=== PATIENT | male | born 1935 | race Caucasian/White ===

== ENCOUNTER → 2017-03-14 | Outpatient (CLI) | payer MEDICARE ==
[2017-03-14 10:44] LABS: Basophils % (A) 0 %; CH 31.6; CHCM 32.7; Eosinophils # (A) 0.3 k/uL (0-0.7); Eosinophils % (A) 3 %; HDW 2.58; HGB 14.3 gm/dL (13.0-17.5); Luc # (Auto) 0.17; Luc % (Auto) 2; Lymphocytes # (A) 1.7 k/uL (1.0-4.8); Lymphocytes % (A) 23 %; MCH 32.2 pg (25.0-35.0); MCHC 33.2 g/dL (31.0-37.0); MCV 97.2 fL (80.0-100.0); Mean Platelet Volume 8.5; Monocytes # (A) 0.4 k/uL (0-1.0); Monocytes % (A) 6 %; Neutrophils # (A) 4.9 k/uL (1.3-7.7); Neutrophils % (A) 66 %; RBC 4.43 m/uL (4.30-5.90); RDW 13.9 % (11.5-15.5); WBC 7.5 k/uL (3.8-10.6); WBC (Perox) 7.45
[2017-03-14 11:02] LABS: ALT 38 U/L (21-72); AST 25 U/L (17-59); Alkaline Phosphatase 65 U/L (38-126); Anion Gap 9 mmol/L; Blood Urea Nitrogen 14 mg/dL (9-20); Carbon Dioxide 25 mmol/L (22-30); Chloride 106 mmol/L (98-107); Cholesterol 159 mg/dL (<200); Glucose 129 mg/dL (74-99); HDL Cholesterol 59 mg/dL (40-60); Non-African American GFR(MDRD) >60 (>60 ml/min/1.73 sqM); Sodium 140 mmol/L (137-145); Total Bilirubin 0.4 mg/dL (0.2-1.3); Total Protein 6.5 g/dL (6.3-8.2)
[2017-03-14 14:16] LABS: Hemoglobin A1C 7.3 % (4.2-6.1)
== END | disposition home or self-care (01) ==
LOC: LABWHC1 10:05
PROVIDERS: ATTEND Family Medicine
DX: E11.9 Type 2 diabetes mellitus without complications (principal)
CPT/HCPCS: 36415; 80053; 80061; 83036; 85025

== ENCOUNTER → 2017-10-10 | Outpatient (CLI) | payer MEDICARE ==
[2017-10-10 11:09] LABS: Basophils % (A) 1 %; Eosinophils # (A) 0.3 k/uL (0-0.7); Eosinophils % (A) 4 %; HCT 46.4 % (39.0-53.0); Lymphocytes # (A) 1.8 k/uL (1.0-4.8); Lymphocytes % (A) 23 %; MCH 29.8 pg (25.0-35.0); MCHC 32.3 g/dL (31.0-37.0); MCV 92.1 fL (80.0-100.0); Mean Platelet Volume 7.5; Monocytes # (A) 0.6 k/uL (0-1.0); Monocytes % (A) 7 %; Neutrophils # (A) 4.9 k/uL (1.3-7.7); Neutrophils % (A) 62 %; Platelet Count 305 k/uL (150-450); RBC 5.03 m/uL (4.30-5.90); RDW 13.7 % (11.5-15.5)
[2017-10-10 11:23] LABS: ALT 30 U/L (21-72); AST 24 U/L (17-59); Albumin 3.9 g/dL (3.5-5.0); Alkaline Phosphatase 75 U/L (38-126); Anion Gap 8 mmol/L; Blood Urea Nitrogen 18 mg/dL (9-20); Calcium 10.2 mg/dL (8.4-10.2); Carbon Dioxide 28 mmol/L (22-30); Chloride 103 mmol/L (98-107); Cholesterol 159 mg/dL (<200); Glucose 137 mg/dL (74-99); HDL Cholesterol 64 mg/dL (40-60); LDL Cholesterol,Calculated 74 mg/dL (0-99); Potassium 5.2 mmol/L (3.5-5.1); Sodium 139 mmol/L (137-145); Total Bilirubin 0.4 mg/dL (0.2-1.3); Total Protein 6.6 g/dL (6.3-8.2); Triglycerides 104 mg/dL (<150)
[2017-10-10 20:40] LABS: Hemoglobin A1C 7.6 % (4.0-6.0)
== END | disposition home or self-care (01) ==
LOC: LABWHC1 10:14
PROVIDERS: ATTEND Family Medicine
DX: E11.9 Type 2 diabetes mellitus without complications (principal)
CPT/HCPCS: 36415; 80053; 80061; 83036; 85025

== ENCOUNTER → 2018-02-06 | Outpatient (CLI) | payer MEDICARE ==
[2018-02-06 11:17] LABS: Basophils % (A) 1 %; Eosinophils # (A) 0.4 k/uL (0-0.7); Eosinophils % (A) 6 %; HCT 46.9 % (39.0-53.0); HGB 15.2 gm/dL (13.0-17.5); Lymphocytes # (A) 1.6 k/uL (1.0-4.8); Lymphocytes % (A) 23 %; MCH 30.8 pg (25.0-35.0); MCHC 32.3 g/dL (31.0-37.0); MCV 95.2 fL (80.0-100.0); Mean Platelet Volume 7.3; Monocytes # (A) 0.4 k/uL (0-1.0); Monocytes % (A) 6 %; Neutrophils # (A) 4.1 k/uL (1.3-7.7); Neutrophils % (A) 60 %; Platelet Count 296 k/uL (150-450); RBC 4.93 m/uL (4.30-5.90); RDW 13.9 % (11.5-15.5); WBC 6.8 k/uL (3.8-10.6)
[2018-02-06 11:31] LABS: ALT 29 U/L (21-72); AST 25 U/L (17-59); Albumin 4.1 g/dL (3.5-5.0); Alkaline Phosphatase 67 U/L (38-126); Anion Gap 7 mmol/L; Blood Urea Nitrogen 18 mg/dL (9-20); Calcium 10.2 mg/dL (8.4-10.2); Carbon Dioxide 27 mmol/L (22-30); Chloride 105 mmol/L (98-107); Cholesterol 161 mg/dL (<200); Glucose 141 mg/dL (74-99); HDL Cholesterol 62 mg/dL (40-60); LDL Cholesterol,Calculated 76 mg/dL (0-99); Potassium 5.1 mmol/L (3.5-5.1); Sodium 139 mmol/L (137-145); Total Bilirubin 0.5 mg/dL (0.2-1.3); Total Protein 6.7 g/dL (6.3-8.2); Triglycerides 114 mg/dL (<150)
[2018-02-06 18:34] LABS: Hemoglobin A1C 7.5 % (4.0-6.0)
== END | disposition home or self-care (01) ==
LOC: LABWHC1 10:47
PROVIDERS: ATTEND Family Medicine
DX: E11.9 Type 2 diabetes mellitus without complications (principal)
CPT/HCPCS: 36415; 80053; 80061; 83036; 85025

== ENCOUNTER → 2018-06-07 | Outpatient (CLI) | payer MEDICARE ==
[2018-06-07 12:09] LABS: Basophils % (A) 0 %; Eosinophils # (A) 0.3 k/uL (0-0.7); Eosinophils % (A) 4 %; HCT 45.1 % (39.0-53.0); HGB 14.6 gm/dL (13.0-17.5); Lymphocytes # (A) 1.5 k/uL (1.0-4.8); Lymphocytes % (A) 22 %; MCHC 32.4 g/dL (31.0-37.0); MCV 95.6 fL (80.0-100.0); Mean Platelet Volume 7.4; Monocytes # (A) 0.4 k/uL (0-1.0); Monocytes % (A) 6 %; Neutrophils # (A) 4.4 k/uL (1.3-7.7); Neutrophils % (A) 65 %; Platelet Count 287 k/uL (150-450); RBC 4.72 m/uL (4.30-5.90); RDW 13.2 % (11.5-15.5); WBC 6.8 k/uL (3.8-10.6)
[2018-06-07 17:06] LABS: Albumin 4.1 g/dL (3.80-4.90); Albumin/Globulin Ratio 2.05 (1.20-2.10); Anion Gap 8.6 mmol/L (4.00-12.00); Calcium 9.6 mg/dL (8.7-10.3); Carbon Dioxide 25.4 mmol/L (21.6-31.8); LDL Cholesterol,Calculated 66.2 mg/dL (0.0-131.0); Total Bilirubin 0.4 mg/dL (0.2-1.2); Total Protein 6.1 g/dL (6.2-8.2); VLDL Calculation 17.8 mg/dL (5.00-40.00)
[2018-06-07 18:55] LABS: Hemoglobin A1C 7.7 % (4.0-6.0)
== END ==
LOC: LABWHC1 10:48
PROVIDERS: ATTEND Family Medicine
DX: E11.9 Type 2 diabetes mellitus without complications (principal); Z12.5 Encounter for screening for malignant neoplasm of prostate
CPT/HCPCS: 36415; 80053; 80061; 83036; 84153; 84443; 85025

== ENCOUNTER 2018-09-11 09:26 | Emergency (ER) | payer MEDICARE ==
[2018-09-11 09:33] VITALS: PULSE 91; RESP 17; TEMP 98.1
[2018-09-11] MEDS ORDERED: SODIUM CHLORIDE 0.9% 1,000 ML IV STA (09:39)
[2018-09-11 10:10] LABS: Basophils % (A) 0 %; Eosinophils # (A) 0.1 k/uL (0-0.7); Eosinophils % (A) 1 %; HGB 13.5 gm/dL (13.0-17.5); Lymphocytes # (A) 1.7 k/uL (1.0-4.8); Lymphocytes % (A) 16 %; MCH 30.7 pg (25.0-35.0); MCHC 31.4 g/dL (31.0-37.0); MCV 97.7 fL (80.0-100.0); Mean Platelet Volume 7.1; Monocytes # (A) 0.7 k/uL (0-1.0); Monocytes % (A) 6 %; Neutrophils # (A) 8.2 k/uL (1.3-7.7); Neutrophils % (A) 75 %; Platelet Count 394 k/uL (150-450); RDW 13.5 % (11.5-15.5)
[2018-09-11 10:24] LABS: ALT 40 U/L (21-72); AST 21 U/L (17-59); Albumin 3.4 g/dL (3.5-5.0); Alkaline Phosphatase 82 U/L (38-126); Amylase <30 U/L (30-110); Anion Gap 7 mmol/L; Blood Urea Nitrogen 21 mg/dL (9-20); Calcium 9.5 mg/dL (8.4-10.2); Carbon Dioxide 26 mmol/L (22-30); Chloride 105 mmol/L (98-107); Glucose 319 mg/dL (74-99); Lipase 97 U/L (23-300); Potassium 4.8 mmol/L (3.5-5.1); Sodium 138 mmol/L (137-145); Total Bilirubin 0.4 mg/dL (0.2-1.3); Total Protein 5.9 g/dL (6.3-8.2)
--- NOTE | 2018-09-11 10:30 | XR ---
EXAMINATION TYPE: XR KUB DATE OF EXAM: 09/11/2018 COMPARISON: NONE HISTORY: Pain TECHNIQUE: Single supine KUB image of the abdomen is obtained FINDINGS: Small bowel demonstrates no evidence for dilatation or air fluid levels. Gas and fecal material is seen in non-distended colon. No convincing evidence for pneumoperitoneum. No unusual calcifications. The lung bases are clear. The osseous structures are intact. IMPRESSION: 1. Overall nonobstructive bowel gas pattern.
[2018-09-11 10:36] LABS: Creatine Kinase 53 U/L (55-170)
[2018-09-11 10:48] LABS: Creatine Kinase MB 2.5 ng/mL (0.0-2.4); Troponin I <0.012 ng/mL (0.000-0.034)
--- NOTE | 2018-09-11 12:24 | CT ---
EXAMINATION TYPE: CT ChestAbdPelvis w con DATE OF EXAM: 09/11/2018 COMPARISON: None HISTORY: Abdominal pain CT DLP: 854.3 mGycm CONTRAST: Contrast enhanced Trauma CT of the Chest, Abdomen and Pelvis is performed with IV Contrast, patient i njected with 100 mL of Isovue 300. Chest: LUNGS: There is no evidence for pneumothorax. The lungs are clear and free of focal contusion or ate lectasis. No pleural effusion MEDIASTINUM: Thoracic aorta is of normal caliber without CT evidence to suggest traumatic induced ao rtic injury. No mediastinal fluid or blood. No pericardial fluid or cardia abnormality. HILAR STRUCTURES: No evidence for mass. No hilar adenopathy is appreciated. OTHER: No significant abnormality. OSSEOUS: No displaced osseous fractures identified. CT ABDOMEN AND PELVIS FINDINGS: LIVER/GB: No focal laceration, contusion or subcapsular hemorrhage. No calcified gallstones. No s pace occupying hepatic lesion. Biliary tree is of normal caliber. PANCREAS: No evidence for transection. No inflammation. No distinct mass. SPLEEN: No focal laceration, contusion or subcapsular hemorrhage. ADRENALS: No hemorrhage. No nodule. No thickening. KIDNEYS/BLADDER: No focal laceration, contusion or subcapsular hemorrhage. No hydronephrosis. No n ephrolithiasis. Left-sided renal cysts noted. BOWEL: Bowel is intact. No evidence for pneumoperitoneum. GENITAL ORGANS: No gross abnormality. LYMPH NODES: No greater than 1cm abdominal or pelvic lymph nodes are appreciated. AORTA: No traumatic aortic injury visualized. OSSEOUS STRUCTURES: No displaced fracture seen. Grade 1 anterolisthesis L4 and L5. Generative change s lumbar spine. OTHER: There is hemorrhage noted adjacent to the right adrenal gland and proximal and mid inferior ve na cava as well as the adjacent duodenum. Hemorrhage extends to the undersurface of the liver. There is duodenal wall thickening noted. Area of hemorrhage is difficult to measure however is estimated at 17.9 x 15.3 x 18.6 cm.Active hemorrhage is not appreciated. There is no evidence for free air. IMPRESSION: 1. No evidence for traumatic injury to the chest. 2. There is hemorrhage noted adjacent to the right adrenal gland and proximal and mid inferior vena cava as well as the adjacent duodenum. Hemorrhage extends to the undersurface of the liver. There is duodenal wall thickening noted. Area of hemorrhage is difficult to measure however is estimated at 17 .9 x 15.3 x 18.6 cm. Origin of the hemorrhage is difficult to elucidate.
--- NOTE | 2018-09-11 12:57 | ED ---
Abdominal Pain HPI - General Chief Complaint: Abdominal Pain Stated Complaint: abdominal pain Time Seen by Provider: 09/11/18 09:31 Source: patient, family, EMS, RN notes reviewed Mode of arrival: EMS Limitations: no limitations - History of Present Illness Initial Comments: This 83-year-old male who states he woke up this morning with some right lower quadrant abdominal pain he had 1 episode nausea vomiting. He looked pale diaphoretic a home was dizzy. Pain was about 3/10 severity. He recently has been treated for apparent respiratory infection with antibiotics and steroids. His glucose was 394. Of note also he states he slipped and fell about 2 weeks ago on the ice labs left side. He denies any head neck or back pain though he did state that the pain somewhat radiated toward the back this morning. No trouble with urination or bowel movements. Fevers chills or other symptoms reported no other modifying factors. Per his he also is had a persistent cough for last several weeks. MD Complaint: abdominal pain - Related Data Home Medications Medication Instructions Recorded Confirmed Aspirin [Adult Low Dose Aspirin EC] 81 mg PO HS 11/06/15 09/11/18 Cholecalciferol [Vitamin D3] 1,000 unit PO DAILY 11/06/15 09/11/18 EPINEPHrine (Auto Inject) [Epipen] 1 dose IM DAILY PRN 11/06/15 09/11/18 Finasteride 5 mg PO HS 11/06/15 09/11/18 Multivitamins, Thera [Multivitamin] 1 tab PO DAILY 11/06/15 09/11/18 Simvastatin 20 mg PO HS 11/06/15 09/11/18 metFORMIN HCL 1,000 mg PO HS 11/06/15 09/11/18 metFORMIN HCL 500 mg PO QAM 11/06/15 09/11/18 Benzonatate [Tessalon Perles] 100 mg PO TID PRN 09/11/18 09/11/18 Cephalexin [Keflex] 500 mg PO Q6H 09/11/18 09/11/18 methylPREDNISolone Dose Pack See Taper PO DAILY 09/11/18 09/11/18 [Medrol Dose Pack] Allergies Allergy/AdvReac Type Severity Reaction Status Date / Time YELLOW JACKET VENOM Allergy Swelling Uncoded 11/06/15 12:09 Review of Systems ROS Statement: Those systems with pertinent positive or pertinent negative responses have been documented in the HPI. ROS Other: All systems not noted in ROS Statement are negative. Past Medical History Past Medical History: Diabetes Mellitus, Hyperlipidemia, Prostate Disorder Additional Past Medical History / Comment(s): BACK PAIN. LEG PAIN. BPH. History of Any Multi-Drug Resistant Organisms: None Reported Past Surgical History: Joint Replacement, Orthopedic Surgery Additional Past Surgical History / Comment(s): BILATEAL KNEE REPLACED. BILATERAL CARPAL TUNNEL. Past Anesthesia/Blood Transfusion Reactions: No Reported Reaction Past Psychological History: Anxiety Smoking Status: Light tobacco smoker Past Alcohol Use History: None Reported Past Drug Use History: None Reported - Past Family History Mother Family Medical History: No Reported History General Exam Limitations: no limitations Course Vital Signs 09/11/18 09:31 Temperature 98.1 F Pulse Rate 91 Respiratory 17 Rate Blood Pressure 115/77 O2 Sat by Pulse 93 L Oximetry Medical Decision Making - Medical Decision Making I did discuss the case with the patient has as well as with surgery on- call due to the extent of the hemorrhage and the involvement of the adrenal and was felt to be needed have endocrinology involvement which is not available at this facility. I did discuss the case with Dr. Bruce at [facility] was agreed to accept the patient transfer after discussion with their surgery service. Patient is hemodynamically stable at this time UA was pending at the time of this dictation. - Lab Data Result diagrams: 09/11/18 09:28 09/11/18 09:28 Lab Results 09/11/18 09/11/18 09/11/18 Range/Units 09:28 09:28 09:28 WBC 11.0 H (3.8-10.6) k/uL RBC 4.40 (4.30-5.90) m/uL Hgb 13.5 (13.0-17.5) gm/dL Hct 43.0 (39.0-53.0) % MCV 97.7 (80.0-100.0) fL MCH 30.7 (25.0-35.0) pg MCHC 31.4 (31.0-37.0) g/dL RDW 13.5 (11.5-15.5) % Plt Count 394 (150-450) k/uL Neutrophils % 75 % Lymphocytes % 16 % Monocytes % 6 % Eosinophils % 1 % Basophils % 0 % Neutrophils # 8.2 H (1.3-7.7) k/uL Lymphocytes # 1.7 (1.0-4.8) k/uL Monocytes # 0.7 (0-1.0) k/uL Eosinophils # 0.1 (0-0.7) k/uL Basophils # 0.0 (0-0.2) k/uL Sodium 138 (137-145) mmol/L Potassium 4.8 (3.5-5.1) mmol/L Chloride 105 (98-107) mmol/L Carbon Dioxide 26 (22-30) mmol/L Anion Gap 7 mmol/L BUN 21 H (9-20) mg/dL Creatinine 0.76 (0.66-1.25) mg/dL Est GFR (CKD-EPI)AfAm >90 (>60 ml/min/1.73 sqM) Est GFR (CKD-EPI)NonAf 86 (>60 ml/min/1.73 sqM) Glucose 319 H (74-99) mg/dL Calcium 9.5 (8.4-10.2) mg/dL Total Bilirubin 0.4 (0.2-1.3) mg/dL AST 21 (17-59) U/L ALT 40 (21-72) U/L Alkaline Phosphatase 82 (38-126) U/L Total Creatine Kinase 53 L (55-170) U/L CK-MB (CK-2) 2.5 H (0.0-2.4) ng/mL CK-MB (CK-2) Rel Index 4.7 Troponin I <0.012 (0.000-0.034) ng/mL Total Protein 5.9 L (6.3-8.2) g/dL Albumin 3.4 L (3.5-5.0) g/dL Amylase <30 L (30-110) U/L Lipase 97 (23-300) U/L - EKG Data -: EKG Interpreted by [facility] EKG shows normal: sinus rhythm (Sinus rhythm rate 75. Interval 176 QRS duration 116 daily since QTC 426/469 incomplete right bundle-branch block) - Radiology Data Radiology results: report reviewed, image reviewed (I did review the imaging and report KUB is nonspecific CAT scan showed evidence of hemorrhage noted adjacent to the right adrenal gland proximal and mid and inferior vena cava as well as adjacent duodenum extensively under service the liver. There is duodenal wall thickening also noted. The area of hemorrhage is estimated at 17.9 x 15.3 x 18.6 cm the origin is difficult to elucidate.) Disposition Clinical Impression: Abdominal pain, Retroperitoneal hemorrhage Disposition: OTHER INSTITUTION NOT DEFINED Condition: Serious Referrals: Alejandro Henriquez MD [Primary Care Provider] - 1-2 days - Out of Hospital Transfer - Req. Specs Out of Hospital Transfer - Requested Specifics: Other Emergency Center
[2018-09-11 13:38] LABS: Appearance,Urine Clear (Clear); Bilirubin,Urine Negative (Negative); Blood,Urine Negative (Negative); Color,Urine Yellow; Glucose,Urine (UA) 1+ (Negative); Ketones,Urine Negative (Negative); Leukocyte Esterase,Urine Negative (Negative); Nitrite,Urine Negative (Negative); PH, Urine 5.5 (5.0-8.0); Protein,Urine Trace (Negative); Urobilinogen,Urine <2.0 mg/dL (<2.0)
[2018-09-11 14:32] LABS: Specific Gravity,Urine >1.050 (1.001-1.035)
[2018-09-11] MEDS ORDERED: HYDROmorphone 0.5 MG/0.5 ML SYRINGE IVP STA (14:41)
[2018-09-11 14:50] VITALS: BP 113/69
== END 2018-09-11 15:10 | disposition short-term general hospital (02) ==
LOC: EC 09:26
DX: R58 Hemorrhage, not elsewhere classified (principal); R10.31 Right lower quadrant pain; R11.2 Nausea with vomiting, unspecified; R42 Dizziness and giddiness; E11.9 Type 2 diabetes mellitus without complications; E78.5 Hyperlipidemia, unspecified; N40.0 Benign prostatic hyperplasia without lower urinary tract symptoms; F17.200 Nicotine dependence, unspecified, uncomplicated; Z79.82 Long term (current) use of aspirin; Z79.84 Long term (current) use of oral hypoglycemic drugs; Z79.899 Other long term (current) drug therapy; Z91.030 Bee allergy status; Z96.653 Presence of artificial knee joint, bilateral
CPT/HCPCS: 36415; 93005; 80053; 82150; 82550; 82553; 83690; 84484; 85025; 81003; 74018; 71260; 74177; 99285; 96374; 96361 ×6; J1170; Q9967

== ENCOUNTER → 2018-09-21 | Outpatient (CLI) | payer MEDICARE ==
[2018-09-21 11:34] LABS: Basophils % (A) 0 %; Eosinophils % (A) 0 %; HCT 43.7 % (39.0-53.0); HGB 13.5 gm/dL (13.0-17.5); Lymphocytes # (A) 1.5 k/uL (1.0-4.8); Lymphocytes % (A) 10 %; MCHC 30.9 g/dL (31.0-37.0); MCV 97.1 fL (80.0-100.0); Mean Platelet Volume 6.4; Monocytes # (A) 0.9 k/uL (0-1.0); Monocytes % (A) 6 %; Neutrophils # (A) 12.4 k/uL (1.3-7.7); Neutrophils % (A) 83 %; Platelet Count 647 k/uL (150-450); RDW 13.9 % (11.5-15.5)
[2018-09-21 16:26] LABS: Albumin 4.7 g/dL (3.80-4.90); Albumin/Globulin Ratio 1.81 (1.60-3.17); Anion Gap 18.7 mmol/L (4.00-12.00); Calcium 10.6 mg/dL (8.7-10.3); Carbon Dioxide 39.3 mmol/L (21.6-31.8); Globulin 2.6 g/dL (1.6-3.3); LDL Cholesterol,Calculated 118.6 mg/dL (0.0-131.0); Potassium 3.8 mmol/L (3.5-5.5); Total Bilirubin 1.1 mg/dL (0.3-1.2); Total Protein 7.3 g/dL (6.2-8.2); VLDL Calculation 40.4 mg/dL (5.00-40.00)
[2018-09-21 20:02] LABS: Hemoglobin A1C 7.8 % (4.0-6.0)
== END | disposition home or self-care (01) ==
LOC: LABWHC1 10:32
PROVIDERS: ATTEND Family Medicine
DX: E11.9 Type 2 diabetes mellitus without complications (principal)
CPT/HCPCS: 36415; 80053; 80061; 83036; 85025

== ENCOUNTER 2018-09-22 15:48 | Inpatient (IN) | payer MEDICARE ==
[2018-09-22] MEDS ORDERED: ONDANSETRON 4 MG/2 ML VIAL IVP STA ×2 (16:55→19:20)
[2018-09-22] MEDS ORDERED: SODIUM CHLORIDE 0.9% 1,000 ML IV STA ×2 (16:55)
[2018-09-22 17:50] LABS: Basophils % (A) 0 %; Eosinophils # (A) 0.1 k/uL (0-0.7); Eosinophils % (A) 1 %; HCT 45.5 % (39.0-53.0); HGB 14.5 gm/dL (13.0-17.5); Lymphocytes # (A) 0.9 k/uL (1.0-4.8); Lymphocytes % (A) 6 %; MCH 30.8 pg (25.0-35.0); MCHC 31.8 g/dL (31.0-37.0); Mean Platelet Volume 6.6; Monocytes % (A) 7 %; Neutrophils # (A) 12.6 k/uL (1.3-7.7); Neutrophils % (A) 86 %; Platelet Count 715 k/uL (150-450); RBC 4.69 m/uL (4.30-5.90); RDW 13.9 % (11.5-15.5); WBC 14.6 k/uL (3.8-10.6)
--- NOTE | 2018-09-22 18:00 | ED ---
Nausea/Vomiting/Diarrhea HPI <Ezekiel Zavala - Last Filed: 09/22/18 19:18> - General Source: patient, RN notes reviewed, old records reviewed Mode of arrival: wheelchair Limitations: no limitations <Grace Zhu - Last Filed: 09/22/18 19:34> - General Chief complaint: Nausea/Vomiting/Diarrhea Stated complaint: Weakness, vomiting Time Seen by Provider: 09/22/18 16:28 - History of Present Illness Initial comments: Patient is an 83-year-old male presents to return today with complaints of nausea and vomiting. Symptoms have been going on for the past 4 days. Patient was recently admitted for significant [id number] peritoneal hemorrhage on to the colon. Since that time he is also been dealing with bronchitis. He's been on 2 rounds of Keflex. He reports that his cough is getting better at this time. Patient reports he followed with his primary care provider they did lab work yesterday. He was discharged from the PCP was Genoveva consistent multiple episodes of vomiting even with Zofran. Patient is concern for dehydration. He reports his been no bloody emesis. He has had normal stools. Normal urination. (Grace Zhu) - Related Data Home Medications Medication Instructions Recorded Confirmed Aspirin [Adult Low Dose Aspirin EC] 81 mg PO HS 11/06/15 09/22/18 Cholecalciferol [Vitamin D3] 1,000 unit PO DAILY 11/06/15 09/22/18 EPINEPHrine (Auto Inject) [Epipen] 1 dose IM DAILY PRN 11/06/15 09/22/18 Finasteride 5 mg PO HS 11/06/15 09/22/18 Multivitamins, Thera [Multivitamin] 1 tab PO DAILY 11/06/15 09/22/18 Simvastatin 20 mg PO HS 11/06/15 09/22/18 metFORMIN HCL 1,000 mg PO HS 11/06/15 09/22/18 metFORMIN HCL 500 mg PO QAM 11/06/15 09/22/18 Cephalexin [Keflex] 500 mg PO Q6H 09/11/18 09/22/18 Allergies Allergy/AdvReac Type Severity Reaction Status Date / Time YELLOW JACKET VENOM Allergy Swelling Uncoded 09/22/18 16:07 Review of Systems ROS Other: All systems not noted in ROS Statement are negative. <Ezekiel Zavala - Last Filed: 09/22/18 19:18> ROS Other: All systems not noted in ROS Statement are negative. <Shahida Zhuily - Last Filed: 09/22/18 19:34> ROS Statement: Those systems with pertinent positive or pertinent negative responses have been documented in the HPI. Past Medical History Past Medical History: Diabetes Mellitus, Hyperlipidemia, Prostate Disorder Additional Past Medical History / Comment(s): BACK PAIN. LEG PAIN. BPH. History of Any Multi-Drug Resistant Organisms: None Reported Past Surgical History: Joint Replacement, Orthopedic Surgery Additional Past Surgical History / Comment(s): BILATEAL KNEE REPLACED. BILATERAL CARPAL TUNNEL. Past Anesthesia/Blood Transfusion Reactions: No Reported Reaction Past Psychological History: Anxiety Smoking Status: Light tobacco smoker Past Alcohol Use History: None Reported Past Drug Use History: None Reported - Past Family History Mother Family Medical History: No Reported History <Grace Zhu - Last Filed: 09/22/18 19:34> General Exam <Ezekiel Zavala - Last Filed: 09/22/18 19:18> Limitations: no limitations General appearance: alert, in no apparent distress Head exam: Present: atraumatic, normocephalic, normal inspection Eye exam: Present: normal appearance, PERRL, EOMI. Absent: scleral icterus, conjunctival injection, periorbital swelling ENT exam: Present: normal exam, mucous membranes moist, other (Poor dentition) Neck exam: Present: normal inspection. Absent: tenderness, meningismus, lymphadenopathy Respiratory exam: Present: normal lung sounds bilaterally. Absent: respiratory distress, wheezes, rales, rhonchi, stridor Cardiovascular Exam: Present: regular rate, normal rhythm, normal heart sounds. Absent: systolic murmur, diastolic murmur, rubs, gallop, clicks GI/Abdominal exam: Present: soft, normal bowel sounds. Absent: distended, tenderness, guarding, rebound, rigid Extremities exam: Present: normal inspection, full ROM, normal capillary refill. Absent: tenderness, pedal edema, joint swelling, calf tenderness Back exam: Present: normal inspection Neurological exam: Present: alert, oriented X3, CN II-XII intact Psychiatric exam: Present: normal affect, normal mood Skin exam: Present: warm, dry, intact, normal color. Absent: rash <Grace Zhu - Last Filed: 09/22/18 19:34> - General Exam Comments Initial Comments: His is a 83-year-old male. Alert and oriented 3. No acute distress. ( Grace Zhu) Vital Signs 09/22/18 09/22/18 09/22/18 16:04 17:33 18:33 Temperature 97.7 F Pulse Rate 101 H 101 H 94 Respiratory 16 20 18 Rate Blood Pressure 97/65 113/69 106/64 O2 Sat by Pulse 90 L 94 L 97 Oximetry 09/22/18 19:28 Temperature Pulse Rate 89 Respiratory 18 Rate Blood Pressure 122/75 O2 Sat by Pulse 98 Oximetry Medical Decision Making - Lab Data Result diagrams: 09/22/18 17:25 09/22/18 17:25 <Ezekiel Zavala - Last Filed: 09/22/18 19:18> - Lab Data Result diagrams: 09/22/18 17:25 09/22/18 17:25 <Grace Zhu - Last Filed: 09/22/18 19:34> - Medical Decision Making Patient reevaluated by myself, Dr. Zavala. Patient resting comfortably in bed. Abdomen is soft and nontender. Case discussed in detail with Dr. Henriquez who will admit his patient. He does agree with ultrasound as well as consult with nephrology and cardiology and general surgery. Patient and family are updated. Aspirin and heparin will be held at this time secondary to concern for abdominal hemorrhage 10 days ago. Patient was transferred to [facility] at that point and observed and discharged. (Ezekiel Zavala) Patient is an 83-year-old male who presents weren't sure today with nausea and vomiting for the past 4 days. Patient's denies any abdominal pain. He is also had abdominal hemorrhage and was admitted to [facility] 10 days ago. Patient was started on 2 L bolus. Mustafa catheter placed measure urine output. Patient's lab work today does show significant decline in renal function within the past 24 hours. BUN of 110 and creatinine of 5.18. Patient white blood cell count is mildly elevated as well could be reactive due to vomiting. Given his abdomen is soft and nontender. Patient will be admitted at this time with consult to general surgery, nephrology and cardiology. He had an elevated troponin likely secondary to acute kidney injury. Patient will have repeat troponins. Due to his recent abdominal hemorrhage we will hold heparin and aspirin. (Grace Zhu) - Lab Data Lab Results 09/22/18 09/22/18 09/22/18 Range/Units 17:25 17:25 17:25 WBC 14.6 H (3.8-10.6) k/uL RBC 4.69 (4.30-5.90) m/uL Hgb 14.5 (13.0-17.5) gm/dL Hct 45.5 (39.0-53.0) % MCV 97.0 (80.0-100.0) fL MCH 30.8 (25.0-35.0) pg MCHC 31.8 (31.0-37.0) g/dL RDW 13.9 (11.5-15.5) % Plt Count 715 H (150-450) k/uL Neutrophils % 86 % Lymphocytes % 6 % Monocytes % 7 % Eosinophils % 1 % Basophils % 0 % Neutrophils # 12.6 H (1.3-7.7) k/uL Lymphocytes # 0.9 L (1.0-4.8) k/uL Monocytes # 1.0 (0-1.0) k/uL Eosinophils # 0.1 (0-0.7) k/uL Basophils # 0.0 (0-0.2) k/uL PT 10.7 (9.0-12.0) sec INR 1.0 (<1.2) APTT 24.9 (22.0-30.0) sec Sodium 141 (137-145) mmol/L Potassium 4.4 (3.5-5.1) mmol/L Chloride 65 L* (98-107) mmol/L Carbon Dioxide 51 H* (22-30) mmol/L Anion Gap 25 mmol/L BUN 111 H* (9-20) mg/dL Creatinine 5.18 H (0.66-1.25) mg/dL Est GFR (CKD-EPI)AfAm 11 (>60 ml/min/1.73 sqM) Est GFR (CKD-EPI)NonAf 10 (>60 ml/min/1.73 sqM) Glucose 456 H (74-99) mg/dL Calcium 9.5 (8.4-10.2) mg/dL Total Bilirubin 1.4 H (0.2-1.3) mg/dL AST 30 (17-59) U/L ALT 36 (21-72) U/L Alkaline Phosphatase 132 H (38-126) U/L Troponin I (0.000-0.034) ng/mL Total Protein 8.2 (6.3-8.2) g/dL Albumin 4.5 (3.5-5.0) g/dL Amylase 47 (30-110) U/L Lipase 144 (23-300) U/L Blood Type Blood Type Confirm Blood Type Recheck Antibody Screen Spec Expiration Date 09/22/18 09/22/18 09/22/18 Range/Units 17:25 17:25 18:42 WBC (3.8-10.6) k/uL RBC (4.30-5.90) m/uL Hgb (13.0-17.5) gm/dL Hct (39.0-53.0) % MCV (80.0-100.0) fL MCH (25.0-35.0) pg MCHC (31.0-37.0) g/dL RDW (11.5-15.5) % Plt Count (150-450) k/uL Neutrophils % % Lymphocytes % % Monocytes % % Eosinophils % % Basophils % % Neutrophils # (1.3-7.7) k/uL Lymphocytes # (1.0-4.8) k/uL Monocytes # (0-1.0) k/uL Eosinophils # (0-0.7) k/uL Basophils # (0-0.2) k/uL PT (9.0-12.0) sec INR (<1.2) APTT (22.0-30.0) sec Sodium (137-145) mmol/L Potassium (3.5-5.1) mmol/L Chloride (98-107) mmol/L Carbon Dioxide (22-30) mmol/L Anion Gap mmol/L BUN (9-20) mg/dL Creatinine (0.66-1.25) mg/dL Est GFR (CKD-EPI)AfAm (>60 ml/min/1.73 sqM) Est GFR (CKD-EPI)NonAf (>60 ml/min/1.73 sqM) Glucose (74-99) mg/dL Calcium (8.4-10.2) mg/dL Total Bilirubin (0.2-1.3) mg/dL AST (17-59) U/L ALT (21-72) U/L Alkaline Phosphatase (38-126) U/L Troponin I 0.787 H* (0.000-0.034) ng/mL Total Protein (6.3-8.2) g/dL Albumin (3.5-5.0) g/dL Amylase (30-110) U/L Lipase (23-300) U/L Blood Type AB Positive Blood Type Confirm AB Positive Blood Type Recheck CABO Indicated Antibody Screen NEGATIVE Spec Expiration Date 09/25/20182324 Disposition <Ezekiel Zavala - Last Filed: 09/22/18 19:18> Is patient prescribed a controlled substance at d/c from ED?: No Time of Disposition: 19:33 <Grace Zhu - Last Filed: 09/22/18 19:34> Clinical Impression: Acute renal failure, Dehydration, Nausea & vomiting, Elevated troponin Disposition: ADMITTED IP TO THIS HOSP Condition: Good Referrals: Alejandro Henriquez MD [Primary Care Provider] - 1-2 days
[2018-09-22 18:03] LABS: Albumin 4.5 g/dL (3.5-5.0); Calcium 9.5 mg/dL (8.4-10.2); Potassium 4.4 mmol/L (3.5-5.1); Total Bilirubin 1.4 mg/dL (0.2-1.3); Total Protein 8.2 g/dL (6.3-8.2)
[2018-09-22 18:05] LABS: Prothrombin Time 10.7 sec (9.0-12.0)
[2018-09-22 18:06] LABS: Partial Thromboplastin Time 24.9 sec (22.0-30.0)
--- NOTE | 2018-09-22 18:15 | XR ---
EXAMINATION TYPE: XR chest 2V DATE OF EXAM: 09/22/2018 COMPARISON: NONE HISTORY: Weakness and vomiting TECHNIQUE: Frontal and lateral views of the chest are obtained. FINDINGS: There is no heart failure nor confluent pneumonic infiltrate. Costophrenic angles are nicolette r. Thoracic aorta is atheromatous. Heart size is normal. Bony thorax appears intact. IMPRESSION: No active cardiopulmonary disease. Normal heart.
[2018-09-22] MEDS ORDERED: SODIUM CHLORIDE 0.9% 1,000 ML IV ONE (18:30)
[2018-09-22] MEDS ORDERED: INSULIN REGULAR 100 UNIT/ML VIAL IV ONE (19:01)
[2018-09-22] MEDS ORDERED: Acetaminophen-Codeine 300-30mg TAB PO PRN (19:34)
[2018-09-22] MEDS ORDERED: ACETAMINOPHEN TAB 325 MG TAB PO PRN (19:34)
[2018-09-22] MEDS ORDERED: IBUPROFEN 400 MG TAB PO PRN (19:34)
[2018-09-22] MEDS ORDERED: NALOXONE 0.4 MG/ML 1 ML VIAL IV PRN (19:34)
[2018-09-22] MEDS ORDERED: MORPHINE SULFATE 4 MG/ML SYRINGE IV PRN (19:34)
[2018-09-22] MEDS ORDERED: SODIUM CHLORIDE 0.9% 1,000 ML IV SCH (19:45)
[2018-09-22 20:02] LABS: Appearance,Urine Cloudy (Clear); Bilirubin,Urine 1+ (Negative); Blood,Urine Small (Negative); Color,Urine Yellow; Glucose,Urine (UA) 1+ (Negative); Hyaline Casts,Urine 32 /lpf (0-2); Ketones,Urine Negative (Negative); Leukocyte Esterase,Urine Negative (Negative); Mucus,Urine Few /hpf; Nitrite,Urine Negative (Negative); Protein,Urine 1+ (Negative); RBC,Urine 1 /hpf (0-5); Specific Gravity,Urine 1.018 (1.001-1.035); Squamous Epithelial Cell,Urine 2 /hpf (0-4); WBC,Urine 2 /hpf (0-5)
--- NOTE | 2018-09-22 20:46 | US ---
EXAMINATION TYPE: US abdomen complete DATE OF EXAM: 09/22/2018 COMPARISON: NONE CLINICAL HISTORY: Pain. Vomiting.Hemorrhage seen on CT scan 09/11/2018. EXAM MEASUREMENTS: Liver Length: 15.5 cm Gallbladder Wall: 0.3 cm CBD: 0.7 cm Spleen: 8.9 cm Right Kidney: 10.3 x 4.8 x 5.1 cm Left Kidney: 9.8 x 4.5 x 5.0 cm Pancreas: Duct visualized 3mm. Liver: wnl Gallbladder: wnl Evidence for sonographic Ryan's sign: No CBD: wnl Spleen: wnl Right Kidney: wnl Left Kidney: Two cystic areas seen largest lower pole 2.2 x 1.7 x 1.1cm. Upper IVC: wnl Abd Aorta: wnl Complex area seen mid line 19 x 6 x 11cm. IMPRESSION: There is a large fluid collection in the anterior abdomen which is somewhat echogenic and consistent with complex fluid. There is a dilated gallbladder more than 5 cm in diameter suggestive of cholecystitis. No intrahepatic bile ducts are dilated. No pancreatic mass seen. This patient has r etroperitoneal complex high attenuation on the old CT scan of 09/11/2018 that showed extensive retrope ritoneal acute hemorrhage. Findings today could be large chronic abdominal hematoma. Left renal cortical cysts unchanged compared to old CT scan.
[2018-09-22 21:48] LABS: Glucose,Whole Blood 230 mg/dL (75-99)
[2018-09-22] MEDS ORDERED: INSULIN REGULAR 100 UNIT in SODIUM CHLORIDE 0.9% 100 ML IV SCH (23:15)
[2018-09-22 23:34] LABS: Glucose,Whole Blood 232 mg/dL (75-99)
[2018-09-23] MEDS: SODIUM CHLORIDE 0.9% 1,000 ML IV SCH ×4 (00:01→18:42)
[2018-09-23 02:08] LABS: Glucose,Whole Blood 179 mg/dL (75-99)
[2018-09-23] MEDS: ONDANSETRON 4 MG/2 ML VIAL IVP PRN ×2 (03:33→13:22)
[2018-09-23 04:05] LABS: Glucose,Whole Blood 149 mg/dL (75-99)
[2018-09-23 06:02] LABS: Basophils % (A) 0 %; Eosinophils # (A) 0.1 k/uL (0-0.7); Eosinophils % (A) 0 %; HGB 12.8 gm/dL (13.0-17.5); Lymphocytes # (A) 1.3 k/uL (1.0-4.8); Lymphocytes % (A) 6 %; MCH 30.9 pg (25.0-35.0); MCHC 31.9 g/dL (31.0-37.0); Mean Platelet Volume 6.6; Monocytes # (A) 1.4 k/uL (0-1.0); Monocytes % (A) 7 %; Neutrophils # (A) 17.5 k/uL (1.3-7.7); Neutrophils % (A) 85 %; Platelet Count 594 k/uL (150-450); RBC 4.12 m/uL (4.30-5.90); RDW 13.9 % (11.5-15.5); WBC 20.5 k/uL (3.8-10.6)
[2018-09-23 06:06] LABS: Glucose,Whole Blood 153 mg/dL (75-99)
[2018-09-23 06:07] LABS: Albumin 3.8 g/dL (3.5-5.0); Calcium 8.7 mg/dL (8.4-10.2); Potassium 3.6 mmol/L (3.5-5.1); Total Bilirubin 1.2 mg/dL (0.2-1.3); Total Protein 6.9 g/dL (6.3-8.2)
[2018-09-23] MEDS: INSULIN ASPART (NovoLOG) 100 UNIT/ML VIAL SQ SCH ×3 (06:29→18:43)
[2018-09-23] MEDS: PANTOPRAZOLE 40 MG/10 ML VIAL IV SCH (08:21)
[2018-09-23 08:26] LABS: Glucose,Whole Blood 125 mg/dL (75-99)
[2018-09-23 09:18] LABS: Glucose,Whole Blood 167 mg/dL (75-99)
[2018-09-23 11:49] LABS: Glucose,Whole Blood 176 mg/dL (75-99)
--- NOTE | 2018-09-23 12:10 | P.HPIM ---
History of Present Illness 83-year-old male was admitted to the emergency room with history of 4 days of vomiting and nausea. Patient was in [facility] for peritoneal hemorrhage on 09/11/2018. Follow-up with family physician was put on Zofran is not effective. Sent to the emergency room after continued vomiting. Patient was found to be dehydrated and acute renal failure. Patient has history of peritoneal hemorrhage diabetes type [address] of the abdomen shows dilated gallbladder Review of Systems Constitutional: Reports fatigue, Reports weakness Gastrointestinal: Reports nausea, Reports vomiting Past Medical History Past Medical History: Diabetes Mellitus, Hyperlipidemia, Prostate Disorder Additional Past Medical History / Comment(s): BACK PAIN. LEG PAIN. brochitis, sinusitis, BPH, anxiety. occ constipation,hx retroperitonel bleed History of Any Multi-Drug Resistant Organisms: None Reported Past Surgical History: Joint Replacement, Orthopedic Surgery Additional Past Surgical History / Comment(s): BILATERAL KNEE REPLACEMENTS. BILATERAL CARPAL TUNNEL.ALECIA CATARACTS Past Anesthesia/Blood Transfusion Reactions: No Reported Reaction Smoking Status: Current some day smoker - Past Family History Mother Family Medical History: Cancer Additional Family Medical History / Comment(s): DJD, SCOLIOSIS, BREAST CANCER AGE 95 AT AGE 96 Father Additional Family Medical History / Comment(s): AT AGE 90-CARDIAC Medications and Allergies Home Medications Medication Instructions Recorded Confirmed Type Aspirin [Adult Low Dose Aspirin EC] 81 mg PO HS 11/06/15 09/22/18 History Cholecalciferol [Vitamin D3] 1,000 unit PO DAILY 11/06/15 09/22/18 History EPINEPHrine (Auto Inject) [Epipen] 1 dose IM DAILY PRN 11/06/15 09/22/18 History Finasteride 5 mg PO HS 11/06/15 09/22/18 History Multivitamins, Thera [Multivitamin] 1 tab PO DAILY 11/06/15 09/22/18 History Simvastatin 20 mg PO HS 11/06/15 09/22/18 History metFORMIN HCL 1,000 mg PO HS 11/06/15 09/22/18 History metFORMIN HCL 500 mg PO QAM 11/06/15 09/22/18 History Cephalexin [Keflex] 500 mg PO Q6H 09/11/18 09/22/18 History Allergies Allergy/AdvReac Type Severity Reaction Status Date / Time YELLOW JACKET VENOM Allergy Swelling Uncoded 09/22/18 16:07 Physical Exam Vitals: Vital Signs Temp Pulse Pulse Resp BP BP Pulse Ox 09/23/18 08:00 94 18 131/69 92 L 09/23/18 04:56 98 F 97 18 121/68 92 L 09/23/18 00:15 97.5 F L 90 18 129/61 96 09/22/18 22:08 97.5 F L 88 20 131/72 91 L 09/22/18 21:04 98 F 88 18 117/75 97 09/22/18 19:28 89 18 122/75 98 09/22/18 18:33 94 18 106/64 97 09/22/18 17:33 101 H 20 113/69 94 L 09/22/18 16:04 97.7 F 101 H 16 97/65 90 L Intake and Output 09/22/18 09/23/18 09/23/18 22:59 06:59 14:59 Intake Total 642.595 3.045 Balance 642.595 3.045 Intake: Intake, IV Titration 642.595 3.045 Amount Insulin Regular 100 unit 17.595 3.045 In Sodium Chloride 0.9% 100 ml @ Titrate IV .Q0M [facility] Rx#:[id number] Sodium Chloride 0.9% 1, 625 000 ml @ 125 mls/hr IV . Q8H [facility] Rx#:[id number] Other: Voiding Method Indwelling Catheter Indwelling Catheter Weight 68.946 kg 68.4 kg - Constitutional General appearance: mild distress - EENT Eyes: PERRLA Ears: bilateral: normal - Neck Neck: normal ROM - Respiratory Respiratory: bilateral: CTA - Cardiovascular Rhythm: regular - Gastrointestinal General gastrointestinal: normal bowel sounds, soft Localized gastrointestinal: tender: epigastric periumbilical - Integumentary Integumentary: normal - Neurologic Neurologic: CNII-XII intact - Musculoskeletal Musculoskeletal: generalized weakness - Psychiatric Psychiatric: A&O x's 3, appropriate affect, intact judgment & insight Results CBC & Chem 7: 09/23/18 05:22 09/23/18 05:22 Labs: Abnormal Lab Results - Last 24 Hours (Table) 09/22/18 09/22/18 09/22/18 Range/Units 17:25 17:25 17:25 WBC 14.6 H (3.8-10.6) k/uL RBC (4.30-5.90) m/uL Hgb (13.0-17.5) gm/dL Plt Count 715 H (150-450) k/uL Neutrophils # 12.6 H (1.3-7.7) k/uL Lymphocytes # 0.9 L (1.0-4.8) k/uL Monocytes # (0-1.0) k/uL Chloride 65 L* (98-107) mmol/L Carbon Dioxide 51 H* (22-30) mmol/L BUN 111 H* (9-20) mg/dL Creatinine 5.18 H (0.66-1.25) mg/dL Glucose 456 H (74-99) mg/dL POC Glucose (mg/dL) (75-99) mg/dL Total Bilirubin 1.4 H (0.2-1.3) mg/dL Alkaline Phosphatase 132 H (38-126) U/L Troponin I 0.787 H* (0.000-0.034) ng/mL Urine Protein (Negative) Urine Glucose (UA) (Negative) Urine Blood (Negative) Urine Bilirubin (Negative) Hyaline Casts (0-2) /lpf Urine Mucus (None) /hpf 09/22/18 09/22/18 09/22/18 Range/Units 19:45 21:47 22:34 WBC (3.8-10.6) k/uL RBC (4.30-5.90) m/uL Hgb (13.0-17.5) gm/dL Plt Count (150-450) k/uL Neutrophils # (1.3-7.7) k/uL Lymphocytes # (1.0-4.8) k/uL Monocytes # (0-1.0) k/uL Chloride (98-107) mmol/L Carbon Dioxide (22-30) mmol/L BUN (9-20) mg/dL Creatinine (0.66-1.25) mg/dL Glucose (74-99) mg/dL POC Glucose (mg/dL) 230 H (75-99) mg/dL Total Bilirubin (0.2-1.3) mg/dL Alkaline Phosphatase (38-126) U/L Troponin I 0.814 H* (0.000-0.034) ng/mL Urine Protein 1+ H (Negative) Urine Glucose (UA) 1+ H (Negative) Urine Blood Small H (Negative) Urine Bilirubin 1+ H (Negative) Hyaline Casts 32 H (0-2) /lpf Urine Mucus Few H (None) /hpf 09/22/18 09/23/18 09/23/18 Range/Units 23:33 02:07 04:03 WBC (3.8-10.6) k/uL RBC (4.30-5.90) m/uL Hgb (13.0-17.5) gm/dL Plt Count (150-450) k/uL Neutrophils # (1.3-7.7) k/uL Lymphocytes # (1.0-4.8) k/uL Monocytes # (0-1.0) k/uL Chloride (98-107) mmol/L Carbon Dioxide (22-30) mmol/L BUN (9-20) mg/dL Creatinine (0.66-1.25) mg/dL Glucose (74-99) mg/dL POC Glucose (mg/dL) 232 H 179 H 149 H (75-99) mg/dL Total Bilirubin (0.2-1.3) mg/dL Alkaline Phosphatase (38-126) U/L Troponin I (0.000-0.034) ng/mL Urine Protein (Negative) Urine Glucose (UA) (Negative) Urine Blood (Negative) Urine Bilirubin (Negative) Hyaline Casts (0-2) /lpf Urine Mucus (None) /hpf 09/23/18 09/23/18 09/23/18 Range/Units 05:22 05:22 05:22 WBC 20.5 H (3.8-10.6) k/uL RBC 4.12 L (4.30-5.90) m/uL Hgb 12.8 L (13.0-17.5) gm/dL Plt Count 594 H (150-450) k/uL Neutrophils # 17.5 H (1.3-7.7) k/uL Lymphocytes # (1.0-4.8) k/uL Monocytes # 1.4 H (0-1.0) k/uL Chloride 78 L (98-107) mmol/L Carbon Dioxide 49 H* (22-30) mmol/L BUN 114 H* (9-20) mg/dL Creatinine 4.98 H (0.66-1.25) mg/dL Glucose 158 H (74-99) mg/dL POC Glucose (mg/dL) (75-99) mg/dL Total Bilirubin (0.2-1.3) mg/dL Alkaline Phosphatase (38-126) U/L Troponin I 0.825 H* (0.000-0.034) ng/mL Urine Protein (Negative) Urine Glucose (UA) (Negative) Urine Blood (Negative) Urine Bilirubin (Negative) Hyaline Casts (0-2) /lpf Urine Mucus (None) /hpf 09/23/18 09/23/18 09/23/18 Range/Units 06:06 08:22 09:15 WBC (3.8-10.6) k/uL RBC (4.30-5.90) m/uL Hgb (13.0-17.5) gm/dL Plt Count (150-450) k/uL Neutrophils # (1.3-7.7) k/uL Lymphocytes # (1.0-4.8) k/uL Monocytes # (0-1.0) k/uL Chloride (98-107) mmol/L Carbon Dioxide (22-30) mmol/L BUN (9-20) mg/dL Creatinine (0.66-1.25) mg/dL Glucose (74-99) mg/dL POC Glucose (mg/dL) 153 H 125 H 167 H (75-99) mg/dL Total Bilirubin (0.2-1.3) mg/dL Alkaline Phosphatase (38-126) U/L Troponin I (0.000-0.034) ng/mL Urine Protein (Negative) Urine Glucose (UA) (Negative) Urine Blood (Negative) Urine Bilirubin (Negative) Hyaline Casts (0-2) /lpf Urine Mucus (None) /hpf 09/23/18 Range/Units 11:24 WBC (3.8-10.6) k/uL RBC (4.30-5.90) m/uL Hgb (13.0-17.5) gm/dL Plt Count (150-450) k/uL Neutrophils # (1.3-7.7) k/uL Lymphocytes # (1.0-4.8) k/uL Monocytes # (0-1.0) k/uL Chloride (98-107) mmol/L Carbon Dioxide (22-30) mmol/L BUN (9-20) mg/dL Creatinine (0.66-1.25) mg/dL Glucose (74-99) mg/dL POC Glucose (mg/dL) 176 H (75-99) mg/dL Total Bilirubin (0.2-1.3) mg/dL Alkaline Phosphatase (38-126) U/L Troponin I (0.000-0.034) ng/mL Urine Protein (Negative) Urine Glucose (UA) (Negative) Urine Blood (Negative) Urine Bilirubin (Negative) Hyaline Casts (0-2) /lpf Urine Mucus (None) /hpf Chest x-ray: report reviewed CT scan - abdomen: report reviewed Thrombosis Risk Factor Assmnt - Choose All That Apply Each Factor Represents 1 point: Obesity (BMI >25) Each Risk Factor Represents 2 Points: Age 61-74 years Each Risk Factor Represents 3 Points: Age 75 years or older Thrombosis Risk Factor Assessment Total Risk Factor Score: 6 Thrombosis Risk Factor Assessment Level: High Risk Assessment and Plan Plan: Assessment Acute renal failure secondary to vomiting Dehydration Elevated troponin most likely related to acute renal failure Leukocytosis History of peritoneal hemorrhage Diabetes type 2 Hyperlipidemia BPH EKG right bundle branch block Dilated gallbladder Plan Consultation with nephrology surgery and cardiology Continue hydration May be transferred to intensive care if condition worsens
--- NOTE | 2018-09-23 12:13 | P.NPCON ---
History of Present Illness - Reason for Consult acute renal failure - History of Present Illness Reason for consultation: Acute kidney injury and metabolic alkalosis History of present illness: Patient is a 83-year-old male seen in consultation for acute kidney injury and metabolic alkalosis. Patient presented to the hospital with 2-3 days of persistent vomiting. In the emergency room his blood pressure was in the 90s. He did receive 2 L normal saline bolus. He is maintained on normal saline at 1 25 mL an hour at this time. His baseline creatinine is 1. Creatinine was 5.18 on admission and is 4.98 today. He has a Mustafa catheter in place. Chest x-ray revealed no evidence of volume overload. Denies use of NSAIDs. He does take metformin for diabetes which is currently held. Denies diarrhea. Denies family history of renal disease. Blood pressure is now better controlled. No fever or chills. Patient was seen by his PCP as an outpatient and was given Zofran for the vomiting however due to worsening renal function he was advised to come to the hospital. Patient was recently diagnosed with retroperitoneal hemorrhage earlier this month. Vital signs are stable. General: The patient appeared well nourished and normally developed. HEENT: Head exam is unremarkable. Neck is without jugular venous distension. LUNGS: Lungs are clear to auscultation and percussion. Breath sounds decreased. HEART: Rate and Rhythm are regular. First and second heart sounds normal. No murmurs, rubs or gallops. ABDOMEN: Abdominal exam reveals normal bowel sounds. Non-tender and non- distended. No evidence of peritonitis. EXTREMITITES: No clubbing, cyanosis, or edema. Past Medical History Past Medical History: Diabetes Mellitus, Hyperlipidemia, Prostate Disorder Additional Past Medical History / Comment(s): BACK PAIN. LEG PAIN. brochitis, sinusitis, BPH, anxiety. occ constipation,hx retroperitonel bleed History of Any Multi-Drug Resistant Organisms: None Reported Past Surgical History: Joint Replacement, Orthopedic Surgery Additional Past Surgical History / Comment(s): BILATERAL KNEE REPLACEMENTS. BILATERAL CARPAL TUNNEL.ALECIA CATARACTS Past Anesthesia/Blood Transfusion Reactions: No Reported Reaction Smoking Status: Current some day smoker - Past Family History Mother Family Medical History: Cancer Additional Family Medical History / Comment(s): DJD, SCOLIOSIS, BREAST CANCER AGE 95 AT AGE 96 Father Additional Family Medical History / Comment(s): AT AGE 90-CARDIAC Medications and Allergies Home Medications Medication Instructions Recorded Confirmed Type Aspirin [Adult Low Dose Aspirin EC] 81 mg PO HS 11/06/15 09/22/18 History Cholecalciferol [Vitamin D3] 1,000 unit PO DAILY 11/06/15 09/22/18 History EPINEPHrine (Auto Inject) [Epipen] 1 dose IM DAILY PRN 11/06/15 09/22/18 History Finasteride 5 mg PO HS 11/06/15 09/22/18 History Multivitamins, Thera [Multivitamin] 1 tab PO DAILY 11/06/15 09/22/18 History Simvastatin 20 mg PO HS 11/06/15 09/22/18 History metFORMIN HCL 1,000 mg PO HS 11/06/15 09/22/18 History metFORMIN HCL 500 mg PO QAM 11/06/15 09/22/18 History Cephalexin [Keflex] 500 mg PO Q6H 09/11/18 09/22/18 History Allergies Allergy/AdvReac Type Severity Reaction Status Date / Time YELLOW JACKET VENOM Allergy Swelling Uncoded 09/22/18 16:07 Physical Exam Vitals: Vital Signs Temp Pulse Pulse Resp BP BP Pulse Ox 09/23/18 08:00 94 18 131/69 92 L 09/23/18 04:56 98 F 97 18 121/68 92 L 09/23/18 00:15 97.5 F L 90 18 129/61 96 09/22/18 22:08 97.5 F L 88 20 131/72 91 L 09/22/18 21:04 98 F 88 18 117/75 97 09/22/18 19:28 89 18 122/75 98 09/22/18 18:33 94 18 106/64 97 09/22/18 17:33 101 H 20 113/69 94 L 09/22/18 16:04 97.7 F 101 H 16 97/65 90 L Intake and Output 09/22/18 09/23/18 09/23/18 22:59 06:59 14:59 Intake Total 642.595 3.045 Balance 642.595 3.045 Intake: Intake, IV Titration 642.595 3.045 Amount Insulin Regular 100 unit 17.595 3.045 In Sodium Chloride 0.9% 100 ml @ Titrate IV .Q0M [facility] Rx#:[id number] Sodium Chloride 0.9% 1, 625 000 ml @ 125 mls/hr IV . Q8H [facility] Rx#:[id number] Other: Voiding Method Indwelling Catheter Indwelling Catheter Weight 68.946 kg 68.4 kg Results - Lab Results Most recent lab results Calcium 8.7 mg/dL (8.4-10.2) 09/23/18 05:22 09/23/18 05:22 09/23/18 05:22 Assessment and Plan Plan: Assessment: 1. Acute kidney injury secondary to ATN secondary to intravascular volume depletion from vomiting. Creatinine 5.1 and on admission and is 4.98 today. Abdominal ultrasound revealed no evidence of hydronephrosis. Baseline creatinine near 1. 2. Metabolic alkalosis secondary to hydrogen ion losses from vomiting. The patient is also hypochloremic which will maintain alkalosis by impairing bicarb secretion. 3. Mild hypokalemia from poor oral intake. 4. Diabetes mellitus. 5. Recent retroperitoneal hemorrhage. Hemoglobin is stable. 6. Nausea and vomiting with concern for cholecystitis. Surgery has been consulted. Plan: Increase rate of normal saline to 150 mL an hour. Replace potassium. 40 mEq of potassium chloride today. Maintain Mustafa catheter for now. Avoid nephrotoxins. Repeat electrolytes in the morning. Thank you for the consultation. I will continue to follow the patient with you during his hospital stay.
[2018-09-23] MEDS ORDERED: PROPAFENONE 150 MG TAB PO STA (12:21)
[2018-09-23] MEDS: POTASSIUM CHLORIDE 10 MEQ in WATER FOR INJECTION 1 100ML.BAG IVPB SCH ×4 (13:53→16:55)
[2018-09-23 14:29] LABS: Glucose,Whole Blood 136 mg/dL (75-99)
[2018-09-23 16:06] LABS: Glucose,Whole Blood 115 mg/dL (75-99)
--- NOTE | 2018-09-23 16:35 | ECHOF ---
Referral Reason:Elevated trop MEASUREMENTS -------- HEIGHT: 165.1 cm WEIGHT: 68.0 kg BP: 121/68 IVSd: 1.1 cm (0.6 - 1.1) LVIDd: 3.6 cm (3.9 - 5.3) LVPWd: 1.4 cm (0.6 - 1.1) IVSs: 1.4 cm LVIDs: 3.1 cm LVPWs: 1.4 cm Ao Diam: 3.3 cm (2.0 - 3.7) MV EXCURSION: 17.701 mm (> 18.000) MV EF SLOPE: 67 mm/s (70 - 150) EPSS: 0.8 cm MV E Kristopher: 0.45 m/s MV DecT: 279 ms MV A Kristopher: 0.65 m/s MV E/A Ratio: 0.69 RAP: 5.00 mmHg RVSP: 23.58 mmHg FINDINGS -------- Sinus rhythm. This was a techncally difficult study with suboptimal views, , Lumason utilized for enhancement of im ages. The left ventricular size is normal. There is borderline concentric left ventricular hypertrophy. Overall left ventricular systolic function is normal with, an EF between 55 - 60 %. The right ventricle is normal in size. The left atrial size is normal. The right atrial size is normal. 5.0mg OF Lumason UTLIZED: 2 OR MORE WALL SEGMENTS NOT VISUALIZED. There is mild aortic valve sclerosis. Mild mitral annular calcification present. Mild mitral regurgitation is present. Mild tricuspid regurgitation present. There is no evidence of pulmonary hypertension. The right v entricular systolic pressure, as measured by Doppler, is 23.58mmHg. The pulmonic valve was not well visualized. The aortic root size is normal. There is no pericardial effusion. CONCLUSIONS -------- 1. This was a techncally difficult study with suboptimal views, , Lumason utilized for enhancement of images. 2. The left ventricular size is normal. 3. There is borderline concentric left ventricular hypertrophy. 4. Overall left ventricular systolic function is normal with, an EF between 55 - 60 %. 5. The right ventricle is normal in size. 6. The left atrial size is normal. 7. The right atrial size is normal. 8. 5.0mg OF Lumason UTLIZED: 2 OR MORE WALL SEGMENTS NOT VISUALIZED. 9. There is mild aortic valve sclerosis. 10. Mild mitral annular calcification present. 11. Mild mitral regurgitation is present. 12. Mild tricuspid regurgitation present. 13. There is no evidence of pulmonary hypertension. 14. The right ventricular systolic pressure, as measured by Doppler, is 23.58mmHg. 15. The pulmonic valve was not well visualized. 16. The aortic root size is normal. 17. There is no pericardial effusion. CHRONOMETER ASSEMBLER AND ADJUSTER: Samira Howard RDCS
--- NOTE | 2018-09-23 16:55 | P.GSCN ---
History of Present Illness Consult date: 09/23/18 Reason for Consult: Intractable vomiting History of present illness: Patient presents to the hospital with intractable vomiting. Patient was recently seen in the ER and sent to [facility] for a large retroperitoneal bleed. Etiology unclear but thought to be possibly related to excessive coughing. Patient was doing better however the last several days resulted in intractable vomiting. Hallways bilious. Unable to keep anything down at this time. Vague abdominal discomfort. Ultrasound showed a large hematoma. Review of Systems The patient denies any acute changes in vision or hearing, no dysphagia or odynophagia, no chest pain or shortness of breath, no dysuria or hematuria, no headache, no runny nose, no rectal bleeding or melena, no unexplained weight loss Past Medical History Past Medical History: Diabetes Mellitus, Hyperlipidemia, Prostate Disorder Additional Past Medical History / Comment(s): BACK PAIN. LEG PAIN. brochitis, sinusitis, BPH, anxiety. occ constipation,hx retroperitonel bleed History of Any Multi-Drug Resistant Organisms: None Reported Past Surgical History: Joint Replacement, Orthopedic Surgery Additional Past Surgical History / Comment(s): BILATERAL KNEE REPLACEMENTS. BILATERAL CARPAL TUNNEL.ALECIA CATARACTS Past Anesthesia/Blood Transfusion Reactions: No Reported Reaction Smoking Status: Current some day smoker - Past Family History Mother Family Medical History: Cancer Additional Family Medical History / Comment(s): DJD, SCOLIOSIS, BREAST CANCER AGE 95 AT AGE 96 Father Additional Family Medical History / Comment(s): AT AGE 90-CARDIAC Medications and Allergies Home Medications Medication Instructions Recorded Confirmed Type Aspirin [Adult Low Dose Aspirin EC] 81 mg PO HS 11/06/15 09/22/18 History Cholecalciferol [Vitamin D3] 1,000 unit PO DAILY 11/06/15 09/22/18 History EPINEPHrine (Auto Inject) [Epipen] 1 dose IM DAILY PRN 11/06/15 09/22/18 History Finasteride 5 mg PO HS 11/06/15 09/22/18 History Multivitamins, Thera [Multivitamin] 1 tab PO DAILY 11/06/15 09/22/18 History Simvastatin 20 mg PO HS 11/06/15 09/22/18 History metFORMIN HCL 1,000 mg PO HS 11/06/15 09/22/18 History metFORMIN HCL 500 mg PO QAM 11/06/15 09/22/18 History Cephalexin [Keflex] 500 mg PO Q6H 09/11/18 09/22/18 History Allergies Allergy/AdvReac Type Severity Reaction Status Date / Time YELLOW JACKET VENOM Allergy Swelling Uncoded 09/22/18 16:07 Surgical - Exam Vital Signs Temp Pulse Resp BP Pulse Ox 97.7 F 101 H 16 97/65 90 L 09/22/18 16:04 09/22/18 16:04 09/22/18 16:04 09/22/18 16:04 09/22/18 16:04 Physical exam: General: Well-developed, well-nourished HEENT: Normocephalic, sclerae nonicteric Abdomen: Mild epigastric tenderness, no rebound or guarding Extremities: No edema Neuro: Alert and oriented Results - Labs 09/23/18 05:22 09/23/18 05:22 Abnormal Lab Results - Last 24 Hours (Table) 09/22/18 09/22/18 09/22/18 Range/Units 17:25 17:25 17:25 WBC 14.6 H (3.8-10.6) k/uL RBC (4.30-5.90) m/uL Hgb (13.0-17.5) gm/dL Plt Count 715 H (150-450) k/uL Neutrophils # 12.6 H (1.3-7.7) k/uL Lymphocytes # 0.9 L (1.0-4.8) k/uL Monocytes # (0-1.0) k/uL Chloride 65 L* (98-107) mmol/L Carbon Dioxide 51 H* (22-30) mmol/L BUN 111 H* (9-20) mg/dL Creatinine 5.18 H (0.66-1.25) mg/dL Glucose 456 H (74-99) mg/dL POC Glucose (mg/dL) (75-99) mg/dL Total Bilirubin 1.4 H (0.2-1.3) mg/dL Alkaline Phosphatase 132 H (38-126) U/L Troponin I 0.787 H* (0.000-0.034) ng/mL Urine Protein (Negative) Urine Glucose (UA) (Negative) Urine Blood (Negative) Urine Bilirubin (Negative) Hyaline Casts (0-2) /lpf Urine Mucus (None) /hpf 09/22/18 09/22/18 09/22/18 Range/Units 19:45 21:47 22:34 WBC (3.8-10.6) k/uL RBC (4.30-5.90) m/uL Hgb (13.0-17.5) gm/dL Plt Count (150-450) k/uL Neutrophils # (1.3-7.7) k/uL Lymphocytes # (1.0-4.8) k/uL Monocytes # (0-1.0) k/uL Chloride (98-107) mmol/L Carbon Dioxide (22-30) mmol/L BUN (9-20) mg/dL Creatinine (0.66-1.25) mg/dL Glucose (74-99) mg/dL POC Glucose (mg/dL) 230 H (75-99) mg/dL Total Bilirubin (0.2-1.3) mg/dL Alkaline Phosphatase (38-126) U/L Troponin I 0.814 H* (0.000-0.034) ng/mL Urine Protein 1+ H (Negative) Urine Glucose (UA) 1+ H (Negative) Urine Blood Small H (Negative) Urine Bilirubin 1+ H (Negative) Hyaline Casts 32 H (0-2) /lpf Urine Mucus Few H (None) /hpf 09/22/18 09/23/18 09/23/18 Range/Units 23:33 02:07 04:03 WBC (3.8-10.6) k/uL RBC (4.30-5.90) m/uL Hgb (13.0-17.5) gm/dL Plt Count (150-450) k/uL Neutrophils # (1.3-7.7) k/uL Lymphocytes # (1.0-4.8) k/uL Monocytes # (0-1.0) k/uL Chloride (98-107) mmol/L Carbon Dioxide (22-30) mmol/L BUN (9-20) mg/dL Creatinine (0.66-1.25) mg/dL Glucose (74-99) mg/dL POC Glucose (mg/dL) 232 H 179 H 149 H (75-99) mg/dL Total Bilirubin (0.2-1.3) mg/dL Alkaline Phosphatase (38-126) U/L Troponin I (0.000-0.034) ng/mL Urine Protein (Negative) Urine Glucose (UA) (Negative) Urine Blood (Negative) Urine Bilirubin (Negative) Hyaline Casts (0-2) /lpf Urine Mucus (None) /hpf 09/23/18 09/23/18 09/23/18 Range/Units 05:22 05:22 05:22 WBC 20.5 H (3.8-10.6) k/uL RBC 4.12 L (4.30-5.90) m/uL Hgb 12.8 L (13.0-17.5) gm/dL Plt Count 594 H (150-450) k/uL Neutrophils # 17.5 H (1.3-7.7) k/uL Lymphocytes # (1.0-4.8) k/uL Monocytes # 1.4 H (0-1.0) k/uL Chloride 78 L (98-107) mmol/L Carbon Dioxide 49 H* (22-30) mmol/L BUN 114 H* (9-20) mg/dL Creatinine 4.98 H (0.66-1.25) mg/dL Glucose 158 H (74-99) mg/dL POC Glucose (mg/dL) (75-99) mg/dL Total Bilirubin (0.2-1.3) mg/dL Alkaline Phosphatase (38-126) U/L Troponin I 0.825 H* (0.000-0.034) ng/mL Urine Protein (Negative) Urine Glucose (UA) (Negative) Urine Blood (Negative) Urine Bilirubin (Negative) Hyaline Casts (0-2) /lpf Urine Mucus (None) /hpf 09/23/18 09/23/18 09/23/18 Range/Units 06:06 08:22 09:15 WBC (3.8-10.6) k/uL RBC (4.30-5.90) m/uL Hgb (13.0-17.5) gm/dL Plt Count (150-450) k/uL Neutrophils # (1.3-7.7) k/uL Lymphocytes # (1.0-4.8) k/uL Monocytes # (0-1.0) k/uL Chloride (98-107) mmol/L Carbon Dioxide (22-30) mmol/L BUN (9-20) mg/dL Creatinine (0.66-1.25) mg/dL Glucose (74-99) mg/dL POC Glucose (mg/dL) 153 H 125 H 167 H (75-99) mg/dL Total Bilirubin (0.2-1.3) mg/dL Alkaline Phosphatase (38-126) U/L Troponin I (0.000-0.034) ng/mL Urine Protein (Negative) Urine Glucose (UA) (Negative) Urine Blood (Negative) Urine Bilirubin (Negative) Hyaline Casts (0-2) /lpf Urine Mucus (None) /hpf 09/23/18 09/23/18 09/23/18 Range/Units 11:24 14:20 16:05 WBC (3.8-10.6) k/uL RBC (4.30-5.90) m/uL Hgb (13.0-17.5) gm/dL Plt Count (150-450) k/uL Neutrophils # (1.3-7.7) k/uL Lymphocytes # (1.0-4.8) k/uL Monocytes # (0-1.0) k/uL Chloride (98-107) mmol/L Carbon Dioxide (22-30) mmol/L BUN (9-20) mg/dL Creatinine (0.66-1.25) mg/dL Glucose (74-99) mg/dL POC Glucose (mg/dL) 176 H 136 H 115 H (75-99) mg/dL Total Bilirubin (0.2-1.3) mg/dL Alkaline Phosphatase (38-126) U/L Troponin I (0.000-0.034) ng/mL Urine Protein (Negative) Urine Glucose (UA) (Negative) Urine Blood (Negative) Urine Bilirubin (Negative) Hyaline Casts (0-2) /lpf Urine Mucus (None) /hpf Diabetes panel 09/22/18 09/23/18 Range/Units 17:25 05:22 Sodium 141 143 (137-145) mmol/L Potassium 4.4 3.6 (3.5-5.1) mmol/L Chloride 65 L* 78 L (98-107) mmol/L Carbon Dioxide 51 H* 49 H* (22-30) mmol/L BUN 111 H* 114 H* (9-20) mg/dL Creatinine 5.18 H 4.98 H (0.66-1.25) mg/dL Glucose 456 H 158 H (74-99) mg/dL Calcium 9.5 8.7 (8.4-10.2) mg/dL AST 30 32 (17-59) U/L ALT 36 33 (21-72) U/L Alkaline Phosphatase 132 H 104 (38-126) U/L Total Protein 8.2 6.9 (6.3-8.2) g/dL Albumin 4.5 3.8 (3.5-5.0) g/dL Calcium panel 09/22/18 09/23/18 Range/Units 17:25 05:22 Calcium 9.5 8.7 (8.4-10.2) mg/dL Albumin 4.5 3.8 (3.5-5.0) g/dL Pituitary panel 09/22/18 09/23/18 Range/Units 17:25 05:22 Sodium 141 143 (137-145) mmol/L Potassium 4.4 3.6 (3.5-5.1) mmol/L Chloride 65 L* 78 L (98-107) mmol/L Carbon Dioxide 51 H* 49 H* (22-30) mmol/L BUN 111 H* 114 H* (9-20) mg/dL Creatinine 5.18 H 4.98 H (0.66-1.25) mg/dL Glucose 456 H 158 H (74-99) mg/dL Calcium 9.5 8.7 (8.4-10.2) mg/dL Adrenal panel 09/22/18 09/23/18 Range/Units 17:25 05:22 Sodium 141 143 (137-145) mmol/L Potassium 4.4 3.6 (3.5-5.1) mmol/L Chloride 65 L* 78 L (98-107) mmol/L Carbon Dioxide 51 H* 49 H* (22-30) mmol/L BUN 111 H* 114 H* (9-20) mg/dL Creatinine 5.18 H 4.98 H (0.66-1.25) mg/dL Glucose 456 H 158 H (74-99) mg/dL Calcium 9.5 8.7 (8.4-10.2) mg/dL Total Bilirubin 1.4 H 1.2 (0.2-1.3) mg/dL AST 30 32 (17-59) U/L ALT 36 33 (21-72) U/L Alkaline Phosphatase 132 H 104 (38-126) U/L Total Protein 8.2 6.9 (6.3-8.2) g/dL Albumin 4.5 3.8 (3.5-5.0) g/dL Assessment and Plan (1) Nausea & vomiting Narrative/Plan: Patient's family states that the CAT scan performed at [facility] suggested a blister on the duodenum. Certainly duodenal obstruction related to the hematoma is a possibility. We'll have a nasogastric tube placed at this time. Will order upper GI through nasogastric tube for tomorrow morning. Current Visit: Yes Status: Acute Code(s): R11.2 - NAUSEA WITH VOMITING, UNSPECIFIED SNOMED Code(s): 33600527
[2018-09-23 17:06] LABS: Glucose,Whole Blood 109 mg/dL (75-99)
[2018-09-23] MEDS ORDERED: DILTIAZEM DRIP BOLUS FROM BAG 1 MG SOLN IV ONE (18:03)
[2018-09-23] MEDS ORDERED: SODIUM CHLORIDE 0.9% 1,000 ML IV ONE (18:04)
--- NOTE | 2018-09-23 18:37 | CONS ---
CONSULTATION Mr. Olvera is an 83-year-old gentleman who is seen for cardiac evaluation. This patient's medical records reviewed. The patient is admitted to the hospital with complaints of nausea and vomiting for last 4 days. The patient recently was in the emergency room 2 weeks ago with retroperitoneal blood and patient was transferred to [facility]. Conservative treatment was advised. Exact etiology of the retroperitoneal bleed was unclear. They thought that it may be due to the cough and patient was discharged home. The patient was seen by PCP and he continued to have episodes of nausea and vomiting in spite of being on Zofran and patient was brought to the emergency room. The patient has a history of diabetes. There is no history of hypertension. There is no past history of irregular heartbeat. The patient denies any history of angina. Denies any history of myocardial infarction. PAST MEDICAL HISTORY: Includes history of joint replacement orthopedic surgery, bilateral knee replacement, bilateral carpal tunnel, hyperlipidemia, smoking history, light tobacco smoker. HOME MEDICATIONS: Home medications included aspirin 81 mg, EpiPen p.r.n., finasteride 5 mg daily, metformin and cephalexin. REVIEW OF THE SYSTEM: Otherwise unremarkable. PHYSICAL EXAMINATION: Physical examination in the emergency room revealed the patient's vital signs were stable. Patient's blood pressure is 131/69 mmHg, oxygen saturation is 92%. Heart rate is 94. HEENT examination is negative. Neck is supple. There is no increase in jugular venous pressure. Both the carotid pulses are felt. There is no bruit. Chest is symmetrical. Heart the PMI is not felt. First and second heart sounds are heard. Lungs are clinically clear to auscultation and percussion. Abdomen is soft. Bowel sounds are heard. Extremities: Peripheral pulses are 1+. [place] [address]. Electrolytes shows the patient has hypochloremic metabolic alkalosis. Patient's CO2 is 49, BUN is 114, creatinine is 4.9. The patient's blood sugar is elevated. Patient's 2 troponin is 0.814 and 0.825. FINAL IMPRESSION: This patient is admitted with a persistent nausea and vomiting. The patient did not complain of any chest pain. EKG does not show any acute ischemic changes. Patient had an episode of paroxysmal atrial flutter which converted to the normal sinus rhythm. The patient's echocardiogram reveals a normal left ventricular systolic functions. The patient's 2 sets of troponin are almost identical and it is not suggestive of acute coronary syndrome. We would recommend to continue to observe the patient. We will start the patient on flecainide 50 mg b.i.d. to prevent the recurrent episodes of atrial flutter. Continue the hydration to treat his failure. Thank you for this consultation. MAIKEL / PURNIMA: [id number] /
[2018-09-23] MEDS: DILTIAZEM 125 MG in SODIUM CHLORIDE 0.9% 100 ML IV SCH (18:54)
[2018-09-23 20:12] LABS: Glucose,Whole Blood 126 mg/dL (75-99)
[2018-09-23] MEDS: FLECAINIDE 50 MG TAB PO SCH (21:33)
[2018-09-23 22:20] LABS: Glucose,Whole Blood 133 mg/dL (75-99)
[2018-09-24 00:03] LABS: Glucose,Whole Blood 150 mg/dL (75-99)
[2018-09-24 02:12] LABS: Glucose,Whole Blood 151 mg/dL (75-99)
[2018-09-24 04:02] LABS: Glucose,Whole Blood 153 mg/dL (75-99)
[2018-09-24 06:17] LABS: Glucose,Whole Blood 157 mg/dL (75-99)
[2018-09-24] MEDS: SODIUM CHLORIDE 0.9% 1,000 ML IV SCH ×3 (06:23→20:09)
[2018-09-24] MEDS: DILTIAZEM 125 MG in SODIUM CHLORIDE 0.9% 100 ML IV SCH ×2 (06:24→11:50)
[2018-09-24 07:38] LABS: Basophils % (A) 0 %; Eosinophils % (A) 0 %; HCT 35.4 % (39.0-53.0); HGB 11.3 gm/dL (13.0-17.5); Hypochromasia Slight; Lymphocytes % (A) 8 %; MCH 31.8 pg (25.0-35.0); MCV 99.5 fL (80.0-100.0); Monocytes # (A) 0.7 k/uL (0-1.0); Monocytes % (A) 6 %; Neutrophils # (A) 10.8 k/uL (1.3-7.7); Neutrophils % (A) 85 %; Platelet Count 407 k/uL (150-450); RBC 3.55 m/uL (4.30-5.90); RDW 13.7 % (11.5-15.5); WBC 12.7 k/uL (3.8-10.6)
[2018-09-24 07:53] LABS: Albumin 3.1 g/dL (3.5-5.0); Calcium 8.3 mg/dL (8.4-10.2); Potassium 3.2 mmol/L (3.5-5.1); Total Bilirubin 1.2 mg/dL (0.2-1.3); Total Protein 5.5 g/dL (6.3-8.2)
--- NOTE | 2018-09-24 08:09 | XR ---
EXAMINATION TYPE: XR chest 1V DATE OF EXAM: 09/24/2018 COMPARISON: 09/22/2018 HISTORY: NG tube placement TECHNIQUE: Single frontal view of the chest is obtained. FINDINGS: Left basilar consolidation and small effusion. NG tube seen with the end of the catheter c oiled in left upper quadrant likely in the gastric fundus. Diffuse osteopenia noted there is arthropa thy of the shoulders. Hypertrophic change of the vertebral column. Atherosclerotic change of aorta. IMPRESSION: 1. Left basilar infiltrate. 2. Tip of the NG tube left upper quadrant likely within the gastric fundus.
[2018-09-24] MEDS ORDERED: POTASSIUM CHLORIDE ER 20 MEQ TAB.ER PO STA (08:44)
--- NOTE | 2018-09-24 08:49 | P.PN ---
Subjective Patient is seen in follow-up for acute kidney injury and metabolic alkalosis. Renal function is improving with creatinine down to 4.3 today. Bicarb level is also down to 38. Patient had persistent vomiting for last several days. NG tube was placed yesterday. He's had over 4 L of output from the NG tube last night. He is maintained on normal saline at 1 50 mL an hour. Urine output was 550 mL in the last 24 hours or so. He is awake and alert. Vital signs are stable. General: The patient appeared well nourished and normally developed. NG tube noted. HEENT: Head exam is unremarkable. Neck is without jugular venous distension. LUNGS: Lungs are clear to auscultation and percussion. Breath sounds decreased. HEART: Rate and Rhythm are regular. First and second heart sounds normal. No murmurs, rubs or gallops. ABDOMEN: Abdominal exam reveals normal bowel sounds. Non-tender and non- distended. No evidence of peritonitis. EXTREMITITES: No clubbing, cyanosis, or edema. Objective - Vital Signs Vital signs: Vital Signs Temp 97.6 F 09/24/18 04:00 Pulse 73 09/24/18 04:00 Resp 17 09/24/18 04:00 BP 117/59 09/24/18 04:00 Pulse Ox 94 L 09/24/18 04:00 Intake & Output 09/23/18 09/24/18 09/24/18 18:59 06:59 18:59 Intake Total 5.957 2083.913 Output Total 1999 550 Balance -2304.035 7404.913 Weight 72 kg Intake: Intake, IV Titration 5.957 1683.913 Amount Diltiazem 125 mg In 23.167 Sodium Chloride 0.9% 100 ml @ 10 MG/HR 10 mls/hr IV .[id number] DUSTY Rx#: [id number] Insulin Regular 100 unit 5.957 10.746 In Sodium Chloride 0.9% 100 ml @ Titrate IV .Q0M DUSTY Rx#:[id number] Sodium Chloride 0.9% 1, 1650 000 ml @ 150 mls/hr IV . Q6H40M DUSTY Rx#:[id number] Oral 400 Output: Gastric Drainage 1999 Urine 550 Other: Voiding Method Indwelling Catheter Indwelling Catheter - Labs CBC & Chem 7: 09/24/18 06:02 03/01/19 06:02 Labs: Abnormal Lab Results - Last 24 Hours (Table) 09/23/18 09/23/18 09/23/18 Range/Units 09:15 11:24 14:20 WBC (3.8-10.6) k/uL RBC (4.30-5.90) m/uL Hgb (13.0-17.5) gm/dL Hct (39.0-53.0) % Neutrophils # (1.3-7.7) k/uL Potassium (3.5-5.1) mmol/L Chloride (98-107) mmol/L Carbon Dioxide (22-30) mmol/L BUN (9-20) mg/dL Creatinine (0.66-1.25) mg/dL Glucose (74-99) mg/dL POC Glucose (mg/dL) 167 H 176 H 136 H (75-99) mg/dL Calcium (8.4-10.2) mg/dL Total Protein (6.3-8.2) g/dL Albumin (3.5-5.0) g/dL 09/23/18 09/23/18 09/23/18 Range/Units 16:05 17:01 20:00 WBC (3.8-10.6) k/uL RBC (4.30-5.90) m/uL Hgb (13.0-17.5) gm/dL Hct (39.0-53.0) % Neutrophils # (1.3-7.7) k/uL Potassium (3.5-5.1) mmol/L Chloride (98-107) mmol/L Carbon Dioxide (22-30) mmol/L BUN (9-20) mg/dL Creatinine (0.66-1.25) mg/dL Glucose (74-99) mg/dL POC Glucose (mg/dL) 115 H 109 H 126 H (75-99) mg/dL Calcium (8.4-10.2) mg/dL Total Protein (6.3-8.2) g/dL Albumin (3.5-5.0) g/dL 09/23/18 09/24/18 09/24/18 Range/Units 22:08 00:01 02:11 WBC (3.8-10.6) k/uL RBC (4.30-5.90) m/uL Hgb (13.0-17.5) gm/dL Hct (39.0-53.0) % Neutrophils # (1.3-7.7) k/uL Potassium (3.5-5.1) mmol/L Chloride (98-107) mmol/L Carbon Dioxide (22-30) mmol/L BUN (9-20) mg/dL Creatinine (0.66-1.25) mg/dL Glucose (74-99) mg/dL POC Glucose (mg/dL) 133 H 150 H 151 H (75-99) mg/dL Calcium (8.4-10.2) mg/dL Total Protein (6.3-8.2) g/dL Albumin (3.5-5.0) g/dL 09/24/18 09/24/18 09/24/18 Range/Units 03:50 06:02 06:02 WBC 12.7 H (3.8-10.6) k/uL RBC 3.55 L (4.30-5.90) m/uL Hgb 11.3 L (13.0-17.5) gm/dL Hct 35.4 L (39.0-53.0) % Neutrophils # 10.8 H (1.3-7.7) k/uL Potassium 3.2 L (3.5-5.1) mmol/L Chloride 90 L (98-107) mmol/L Carbon Dioxide 38 H (22-30) mmol/L BUN 104 H* (9-20) mg/dL Creatinine 4.38 H (0.66-1.25) mg/dL Glucose 165 H (74-99) mg/dL POC Glucose (mg/dL) 153 H (75-99) mg/dL Calcium 8.3 L (8.4-10.2) mg/dL Total Protein 5.5 L (6.3-8.2) g/dL Albumin 3.1 L (3.5-5.0) g/dL 09/24/18 Range/Units 06:06 WBC (3.8-10.6) k/uL RBC (4.30-5.90) m/uL Hgb (13.0-17.5) gm/dL Hct (39.0-53.0) % Neutrophils # (1.3-7.7) k/uL Potassium (3.5-5.1) mmol/L Chloride (98-107) mmol/L Carbon Dioxide (22-30) mmol/L BUN (9-20) mg/dL Creatinine (0.66-1.25) mg/dL Glucose (74-99) mg/dL POC Glucose (mg/dL) 157 H (75-99) mg/dL Calcium (8.4-10.2) mg/dL Total Protein (6.3-8.2) g/dL Albumin (3.5-5.0) g/dL Assessment and Plan Plan: Assessment: 1. Acute kidney injury secondary to ATN secondary to intravascular volume depletion from vomiting. Creatinine 5.1 and on admission and is 4.38 today. Abdominal ultrasound revealed no evidence of hydronephrosis. Baseline creatinine near 1. 2. Metabolic alkalosis secondary to hydrogen ion losses from vomiting. The patient is also hypochloremic and hypokalemic which will maintain alkalosis by impairing bicarb secretion. Better. 3. Hypokalemia from poor oral intake. 4. Diabetes mellitus. 5. Recent retroperitoneal hemorrhage. Hemoglobin is stable. 6. Nausea and vomiting with concern for blister in duodenum. Surgery following - scheduled for upper GI today. Plan: Maintain normal saline at 150 mL an hour. Replace potassium. 60 mEq of potassium chloride today. Avoid nephrotoxins. Repeat electrolytes in the morning.
[2018-09-24] MEDS: FLECAINIDE 50 MG TAB PO SCH ×2 (10:34→19:58)
[2018-09-24] MEDS: INSULIN ASPART (NovoLOG) 100 UNIT/ML VIAL SQ SCH ×5 (10:34→21:18)
[2018-09-24 10:57] LABS: Glucose,Whole Blood 157 mg/dL (75-99)
[2018-09-24] MEDS ORDERED: EPINEPHRINE IM PRN (11:04)
[2018-09-24] MEDS: POTASSIUM CHLORIDE 10 MEQ in WATER FOR INJECTION 1 100ML.BAG IVPB SCH ×6 (11:50→17:40)
[2018-09-24] MEDS: PANTOPRAZOLE 40 MG/10 ML VIAL IVP SCH ×2 (11:52→20:14)
[2018-09-24 11:56] LABS: Glucose,Whole Blood 174 mg/dL (75-99)
--- NOTE | 2018-09-24 12:00 | P.PN ---
Subjective 83-year-old admitted for aggressive and nausea vomiting probably partial small bowel obstruction or peptic ulcer disease patient is an NG tube with the biliary drainage patient will undergo upper GI endoscopy today for diagnosis. Patient is still draining significant amount of bilious fluid patient has nausea vomiting went into renal failure because of severe nausea vomiting patient creatinine is around 4.5 days a month 50 mL of normal saline patient has prerenal azotemia still has some urine output. Patient also has atrial flutter because of severe intravascular volume depletion for which patient is receiving IV fluids patient was hypotensive as well from intravascularly and patient nausea vomiting. Patient is presently on Cardizem as well cardiology evaluated the patient patient will not been on anticoagulation because of his recent retroperitoneal bleed. Constitutional: Denied any fatigue denied any fever. Cardio vascular: denied any chest pain, palpitations Gastrointestinal denied any nausea vomiting Pulmonary: Denied any shortness of breath cough Neurologic denied any new focal deficits All inpatient medications were reviewed and appropriate changes in these medications as dictated in the interval history and assessment and plan. Objective - Vital Signs Vital signs: Vital Signs Temp 99.2 F 09/24/18 08:00 Pulse 79 09/24/18 08:00 Resp 18 09/24/18 08:00 BP 123/62 09/24/18 08:00 Pulse Ox 96 09/24/18 08:00 Intake & Output 09/23/18 09/24/18 09/24/18 18:59 06:59 18:59 Intake Total 5.957 2083.913 Output Total 1999 550 Balance -8235.918 5484.913 Weight 72 kg Intake: Intake, IV Titration 5.957 1683.913 Amount Diltiazem 125 mg In 23.167 Sodium Chloride 0.9% 100 ml @ 10 MG/HR 10 mls/hr IV .[id number] DUSTY Rx#: [id number] Insulin Regular 100 unit 5.957 10.746 In Sodium Chloride 0.9% 100 ml @ Titrate IV .Q0M DUSTY Rx#:[id number] Sodium Chloride 0.9% 1, 1650 000 ml @ 150 mls/hr IV . Q6H40M DUSTY Rx#:[id number] Oral 400 Output: Gastric Drainage 1999 Urine 550 Other: Voiding Method Indwelling Catheter Indwelling Catheter Indwelling Catheter - Exam PHYSICAL EXAMINATION: GENERAL: The patient is alert and oriented x3, not in any acute distress. Well developed, well nourished. HEENT: Pupils are round and equally reacting to light. EOMI. No scleral icterus. No conjunctival pallor. Normocephalic, atraumatic. No pharyngeal erythema. No thyromegaly. CARDIOVASCULAR: S1 and S2 present. No murmurs, rubs, or gallops. PULMONARY: Chest is clear to auscultation, no wheezing or crackles. ABDOMEN: Soft, NG tube in place no tenderness biliary drainage from the NG tube sluggish bowel sounds. MUSCULOSKELETAL: No joint swelling or deformity. EXTREMITIES: No cyanosis, clubbing, or pedal edema. NEUROLOGICAL: Gross neurological examination did not reveal any focal deficits. SKIN: No rashes. - Labs CBC & Chem 7: 09/24/18 06:02 09/24/18 06:02 Labs: Abnormal Lab Results - Last 24 Hours (Table) 09/23/18 09/23/18 09/23/18 Range/Units 14:20 16:05 17:01 WBC (3.8-10.6) k/uL RBC (4.30-5.90) m/uL Hgb (13.0-17.5) gm/dL Hct (39.0-53.0) % Neutrophils # (1.3-7.7) k/uL Potassium (3.5-5.1) mmol/L Chloride (98-107) mmol/L Carbon Dioxide (22-30) mmol/L BUN (9-20) mg/dL Creatinine (0.66-1.25) mg/dL Glucose (74-99) mg/dL POC Glucose (mg/dL) 136 H 115 H 109 H (75-99) mg/dL Calcium (8.4-10.2) mg/dL Total Protein (6.3-8.2) g/dL Albumin (3.5-5.0) g/dL 09/23/18 09/23/18 09/24/18 Range/Units 20:00 22:08 00:01 WBC (3.8-10.6) k/uL RBC (4.30-5.90) m/uL Hgb (13.0-17.5) gm/dL Hct (39.0-53.0) % Neutrophils # (1.3-7.7) k/uL Potassium (3.5-5.1) mmol/L Chloride (98-107) mmol/L Carbon Dioxide (22-30) mmol/L BUN (9-20) mg/dL Creatinine (0.66-1.25) mg/dL Glucose (74-99) mg/dL POC Glucose (mg/dL) 126 H 133 H 150 H (75-99) mg/dL Calcium (8.4-10.2) mg/dL Total Protein (6.3-8.2) g/dL Albumin (3.5-5.0) g/dL 09/24/18 09/24/18 09/24/18 Range/Units 02:11 03:50 06:02 WBC 12.7 H (3.8-10.6) k/uL RBC 3.55 L (4.30-5.90) m/uL Hgb 11.3 L (13.0-17.5) gm/dL Hct 35.4 L (39.0-53.0) % Neutrophils # 10.8 H (1.3-7.7) k/uL Potassium (3.5-5.1) mmol/L Chloride (98-107) mmol/L Carbon Dioxide (22-30) mmol/L BUN (9-20) mg/dL Creatinine (0.66-1.25) mg/dL Glucose (74-99) mg/dL POC Glucose (mg/dL) 151 H 153 H (75-99) mg/dL Calcium (8.4-10.2) mg/dL Total Protein (6.3-8.2) g/dL Albumin (3.5-5.0) g/dL 09/24/18 09/24/18 09/24/18 Range/Units 06:02 06:06 10:37 WBC (3.8-10.6) k/uL RBC (4.30-5.90) m/uL Hgb (13.0-17.5) gm/dL Hct (39.0-53.0) % Neutrophils # (1.3-7.7) k/uL Potassium 3.2 L (3.5-5.1) mmol/L Chloride 90 L (98-107) mmol/L Carbon Dioxide 38 H (22-30) mmol/L BUN 104 H* (9-20) mg/dL Creatinine 4.38 H (0.66-1.25) mg/dL Glucose 165 H (74-99) mg/dL POC Glucose (mg/dL) 157 H 157 H (75-99) mg/dL Calcium 8.3 L (8.4-10.2) mg/dL Total Protein 5.5 L (6.3-8.2) g/dL Albumin 3.1 L (3.5-5.0) g/dL Assessment and Plan Plan: nausea vomiting: Secondary to peptic ulcer disease are partial small bowel obstruction patient will undergo upper GI endoscopy continue with NG tube drainage patient will remain nothing by mouth, gastric decompression and patient is on Protonix -Acute renal failure secondary to renal azotemia along with secondary acute tubular necrosis creatinine went up to 5.1 baseline around 0.7. Continue with IV fluids and nephrotoxic agents were discontinued -Hypotension: Secondary to hypovolemia although patient is not in shock at this time. Continue with IV fluid resuscitation at this point of time patient will not require any antibiotics -Type 2 diabetes mellitus -Recent retroperitoneal hematoma -Atrial flutter: Cardiology evaluated the patient management as mentioned above
--- NOTE | 2018-09-24 12:27 | FL ---
EXAMINATION TYPE: FL UGI DATE OF EXAM: 09/24/2018 COMPARISON: None HISTORY: Retroperitoneal hemorrhage, obstruction TECHNIQUE: A single contrast UGI study is performed. Study is performed with Omnipaque 370 FINDINGS: Oral contrast was administered. This passed into the esophagus. Patient cooperative with swallowing. Note is made of the nasogastric tube curled within the stomach with the tip in the fundus of stomach Single contrast imaging to the stomach appears normal. Patient was placed on his right lateral decubi tus position. There is delayed emptying through the the second portion of the duodenum. Third portion of the duodenum is very poorly visualized. Best imaging is fluoroscopy image 15. Ligament of Treitz appears to be in the normal position. Focal stenosis is not identified. However, there is a marked he sitancy passing to the second and third portions duodenum. Overhead radiographs were obtained. Contrast within the jejunum is evident. Fluoroscopy time: 1 minute 7 seconds Images: 17 IMPRESSIONS: 1. There is marked hesitancy passing through the second and third portions of the duodenum. Focal evelin nosis is not identified.
[2018-09-24] MEDS: PANTOPRAZOLE 40 MG/10 ML VIAL IV SCH (12:30)
[2018-09-24 16:48] LABS: Glucose,Whole Blood 134 mg/dL (75-99)
[2018-09-24] MEDS ORDERED: IOPAMIDOL-300 CONTRAST 30 ML VIAL (ORAL USE) PO PRN (17:19)
--- NOTE | 2018-09-24 17:22 | P.PN ---
Subjective Progress Note Date: 09/24/18 Principal diagnosis: Intractable vomiting Patient's white blood cell count is improved today at 12.7. Nasogastric tube was put out a large volume of bilious fluid. Today's upper GI shows marked hesitancy with passage through second and third portion of duodenum. No pain. He is hungry. Objective - Vital Signs Vital signs: Vital Signs Temp 97.9 F 09/24/18 12:00 Pulse 81 09/24/18 16:00 Resp 18 09/24/18 16:00 BP 121/76 09/24/18 16:00 Pulse Ox 93 L 09/24/18 16:00 Intake & Output 09/23/18 09/24/18 09/24/18 18:59 06:59 18:59 Intake Total 5.957 2083.913 7.308 Output Total 1999 550 Balance -9425.023 7388.913 7.308 Weight 72 kg Intake: Intake, IV Titration 5.957 1683.913 7.308 Amount Diltiazem 125 mg In 23.167 7.308 Sodium Chloride 0.9% 100 ml @ 10 MG/HR 10 mls/hr IV .[id number] [facility] Rx#: [id number] Insulin Regular 100 unit 5.957 10.746 In Sodium Chloride 0.9% 100 ml @ Titrate IV .Q0M [facility] Rx#:[id number] Sodium Chloride 0.9% 1, 1650 000 ml @ 150 mls/hr IV . Q6H40M [facility] Rx#:[id number] Oral 400 0 Output: Gastric Drainage 2000 Urine 550 Other: Voiding Method Indwelling Catheter Indwelling Catheter Indwelling Catheter - Exam Abdomen: Soft, nontender, nondistended - Labs CBC & Chem 7: 09/24/18 06:02 09/24/18 06:02 Labs: Abnormal Lab Results - Last 24 Hours (Table) 09/23/18 09/23/18 09/24/18 Range/Units 20:00 22:08 00:01 WBC (3.8-10.6) k/uL RBC (4.30-5.90) m/uL Hgb (13.0-17.5) gm/dL Hct (39.0-53.0) % Neutrophils # (1.3-7.7) k/uL Potassium (3.5-5.1) mmol/L Chloride (98-107) mmol/L Carbon Dioxide (22-30) mmol/L BUN (9-20) mg/dL Creatinine (0.66-1.25) mg/dL Glucose (74-99) mg/dL POC Glucose (mg/dL) 126 H 133 H 150 H (75-99) mg/dL Calcium (8.4-10.2) mg/dL Total Protein (6.3-8.2) g/dL Albumin (3.5-5.0) g/dL 09/24/18 09/24/18 09/24/18 Range/Units 02:11 03:50 06:02 WBC 12.7 H (3.8-10.6) k/uL RBC 3.55 L (4.30-5.90) m/uL Hgb 11.3 L (13.0-17.5) gm/dL Hct 35.4 L (39.0-53.0) % Neutrophils # 10.8 H (1.3-7.7) k/uL Potassium (3.5-5.1) mmol/L Chloride (98-107) mmol/L Carbon Dioxide (22-30) mmol/L BUN (9-20) mg/dL Creatinine (0.66-1.25) mg/dL Glucose (74-99) mg/dL POC Glucose (mg/dL) 151 H 153 H (75-99) mg/dL Calcium (8.4-10.2) mg/dL Total Protein (6.3-8.2) g/dL Albumin (3.5-5.0) g/dL 09/24/18 09/24/18 09/24/18 Range/Units 06:02 06:06 10:37 WBC (3.8-10.6) k/uL RBC (4.30-5.90) m/uL Hgb (13.0-17.5) gm/dL Hct (39.0-53.0) % Neutrophils # (1.3-7.7) k/uL Potassium 3.2 L (3.5-5.1) mmol/L Chloride 90 L (98-107) mmol/L Carbon Dioxide 38 H (22-30) mmol/L BUN 104 H* (9-20) mg/dL Creatinine 4.38 H (0.66-1.25) mg/dL Glucose 165 H (74-99) mg/dL POC Glucose (mg/dL) 157 H 157 H (75-99) mg/dL Calcium 8.3 L (8.4-10.2) mg/dL Total Protein 5.5 L (6.3-8.2) g/dL Albumin 3.1 L (3.5-5.0) g/dL 09/24/18 09/24/18 Range/Units 11:53 16:42 WBC (3.8-10.6) k/uL RBC (4.30-5.90) m/uL Hgb (13.0-17.5) gm/dL Hct (39.0-53.0) % Neutrophils # (1.3-7.7) k/uL Potassium (3.5-5.1) mmol/L Chloride (98-107) mmol/L Carbon Dioxide (22-30) mmol/L BUN (9-20) mg/dL Creatinine (0.66-1.25) mg/dL Glucose (74-99) mg/dL POC Glucose (mg/dL) 174 H 134 H (75-99) mg/dL Calcium (8.4-10.2) mg/dL Total Protein (6.3-8.2) g/dL Albumin (3.5-5.0) g/dL Assessment and Plan (1) Nausea & vomiting Narrative/Plan: Patient with evidence of duodenal obstruction on recent upper GI. Likely related to the patient's retroperitoneal hematoma and possibly even a duodenal hematoma. We'll order repeat CAT scan tomorrow without IV contrast. Keep nasogastric tube to suction. May require TPN. Current Visit: Yes Status: Acute Code(s): R11.2 - NAUSEA WITH VOMITING, UNSPECIFIED SNOMED Code(s): 42789657
[2018-09-24] MEDS: FINASTERIDE 5 MG TAB PO SCH (19:58)
[2018-09-24] MEDS: ATORVASTATIN 10 MG TAB PO SCH (19:58)
[2018-09-24 20:52] LABS: Glucose,Whole Blood 124 mg/dL (75-99)
[2018-09-24] MEDS ORDERED: LORazepam 2 MG/ML INJ IV PRN (21:32)
--- NOTE | 2018-09-24 21:52 | PN ---
PROGRESS NOTE This patient is admitted with nausea and vomiting and patient is being treated for possible small-bowel obstruction. Patient has a history of recent retroperitoneal hematoma. The patient had an episode of atrial flutter yesterday which lasted for a short time and the patient converted. The patient is currently getting flecainide 50 mg twice a day. Patient is not being anticoagulated because of the history of GI bleeding. The patient's has evidence of acute renal failure with a creatinine of 4.38 and BUN of 104. The patient is stable cardiac donald. We will continue the current medications. MMODL / IJN: [id number] /
[2018-09-25] MEDS: SODIUM CHLORIDE 0.9% 1,000 ML IV SCH ×2 (03:17→14:31)
[2018-09-25] MEDS: DILTIAZEM 125 MG in SODIUM CHLORIDE 0.9% 100 ML IV SCH ×3 (05:39→20:56)
[2018-09-25] MEDS: INSULIN ASPART (NovoLOG) 100 UNIT/ML VIAL SQ SCH ×4 (05:48→20:56)
[2018-09-25 05:49] LABS: Glucose,Whole Blood 146 mg/dL (75-99)
[2018-09-25 06:31] LABS: Basophils % (A) 0 %; Eosinophils # (A) 0.2 k/uL (0-0.7); Eosinophils % (A) 2 %; HCT 34.2 % (39.0-53.0); HGB 10.8 gm/dL (13.0-17.5); Hypochromasia Slight; Lymphocytes # (A) 0.9 k/uL (1.0-4.8); Lymphocytes % (A) 9 %; MCHC 31.7 g/dL (31.0-37.0); MCV 100.9 fL (80.0-100.0); Macrocytosis Slight; Mean Platelet Volume 7.2; Monocytes # (A) 0.6 k/uL (0-1.0); Monocytes % (A) 6 %; Neutrophils # (A) 8.4 k/uL (1.3-7.7); Neutrophils % (A) 82 %; Platelet Count 355 k/uL (150-450); RBC 3.39 m/uL (4.30-5.90); RDW 13.7 % (11.5-15.5); WBC 10.3 k/uL (3.8-10.6)
[2018-09-25 06:48] LABS: Magnesium 2.2 mg/dL (1.6-2.3); Potassium 3.3 mmol/L (3.5-5.1); Total Bilirubin 1.2 mg/dL (0.2-1.3); Total Protein 5.6 g/dL (6.3-8.2)
--- NOTE | 2018-09-25 09:24 | CT ---
EXAMINATION TYPE: CT abdomen pelvis wo con DATE OF EXAM: 09/25/2018 HISTORY: ARF, Dehydration, nausea, vomiting and HX of abd. Hematoma with duodenal obstruction CT DLP: 500.4 mGycm. Automated Exposure Control for Dose Reduction was Utilized. TECHNIQUE: CT scan of the abdomen and pelvis is performed with oral but without IV contrast. COMPARISON: CT chest abdomen and pelvis September 11, 2018. Upper GI study from yesterday. FINDINGS: Within the limitations of a non-contrast study, the following observations are made. LUNG BASES: There are new tiny bilateral pleural effusions and associated compressive atelectasis. Th ere is redemonstration of coronary artery calcification in the RCA distribution LIVER/GB: Liver remains heterogeneously hypodense relative to spleen consistent with diffuse fatty in filtration. Gallbladder is dilated with distended margins on current study. No hepatic or extra hepat ic biliary dilatation is seen.. PANCREAS: No significant abnormality is seen. SPLEEN: No significant abnormality is seen. ADRENALS: Adrenal glands seen better on current study within normal limits. KIDNEYS: There is focal cortical scarring mid pole level left kidney with better visualization of 2 m m nonobstructing calculus pole level axial image 29 and coronal image 59 mild perinephric fat strandi ng is present bilaterally, nonspecific finding not significantly changed from prior. Mustafa catheter i s now in place in decompressed bladder. BOWEL: There is new nasogastric tube terminating in gastric fundus. Oral contrast is seen in the stom ach and antrum with some contrast extending to proximal jejunal loops in the left upper and midabdome n. Contrast from recent upper GI study has progressed to distal small bowel loops and proximal coloni c loops in the right abdomen. Some diverticula are redemonstrated in the left and sigmoid colon. Ther e is persistent right mid abdominal hematoma centered near junction of the second and third portion o f duodenum measuring roughly 4.8 x 9.3 cm transversely by 8.1 cm craniocaudal dimension on axial imag e 36 and coronal image 44. It is smaller in size and less dense versus prior CT. There is persistent poor contrast opacification of the adjacent duodenal sweep seen best near coronal images 30 through 3 7. GENITAL ORGANS: Enlarged prostate gland redemonstrated. LYMPH NODES: No greater than 1cm abdominal or pelvic lymph nodes are appreciated. OSSEOUS STRUCTURES: No significant abnormality is seen. OTHER: No significant additional abnormality is seen. IMPRESSION: 1. Persistent but improving paraduodenal hematoma with local mass effect. No complete bowel obstructi on is present.
[2018-09-25] MEDS: FLECAINIDE 50 MG TAB PO SCH ×2 (09:40→20:51)
--- NOTE | 2018-09-25 09:47 | P.PN ---
Subjective Progress Note Date: 09/25/18 Principal diagnosis: Intractable vomiting Patient feels well today. White blood cell count normal. Hemoglobin stable. Today's CAT scan shows improvement in the retroperitoneal hematoma. Mass effect on the duodenum is appreciated and appears to be the etiology for the patient's intractable nausea and vomiting. Objective - Vital Signs Vital signs: Vital Signs Temp 98.0 F 09/25/18 04:00 Pulse 62 09/25/18 04:00 Resp 16 09/25/18 04:00 BP 116/55 09/25/18 04:00 Pulse Ox 95 09/25/18 08:22 Intake & Output 09/24/18 09/25/18 09/25/18 18:59 06:59 18:59 Intake Total 107.308 10.258 Output Total 500 1150 Balance -392.692 -1150 10.258 Weight 73 kg Intake: Intake, IV Titration 7.308 10.258 Amount Diltiazem 125 mg In 7.308 10.258 Sodium Chloride 0.9% 100 ml @ 10 MG/HR 10 mls/hr IV .[id number] [facility] Rx#: [id number] Oral 100 Output: Gastric Drainage 550 Urine 500 600 Other: Voiding Method Indwelling Catheter Indwelling Catheter - Exam Abdomen: Soft, nondistended, nontender - Labs CBC & Chem 7: 09/25/18 05:37 09/25/18 05:37 Labs: Abnormal Lab Results - Last 24 Hours (Table) 09/24/18 09/24/18 09/24/18 Range/Units 10:37 11:53 16:42 RBC (4.30-5.90) m/uL Hgb (13.0-17.5) gm/dL Hct (39.0-53.0) % MCV (80.0-100.0) fL Neutrophils # (1.3-7.7) k/uL Lymphocytes # (1.0-4.8) k/uL Sodium (137-145) mmol/L Potassium (3.5-5.1) mmol/L Carbon Dioxide (22-30) mmol/L BUN (9-20) mg/dL Creatinine (0.66-1.25) mg/dL Glucose (74-99) mg/dL POC Glucose (mg/dL) 157 H 174 H 134 H (75-99) mg/dL Total Protein (6.3-8.2) g/dL Albumin (3.5-5.0) g/dL 09/24/18 09/25/18 09/25/18 Range/Units 20:51 05:37 05:37 RBC 3.39 L (4.30-5.90) m/uL Hgb 10.8 L (13.0-17.5) gm/dL Hct 34.2 L (39.0-53.0) % MCV 100.9 H (80.0-100.0) fL Neutrophils # 8.4 H (1.3-7.7) k/uL Lymphocytes # 0.9 L (1.0-4.8) k/uL Sodium 147 H (137-145) mmol/L Potassium 3.3 L (3.5-5.1) mmol/L Carbon Dioxide 35 H (22-30) mmol/L BUN 92 H (9-20) mg/dL Creatinine 2.99 H (0.66-1.25) mg/dL Glucose 141 H (74-99) mg/dL POC Glucose (mg/dL) 124 H (75-99) mg/dL Total Protein 5.6 L (6.3-8.2) g/dL Albumin 3.0 L (3.5-5.0) g/dL 09/25/18 Range/Units 05:47 RBC (4.30-5.90) m/uL Hgb (13.0-17.5) gm/dL Hct (39.0-53.0) % MCV (80.0-100.0) fL Neutrophils # (1.3-7.7) k/uL Lymphocytes # (1.0-4.8) k/uL Sodium (137-145) mmol/L Potassium (3.5-5.1) mmol/L Carbon Dioxide (22-30) mmol/L BUN (9-20) mg/dL Creatinine (0.66-1.25) mg/dL Glucose (74-99) mg/dL POC Glucose (mg/dL) 146 H (75-99) mg/dL Total Protein (6.3-8.2) g/dL Albumin (3.5-5.0) g/dL Assessment and Plan (1) Nausea & vomiting Narrative/Plan: Continue nasogastric tube to suction. We'll plan PICC line on Thursday for TPN. Patient may require short-term TPN as outpatient while we await resolution of the patient's duodenal obstruction. Current Visit: Yes Status: Acute Code(s): R11.2 - NAUSEA WITH VOMITING, UNSPECIFIED SNOMED Code(s): 80041761
[2018-09-25] MEDS ORDERED: Potassium Replacement Protocol 1 EACH MISC MISCELLANE PRN (11:19)
[2018-09-25 11:55] LABS: Glucose,Whole Blood 143 mg/dL (75-99)
[2018-09-25] MEDS: POTASSIUM CHLORIDE 10 MEQ in WATER FOR INJECTION 1 100ML.BAG IVPB SCH ×4 (12:19→15:37)
--- NOTE | 2018-09-25 12:32 | P.PN ---
Subjective Progress Note Date: 09/25/18 Seen and examined for the follow-up of acute kidney injury and metabolic alkalosis. Objective - Vital Signs Vital signs: Vital Signs Temp 98.0 F 09/25/18 04:00 Pulse 62 09/25/18 04:00 Resp 16 09/25/18 04:00 BP 116/55 09/25/18 04:00 Pulse Ox 95 09/25/18 08:22 Intake & Output 09/24/18 09/25/18 09/25/18 18:59 06:59 18:59 Intake Total 107.308 10.258 Output Total 500 1150 Balance -392.692 -1150 10.258 Weight 73 kg Intake: Intake, IV Titration 7.308 10.258 Amount Diltiazem 125 mg In 7.308 10.258 Sodium Chloride 0.9% 100 ml @ 10 MG/HR 10 mls/hr IV .[id number] [facility] Rx#: [id number] Oral 100 Output: Gastric Drainage 550 Urine 500 600 Other: Voiding Method Indwelling Catheter Indwelling Catheter - Exam Lying in bed no acute distress S1-S2 heard NG tube in place Abdomen distended Trace edema - Labs CBC & Chem 7: 09/25/18 05:37 09/25/18 05:37 Labs: Abnormal Lab Results - Last 24 Hours (Table) 09/24/18 09/24/18 09/25/18 Range/Units 16:42 20:51 05:37 RBC 3.39 L (4.30-5.90) m/uL Hgb 10.8 L (13.0-17.5) gm/dL Hct 34.2 L (39.0-53.0) % MCV 100.9 H (80.0-100.0) fL Neutrophils # 8.4 H (1.3-7.7) k/uL Lymphocytes # 0.9 L (1.0-4.8) k/uL Sodium (137-145) mmol/L Potassium (3.5-5.1) mmol/L Carbon Dioxide (22-30) mmol/L BUN (9-20) mg/dL Creatinine (0.66-1.25) mg/dL Glucose (74-99) mg/dL POC Glucose (mg/dL) 134 H 124 H (75-99) mg/dL Total Protein (6.3-8.2) g/dL Albumin (3.5-5.0) g/dL 09/25/18 09/25/18 09/25/18 Range/Units 05:37 05:47 11:48 RBC (4.30-5.90) m/uL Hgb (13.0-17.5) gm/dL Hct (39.0-53.0) % MCV (80.0-100.0) fL Neutrophils # (1.3-7.7) k/uL Lymphocytes # (1.0-4.8) k/uL Sodium 147 H (137-145) mmol/L Potassium 3.3 L (3.5-5.1) mmol/L Carbon Dioxide 35 H (22-30) mmol/L BUN 92 H (9-20) mg/dL Creatinine 2.99 H (0.66-1.25) mg/dL Glucose 141 H (74-99) mg/dL POC Glucose (mg/dL) 146 H 143 H (75-99) mg/dL Total Protein 5.6 L (6.3-8.2) g/dL Albumin 3.0 L (3.5-5.0) g/dL Assessment and Plan Assessment: #1 acute kidney injury secondary to prerenal process from persistent vomiting. #2 severe metabolic alkalosis secondary to persistent vomiting with GI loss off HCl. #3 hypokalemia secondary to renal loss of potassium with metabolic alkalosis #4 vomiting secondary to Duodenal obstruction #5 hyponatremia secondary to volume depletion and normal saline. Plan: #1 change normal saline to half-normal saline at 75 ML's an hour. #2 replace potassium. #3 renal functions improving anticipate to get better #4 avoid nephrotoxic agents and hypotensive episodes #5 GI/surgical management regarding Duodenal obstruction
[2018-09-25] MEDS: PANTOPRAZOLE 40 MG/10 ML VIAL IVP SCH ×2 (13:28→20:56)
[2018-09-25] MEDS: SODIUM CHLORIDE 0.45% 1,000 ML IV SCH ×2 (14:35→22:35)
--- NOTE | 2018-09-25 16:26 | P.PN ---
Subjective 83-year-old admitted for aggressive and nausea vomiting probably partial small bowel obstruction or peptic ulcer disease patient is an NG tube with the biliary drainage patient will undergo upper GI endoscopy today for diagnosis. Patient is still draining significant amount of bilious fluid patient has nausea vomiting went into renal failure because of severe nausea vomiting patient creatinine is around 4.5 days a month 50 mL of normal saline patient has prerenal azotemia still has some urine output. Patient also has atrial flutter because of severe intravascular volume depletion for which patient is receiving IV fluids patient was hypotensive as well from intravascularly and patient nausea vomiting. Patient is presently on Cardizem as well cardiology evaluated the patient patient will not been on anticoagulation because of his recent retroperitoneal bleed. 09/25/2018 Patient still has significant output from the NG tube patient creatinine did improve. Patient appears to have mass effect on the second and third part of the the abdomen in the retroperitoneal area because of his previous retroperitoneal bleed. General surgery evaluated the patient and they're recommending TPN as patient that may not be able to eat for of wall because of his bowel obstruction and the duodenal area because of the retroperitoneal bleed. I'll discuss options with Gen. surgery like a stent placement or evacuation of retroperitoneal hematoma considering these symptoms Constitutional: Denied any fatigue denied any fever. Cardio vascular: denied any chest pain, palpitations Gastrointestinal denied any nausea vomiting Pulmonary: Denied any shortness of breath cough Neurologic denied any new focal deficits All inpatient medications were reviewed and appropriate changes in these medications as dictated in the interval history and assessment and plan. Objective - Vital Signs Vital signs: Vital Signs Temp 98 F 09/25/18 16:00 Pulse 76 09/25/18 16:00 Resp 16 09/25/18 12:00 BP 114/78 09/25/18 16:00 Pulse Ox 98 09/25/18 16:00 Intake & Output 09/24/18 09/25/18 09/25/18 18:59 06:59 18:59 Intake Total 107.308 10.258 Output Total 500 1150 Balance -392.692 -1150 10.258 Weight 73 kg Intake: Intake, IV Titration 7.308 10.258 Amount Diltiazem 125 mg In 7.308 10.258 Sodium Chloride 0.9% 100 ml @ 10 MG/HR 10 mls/hr IV .[id number] [facility] Rx#: [id number] Oral 100 Output: Gastric Drainage 550 Urine 500 600 Other: Voiding Method Indwelling Catheter Indwelling Catheter - Exam PHYSICAL EXAMINATION: GENERAL: The patient is alert and oriented x3, not in any acute distress. Well developed, well nourished. HEENT: Pupils are round and equally reacting to light. EOMI. No scleral icterus. No conjunctival pallor. Normocephalic, atraumatic. No pharyngeal erythema. No thyromegaly. CARDIOVASCULAR: S1 and S2 present. No murmurs, rubs, or gallops. PULMONARY: Chest is clear to auscultation, no wheezing or crackles. ABDOMEN: Soft, NG tube in place no tenderness biliary drainage from the NG tube sluggish bowel sounds. MUSCULOSKELETAL: No joint swelling or deformity. EXTREMITIES: No cyanosis, clubbing, or pedal edema. NEUROLOGICAL: Gross neurological examination did not reveal any focal deficits. SKIN: No rashes. - Labs CBC & Chem 7: 09/25/18 05:37 09/25/18 05:37 Labs: Abnormal Lab Results - Last 24 Hours (Table) 09/24/18 09/24/18 09/25/18 Range/Units 16:42 20:51 05:37 RBC 3.39 L (4.30-5.90) m/uL Hgb 10.8 L (13.0-17.5) gm/dL Hct 34.2 L (39.0-53.0) % MCV 100.9 H (80.0-100.0) fL Neutrophils # 8.4 H (1.3-7.7) k/uL Lymphocytes # 0.9 L (1.0-4.8) k/uL Sodium (137-145) mmol/L Potassium (3.5-5.1) mmol/L Carbon Dioxide (22-30) mmol/L BUN (9-20) mg/dL Creatinine (0.66-1.25) mg/dL Glucose (74-99) mg/dL POC Glucose (mg/dL) 134 H 124 H (75-99) mg/dL Total Protein (6.3-8.2) g/dL Albumin (3.5-5.0) g/dL 09/25/18 09/25/18 09/25/18 Range/Units 05:37 05:47 11:48 RBC (4.30-5.90) m/uL Hgb (13.0-17.5) gm/dL Hct (39.0-53.0) % MCV (80.0-100.0) fL Neutrophils # (1.3-7.7) k/uL Lymphocytes # (1.0-4.8) k/uL Sodium 147 H (137-145) mmol/L Potassium 3.3 L (3.5-5.1) mmol/L Carbon Dioxide 35 H (22-30) mmol/L BUN 92 H (9-20) mg/dL Creatinine 2.99 H (0.66-1.25) mg/dL Glucose 141 H (74-99) mg/dL POC Glucose (mg/dL) 146 H 143 H (75-99) mg/dL Total Protein 5.6 L (6.3-8.2) g/dL Albumin 3.0 L (3.5-5.0) g/dL Assessment and Plan Plan: Small bowel obstruction at the [place] lady a because of mass effect from his previous retroperitoneal bleed continue with NG tube bowel rest IV fluids -Acute renal failure secondary to renal azotemia along with secondary acute tubular necrosis creatinine went up to 5.1 baseline around 0.7. Continue with IV fluids and nephrotoxic agents were discontinued, improving creatinine presently around 2.5 -Hypotension: Secondary to hypovolemia although patient is not in shock at this time. Continue with IV fluid resuscitation at this point of time patient will not require any antibiotics -Type 2 diabetes mellitus -Recent retroperitoneal hematoma -Atrial flutter: Cardiology evaluated the patient management as mentioned above
[2018-09-25 17:33] LABS: Glucose,Whole Blood 129 mg/dL (75-99)
[2018-09-25 20:34] LABS: Glucose,Whole Blood 220 mg/dL (75-99)
[2018-09-25] MEDS: FINASTERIDE 5 MG TAB PO SCH (20:51)
[2018-09-25] MEDS: ATORVASTATIN 10 MG TAB PO SCH (20:51)
[2018-09-26] MEDS: DILTIAZEM 125 MG in SODIUM CHLORIDE 0.9% 100 ML IV SCH (05:22)
[2018-09-26 06:08] LABS: Glucose,Whole Blood 112 mg/dL (75-99)
[2018-09-26] MEDS: INSULIN ASPART (NovoLOG) 100 UNIT/ML VIAL SQ SCH ×4 (06:08→20:42)
[2018-09-26 06:22] LABS: Basophils % (A) 0 %; Eosinophils # (A) 0.2 k/uL (0-0.7); Eosinophils % (A) 2 %; HCT 34.6 % (39.0-53.0); Hypochromasia Moderate; Lymphocytes # (A) 0.8 k/uL (1.0-4.8); Lymphocytes % (A) 7 %; MCH 32.1 pg (25.0-35.0); MCHC 31.7 g/dL (31.0-37.0); MCV 101.2 fL (80.0-100.0); Macrocytosis Slight; Mean Platelet Volume 7.2; Monocytes # (A) 0.6 k/uL (0-1.0); Monocytes % (A) 5 %; Neutrophils # (A) 9.3 k/uL (1.3-7.7); Neutrophils % (A) 84 %; Platelet Count 316 k/uL (150-450); RBC 3.42 m/uL (4.30-5.90); RDW 13.4 % (11.5-15.5); WBC 11.1 k/uL (3.8-10.6)
[2018-09-26 06:34] LABS: Calcium 9.2 mg/dL (8.4-10.2)
[2018-09-26] MEDS: FLECAINIDE 50 MG TAB PO SCH ×2 (08:41→20:13)
[2018-09-26] MEDS: PANTOPRAZOLE 40 MG/10 ML VIAL IVP SCH ×2 (08:46→20:43)
[2018-09-26] MEDS: POTASSIUM CHLORIDE 10 MEQ in WATER FOR INJECTION 1 100ML.BAG IVPB SCH ×6 (09:30→18:14)
--- NOTE | 2018-09-26 09:51 | P.PN ---
Subjective Progress Note Date: 09/26/18 Principal diagnosis: Intractable vomiting Patient feels about the same. White blood cell count 11.1. Hemoglobin is 11. Still with heavy nasogastric tube output. Objective - Vital Signs Vital signs: Vital Signs Temp 97.8 F 09/26/18 08:00 Pulse 80 09/26/18 08:00 Resp 20 09/26/18 08:00 BP 142/70 09/26/18 08:00 Pulse Ox 94 L 09/26/18 08:00 Intake & Output 09/25/18 09/26/18 09/26/18 18:59 06:59 18:59 Intake Total 6461.466 5942.509 Output Total 1650 2200 Balance 280.258 -1139.491 Weight 72.5 kg Intake: IV 120 Diltiazem 125 mg In 120 Sodium Chloride 0.9% 100 ml @ 10 MG/HR 10 mls/hr IV .[id number] [facility] Rx#: [id number] Intake, IV Titration 1810.258 10.509 Amount Diltiazem 125 mg In 10.258 10.509 Sodium Chloride 0.9% 100 ml @ 10 MG/HR 10 mls/hr IV .[id number] [facility] Rx#: [id number] Potassium Chloride 10 meq 400 In Water For Injection 1 100ml.bag @ 100 mls/hr IVPB Q1HR [facility] Rx#: [id number] Sodium Chloride 0.45% 1, 500 000 ml @ 75 mls/hr IV . [id number] [facility] Rx#:[id number] Sodium Chloride 0.9% 1, 900 000 ml @ 150 mls/hr IV . Q6H40M [facility] Rx#:[id number] Oral 1050 Output: Gastric Drainage 800 1600 Urine 850 600 Other: Voiding Method Indwelling Catheter Indwelling Catheter - Exam Abdomen: Soft, nontender, nondistended - Labs CBC & Chem 7: 09/26/18 05:08 09/26/18 05:08 Labs: Abnormal Lab Results - Last 24 Hours (Table) 09/25/18 09/25/18 09/25/18 Range/Units 11:48 17:19 20:33 WBC (3.8-10.6) k/uL RBC (4.30-5.90) m/uL Hgb (13.0-17.5) gm/dL Hct (39.0-53.0) % MCV (80.0-100.0) fL Neutrophils # (1.3-7.7) k/uL Lymphocytes # (1.0-4.8) k/uL Sodium (137-145) mmol/L Potassium (3.5-5.1) mmol/L BUN (9-20) mg/dL Creatinine (0.66-1.25) mg/dL Glucose (74-99) mg/dL POC Glucose (mg/dL) 143 H 129 H 220 H (75-99) mg/dL 09/26/18 09/26/18 09/26/18 Range/Units 05:08 05:08 06:07 WBC 11.1 H (3.8-10.6) k/uL RBC 3.42 L (4.30-5.90) m/uL Hgb 11.0 L (13.0-17.5) gm/dL Hct 34.6 L (39.0-53.0) % MCV 101.2 H (80.0-100.0) fL Neutrophils # 9.3 H (1.3-7.7) k/uL Lymphocytes # 0.8 L (1.0-4.8) k/uL Sodium 149 H (137-145) mmol/L Potassium 3.0 L (3.5-5.1) mmol/L BUN 68 H (9-20) mg/dL Creatinine 2.03 H (0.66-1.25) mg/dL Glucose 106 H (74-99) mg/dL POC Glucose (mg/dL) 112 H (75-99) mg/dL Assessment and Plan (1) Nausea & vomiting Narrative/Plan: Patient's CAT scan shows improving retroperitoneal hematoma. Patient still with high nasogastric tube output however. Continue nasogastric tube to suction. May require TPN. Tenderly plan follow-up upper GI Thursday or Thursday. Current Visit: Yes Status: Acute Code(s): R11.2 - NAUSEA WITH VOMITING, UNSPECIFIED SNOMED Code(s): 56921319
--- NOTE | 2018-09-26 11:44 | P.PN ---
Subjective 83-year-old admitted for aggressive and nausea vomiting probably partial small bowel obstruction or peptic ulcer disease patient is an NG tube with the biliary drainage patient will undergo upper GI endoscopy today for diagnosis. Patient is still draining significant amount of bilious fluid patient has nausea vomiting went into renal failure because of severe nausea vomiting patient creatinine is around 4.5 days a month 50 mL of normal saline patient has prerenal azotemia still has some urine output. Patient also has atrial flutter because of severe intravascular volume depletion for which patient is receiving IV fluids patient was hypotensive as well from intravascularly and patient nausea vomiting. Patient is presently on Cardizem as well cardiology evaluated the patient patient will not been on anticoagulation because of his recent retroperitoneal bleed. 09/25/2018 Patient still has significant output from the NG tube patient creatinine did improve. Patient appears to have mass effect on the second and third part of the the abdomen in the retroperitoneal area because of his previous retroperitoneal bleed. General surgery evaluated the patient and they're recommending TPN as patient that may not be able to eat for of wall because of his bowel obstruction and the duodenal area because of the retroperitoneal bleed. I'll discuss options with Gen. surgery like a stent placement or evacuation of retroperitoneal hematoma considering these symptoms 09/26/2018 Patient still has sluggish bowel sounds NG tube drainage improved no significant drainage after emptying the canister about 400 mL today creatinine continued to improve patient's IV fluids were decreased to 75 mL/h. Patient will go for PICC line placement tomorrow and will be started on total parenteral nutrition uncle his obstruction resolves with resolution of hematoma expected in couple days Constitutional: Denied any fatigue denied any fever. Cardio vascular: denied any chest pain, palpitations Gastrointestinal mentioned in HPI Pulmonary: Denied any shortness of breath cough Neurologic denied any new focal deficits All inpatient medications were reviewed and appropriate changes in these medications as dictated in the interval history and assessment and plan. Objective - Vital Signs Vital signs: Vital Signs Temp 97.8 F 09/26/18 08:00 Pulse 80 09/26/18 08:00 Resp 20 09/26/18 08:00 BP 142/70 09/26/18 08:00 Pulse Ox 94 L 09/26/18 08:00 Intake & Output 09/25/18 09/26/18 09/26/18 18:59 06:59 18:59 Intake Total 9988.884 7610.509 Output Total 1650 2200 Balance 280.258 -1139.491 Weight 72.5 kg Intake: IV 120 Diltiazem 125 mg In 120 Sodium Chloride 0.9% 100 ml @ 10 MG/HR 10 mls/hr IV .[id number] [facility] Rx#: [id number] Intake, IV Titration 1810.258 10.509 Amount Diltiazem 125 mg In 10.258 10.509 Sodium Chloride 0.9% 100 ml @ 10 MG/HR 10 mls/hr IV .[id number] [facility] Rx#: [id number] Potassium Chloride 10 meq 400 In Water For Injection 1 100ml.bag @ 100 mls/hr IVPB Q1HR [facility] Rx#: [id number] Sodium Chloride 0.45% 1, 500 000 ml @ 75 mls/hr IV . [id number] [facility] Rx#:[id number] Sodium Chloride 0.9% 1, 900 000 ml @ 150 mls/hr IV . Q6H40M [facility] Rx#:[id number] Oral 1050 Output: Gastric Drainage 800 1600 Urine 850 600 Other: Voiding Method Indwelling Catheter Indwelling Catheter - Exam PHYSICAL EXAMINATION: GENERAL: The patient is alert and oriented x3, not in any acute distress. Well developed, well nourished. HEENT: Pupils are round and equally reacting to light. EOMI. No scleral icterus. No conjunctival pallor. Normocephalic, atraumatic. No pharyngeal erythema. No thyromegaly. CARDIOVASCULAR: S1 and S2 present. No murmurs, rubs, or gallops. PULMONARY: Chest is clear to auscultation, no wheezing or crackles. ABDOMEN: Soft, NG tube in place.sluggish bowel sounds. MUSCULOSKELETAL: No joint swelling or deformity. EXTREMITIES: No cyanosis, clubbing, or pedal edema. NEUROLOGICAL: Gross neurological examination did not reveal any focal deficits. SKIN: No rashes. - Labs CBC & Chem 7: 09/26/18 05:08 09/26/18 05:08 Labs: Abnormal Lab Results - Last 24 Hours (Table) 09/25/18 09/25/18 09/25/18 Range/Units 11:48 17:19 20:33 WBC (3.8-10.6) k/uL RBC (4.30-5.90) m/uL Hgb (13.0-17.5) gm/dL Hct (39.0-53.0) % MCV (80.0-100.0) fL Neutrophils # (1.3-7.7) k/uL Lymphocytes # (1.0-4.8) k/uL Sodium (137-145) mmol/L Potassium (3.5-5.1) mmol/L BUN (9-20) mg/dL Creatinine (0.66-1.25) mg/dL Glucose (74-99) mg/dL POC Glucose (mg/dL) 143 H 129 H 220 H (75-99) mg/dL 09/26/18 09/26/18 09/26/18 Range/Units 05:08 05:08 06:07 WBC 11.1 H (3.8-10.6) k/uL RBC 3.42 L (4.30-5.90) m/uL Hgb 11.0 L (13.0-17.5) gm/dL Hct 34.6 L (39.0-53.0) % MCV 101.2 H (80.0-100.0) fL Neutrophils # 9.3 H (1.3-7.7) k/uL Lymphocytes # 0.8 L (1.0-4.8) k/uL Sodium 149 H (137-145) mmol/L Potassium 3.0 L (3.5-5.1) mmol/L BUN 68 H (9-20) mg/dL Creatinine 2.03 H (0.66-1.25) mg/dL Glucose 106 H (74-99) mg/dL POC Glucose (mg/dL) 112 H (75-99) mg/dL Assessment and Plan Plan: Small bowel obstruction at second and third part of the rhythm a because of mass effect from his previous retroperitoneal bleed continue with NG tube bowel rest IV fluids and increase TPN tomorrow and repeat barium study on Thursday -Acute renal failure secondary to renal azotemia along with secondary acute tubular necrosis creatinine went up to 5.1 baseline around 0.7. Continue with IV fluids and nephrotoxic agents were discontinued, improving creatinine presently around 2.0 -Hypotension: Secondary to hypovolemia although patient is not in shock at this time. Continue with IV fluid resuscitation at this point of time patient will not require any antibiotics. Hypotension improved -Type 2 diabetes mellitus -Recent retroperitoneal hematoma -Atrial flutter: Cardiology evaluated the patient management as mentioned above
[2018-09-26 11:54] LABS: Glucose,Whole Blood 126 mg/dL (75-99)
[2018-09-26] MEDS ORDERED: DEXTROSE 5% IN WATER 1,000 ML IV SCH (12:30)
--- NOTE | 2018-09-26 12:54 | P.PN ---
Subjective Progress Note Date: 09/26/18 Seen and examined for the follow-up of acute kidney injury and metabolic alkalosis. Still has NG tube in. Objective - Vital Signs Vital signs: Vital Signs Temp 97.4 F L 09/26/18 11:58 Pulse 71 09/26/18 11:58 Resp 20 09/26/18 11:58 BP 136/76 09/26/18 11:58 Pulse Ox 96 09/26/18 11:58 Intake & Output 09/25/18 09/26/18 09/26/18 18:59 06:59 18:59 Intake Total 5621.919 6337.509 200 Output Total 1650 2200 800 Balance 280.258 -1139.491 -600 Weight 72.5 kg 72.5 kg Intake: IV 120 Diltiazem 125 mg In 120 Sodium Chloride 0.9% 100 ml @ 10 MG/HR 10 mls/hr IV .[id number] [facility] Rx#: [id number] Intake, IV Titration 1810.258 10.509 Amount Diltiazem 125 mg In 10.258 10.509 Sodium Chloride 0.9% 100 ml @ 10 MG/HR 10 mls/hr IV .[id number] [facility] Rx#: [id number] Potassium Chloride 10 meq 400 In Water For Injection 1 100ml.bag @ 100 mls/hr IVPB Q1HR [facility] Rx#: [id number] Sodium Chloride 0.45% 1, 500 000 ml @ 75 mls/hr IV . [id number] [facility] Rx#:[id number] Sodium Chloride 0.9% 1, 900 000 ml @ 150 mls/hr IV . Q6H40M [facility] Rx#:[id number] Oral 1050 200 Output: Gastric Drainage 800 1600 800 Urine 850 600 Other: Voiding Method Indwelling Catheter Indwelling Catheter - Exam Lying in bed no acute distress S1-S2 heard NG tube in place Abdomen distended Trace edema - Labs CBC & Chem 7: 09/26/18 05:08 09/26/18 05:08 Labs: Abnormal Lab Results - Last 24 Hours (Table) 09/25/18 09/25/18 09/26/18 Range/Units 17:19 20:33 05:08 WBC 11.1 H (3.8-10.6) k/uL RBC 3.42 L (4.30-5.90) m/uL Hgb 11.0 L (13.0-17.5) gm/dL Hct 34.6 L (39.0-53.0) % MCV 101.2 H (80.0-100.0) fL Neutrophils # 9.3 H (1.3-7.7) k/uL Lymphocytes # 0.8 L (1.0-4.8) k/uL Sodium (137-145) mmol/L Potassium (3.5-5.1) mmol/L BUN (9-20) mg/dL Creatinine (0.66-1.25) mg/dL Glucose (74-99) mg/dL POC Glucose (mg/dL) 129 H 220 H (75-99) mg/dL 09/26/18 09/26/18 09/26/18 Range/Units 05:08 06:07 11:25 WBC (3.8-10.6) k/uL RBC (4.30-5.90) m/uL Hgb (13.0-17.5) gm/dL Hct (39.0-53.0) % MCV (80.0-100.0) fL Neutrophils # (1.3-7.7) k/uL Lymphocytes # (1.0-4.8) k/uL Sodium 149 H (137-145) mmol/L Potassium 3.0 L (3.5-5.1) mmol/L BUN 68 H (9-20) mg/dL Creatinine 2.03 H (0.66-1.25) mg/dL Glucose 106 H (74-99) mg/dL POC Glucose (mg/dL) 112 H 126 H (75-99) mg/dL Assessment and Plan Assessment: #1 acute kidney injury secondary to prerenal process from persistent vomiting. #2 severe metabolic alkalosis secondary to persistent vomiting with GI loss off HCl. #3 hypokalemia secondary to renal loss of potassium with metabolic alkalosis #4 vomiting secondary to Duodenal obstruction #5 hypernatremia secondary to volume depletion and normal saline. Plan: #1 change half-normal saline to D5 water with potassium replacement. #2 replace potassium. Check magnesium in the morning #3 renal functions improving anticipate to get better next few days #4 avoid nephrotoxic agents and hypotensive episodes #5 GI/surgical management regarding Duodenal obstruction
[2018-09-26] MEDS: DEXTROSE 5% IN WATER 1,000 ML with POTASSIUM CHLORIDE 40 MEQ IV SCH (13:55)
[2018-09-26 16:55] LABS: Glucose,Whole Blood 146 mg/dL (75-99)
[2018-09-26] MEDS: ATORVASTATIN 10 MG TAB PO SCH (20:12)
[2018-09-26] MEDS: FINASTERIDE 5 MG TAB PO SCH (20:13)
[2018-09-26 20:38] LABS: Glucose,Whole Blood 132 mg/dL (75-99)
[2018-09-26] MEDS: LORazepam 2 MG/ML INJ IV PRN (22:49)
[2018-09-27] MEDS: DEXTROSE 5% IN WATER 1,000 ML with POTASSIUM CHLORIDE 40 MEQ IV SCH ×3 (00:37→22:54)
[2018-09-27] MEDS: DILTIAZEM 125 MG in SODIUM CHLORIDE 0.9% 100 ML IV SCH (03:51)
[2018-09-27 06:28] LABS: Glucose,Whole Blood 197 mg/dL (75-99)
[2018-09-27] MEDS: INSULIN ASPART (NovoLOG) 100 UNIT/ML VIAL SQ SCH ×4 (06:34→23:47)
[2018-09-27 08:59] LABS: Calcium 9.2 mg/dL (8.4-10.2); Magnesium 1.8 mg/dL (1.6-2.3); Potassium 3.6 mmol/L (3.5-5.1)
[2018-09-27] MEDS: FLECAINIDE 50 MG TAB PO SCH ×2 (09:13→21:07)
[2018-09-27] MEDS: PANTOPRAZOLE 40 MG/10 ML VIAL IVP SCH ×2 (09:13→21:03)
--- NOTE | 2018-09-27 10:18 | P.PN ---
<Patti Madrigal Ajay - Last Filed: 09/27/18 10:11> Subjective Progress Note Date: 09/27/18 CHIEF COMPLAINT: Intractable vomiting HISTORY OF PRESENT ILLNESS: Patient examined at the bedside this morning. Family present. Patient states he feels "okay" when asked. NG tube in place. About 1 L of bilious drainage in canister. Patient is apparently eating ice chips continuously which may account for the high NG output. PHYSICAL EXAM: VITAL SIGNS: Currently stable. GENERAL: Well-developed in no acute distress. HEENT: NG tube intact with bilious drainage. No sclera icterus. Extraocular movements grossly intact. Moist buccal mucosa. Head is atraumatic, normocephalic. Hears conversational speech. No nasal drainage. NECK: Supple without lymphadenopathy. CHEST: Non-labored respirations and equal bilateral excursions. CARDIOVASCULAR: Regular rate with regular rhythm. Palpable 2+ radial pulses. ABDOMEN: Soft. Nondistended. Nontender. MUSCULOSKELETAL: No clubbing, cyanosis or edema. NEUROLOGIC: No focal or lateralizing signs. Cranial nerves II through XII grossly intact. PSYCH: Appropriate affect. Alert and oriented to person, place and time. SKIN: Well perfused. Good skin turgor. ASSESSMENT: 1. Nausea and vomiting 2. Retroperitoneal hematoma, most recent CT shows improvement PLAN: 1. Continue NG tube 2. Ice chips and popsicles only 3. Order placed for PICC line 4. Dietitian on consult for TPN 5. Repeat upper GI series Thursday or Thursday Nurse practitioner note has been reviewed by physician. Signing provider agrees with the documented findings, assessment, and plan of care. Objective - Vital Signs Vital signs: Vital Signs Temp 97.4 F L 09/27/18 03:46 Pulse 69 09/27/18 03:46 Resp 16 09/27/18 03:46 BP 120/67 09/27/18 03:46 Pulse Ox 94 L 09/27/18 03:46 Intake & Output 09/26/18 09/27/18 09/27/18 18:59 06:59 18:59 Intake Total 1340 161.242 240 Output Total 2100 1675 Balance -760 -8957.758 240 Weight 72.5 kg 70.5 kg Intake: IV 40 Diltiazem 125 mg In 40 Sodium Chloride 0.9% 100 ml @ 10 MG/HR 10 mls/hr IV .[id number] [facility] Rx#: [id number] Intake, IV Titration 900 11.242 Amount Dextrose 5% in Water 1, 300 000 ml @ 75 mls/hr IV . [id number] [facility] with Potassium Chloride 40 meq Rx#:[id number] Diltiazem 125 mg In 11.242 Sodium Chloride 0.9% 100 ml @ 10 MG/HR 10 mls/hr IV .[id number] [facility] Rx#: [id number] Potassium Chloride 10 meq 600 In Water For Injection 1 100ml.bag @ 100 mls/hr IVPB Q1HR [facility] Rx#: [id number] Oral 400 150 240 Output: Gastric Drainage 1250 1000 Urine 850 675 Uretheral (Mustafa) 525 Other: Voiding Method Indwelling Catheter Indwelling Catheter - Labs CBC & Chem 7: 09/26/18 05:08 09/27/18 08:20 Labs: Abnormal Lab Results - Last 24 Hours (Table) 09/26/18 09/26/18 09/26/18 Range/Units 11:25 16:50 20:37 Sodium (137-145) mmol/L Carbon Dioxide (22-30) mmol/L BUN (9-20) mg/dL Creatinine (0.66-1.25) mg/dL Glucose (74-99) mg/dL POC Glucose (mg/dL) 126 H 146 H 132 H (75-99) mg/dL 09/27/18 09/27/18 Range/Units 06:27 08:20 Sodium 146 H (137-145) mmol/L Carbon Dioxide 39 H (22-30) mmol/L BUN 49 H (9-20) mg/dL Creatinine 1.47 H (0.66-1.25) mg/dL Glucose 151 H (74-99) mg/dL POC Glucose (mg/dL) 197 H (75-99) mg/dL <Ronny Osorio - Last Filed: 09/27/18 14:54> Subjective As above. Patient doing well today. Denies pain. PICC line placed today. We' ll start TPN. We'll plan upper GI Thursday. Objective - Vital Signs Vital signs: Vital Signs Temp 98.0 F 09/27/18 11:55 Pulse 83 09/27/18 11:55 Resp 18 09/27/18 11:55 BP 140/68 09/27/18 11:55 Pulse Ox 95 09/27/18 11:55 Intake & Output 09/26/18 09/27/18 09/27/18 18:59 06:59 18:59 Intake Total 1340 161.242 240 Output Total 2100 1675 Balance -760 -0197.758 240 Weight 72.5 kg 70.5 kg Intake: IV 40 Diltiazem 125 mg In 40 Sodium Chloride 0.9% 100 ml @ 10 MG/HR 10 mls/hr IV .[id number] [facility] Rx#: [id number] Intake, IV Titration 900 11.242 Amount Dextrose 5% in Water 1, 300 000 ml @ 75 mls/hr IV . [id number] [facility] with Potassium Chloride 40 meq Rx#:[id number] Diltiazem 125 mg In 11.242 Sodium Chloride 0.9% 100 ml @ 10 MG/HR 10 mls/hr IV .[id number] [facility] Rx#: [id number] Potassium Chloride 10 meq 600 In Water For Injection 1 100ml.bag @ 100 mls/hr IVPB Q1HR [facility] Rx#: [id number] Oral 400 150 240 Output: Gastric Drainage 1250 1000 Urine 850 675 Uretheral (Mustafa) 525 Other: Voiding Method Indwelling Catheter Indwelling Catheter Indwelling Catheter - Labs CBC & Chem 7: 09/26/18 05:08 09/27/18 08:20 Labs: Abnormal Lab Results - Last 24 Hours (Table) 09/26/18 09/26/18 09/27/18 Range/Units 16:50 20:37 06:27 Sodium (137-145) mmol/L Carbon Dioxide (22-30) mmol/L BUN (9-20) mg/dL Creatinine (0.66-1.25) mg/dL Glucose (74-99) mg/dL POC Glucose (mg/dL) 146 H 132 H 197 H (75-99) mg/dL 09/27/18 09/27/18 Range/Units 08:20 11:33 Sodium 146 H (137-145) mmol/L Carbon Dioxide 39 H (22-30) mmol/L BUN 49 H (9-20) mg/dL Creatinine 1.47 H (0.66-1.25) mg/dL Glucose 151 H (74-99) mg/dL POC Glucose (mg/dL) 172 H (75-99) mg/dL Assessment and Plan (1) Nausea & vomiting Current Visit: Yes Status: Acute Code(s): R11.2 - NAUSEA WITH VOMITING, UNSPECIFIED SNOMED Code(s): 43896825
[2018-09-27 11:42] LABS: Glucose,Whole Blood 172 mg/dL (75-99)
--- NOTE | 2018-09-27 11:44 | P.PN ---
Subjective Patient continues with NG tube to suction bowel sounds quiet. Arrangements are being made for TPN start. Patient noted have small bowel obstruction and duodenal secondary to peritoneal hemorrhage. Family states that they wanted transfer to [facility] if he needs any surgical intervention Objective - Vital Signs Vital signs: Vital Signs Temp 98.1 F 09/27/18 08:00 Pulse 73 09/27/18 08:00 Resp 18 09/27/18 08:00 BP 137/63 09/27/18 08:00 Pulse Ox 95 09/27/18 08:00 Intake & Output 09/26/18 09/27/18 09/27/18 18:59 06:59 18:59 Intake Total 1340 161.242 240 Output Total 2100 1675 Balance -760 -1513.758 240 Weight 72.5 kg 70.5 kg Intake: IV 40 Diltiazem 125 mg In 40 Sodium Chloride 0.9% 100 ml @ 10 MG/HR 10 mls/hr IV .[id number] [facility] Rx#: [id number] Intake, IV Titration 900 11.242 Amount Dextrose 5% in Water 1, 300 000 ml @ 75 mls/hr IV . [id number] [facility] with Potassium Chloride 40 meq Rx#:[id number] Diltiazem 125 mg In 11.242 Sodium Chloride 0.9% 100 ml @ 10 MG/HR 10 mls/hr IV .[id number] [facility] Rx#: [id number] Potassium Chloride 10 meq 600 In Water For Injection 1 100ml.bag @ 100 mls/hr IVPB Q1HR [facility] Rx#: [id number] Oral 400 150 240 Output: Gastric Drainage 1250 1000 Urine 850 675 Uretheral (Mustafa) 525 Other: Voiding Method Indwelling Catheter Indwelling Catheter Indwelling Catheter - Constitutional General appearance: Present: mild distress - EENT EENT Comment(s): NG tube in place Eyes: Present: PERRLA Ears: bilateral: normal - Neck Neck: Present: normal ROM - Respiratory Respiratory: bilateral: CTA - Cardiovascular Rhythm: regular - Gastrointestinal General gastrointestinal: Present: decreased bowel sounds, soft - Genitourinary Genitourinary Comment(s): Mustafa in place - Neurologic Neurologic: Present: CNII-XII intact - Musculoskeletal Musculoskeletal: Present: generalized weakness - Psychiatric Psychiatric: Present: A&O x's 3, appropriate affect, intact judgment & insight - Labs CBC & Chem 7: 09/26/18 05:08 09/27/18 08:20 Labs: Abnormal Lab Results - Last 24 Hours (Table) 09/26/18 09/26/18 09/26/18 Range/Units 11:25 16:50 20:37 Sodium (137-145) mmol/L Carbon Dioxide (22-30) mmol/L BUN (9-20) mg/dL Creatinine (0.66-1.25) mg/dL Glucose (74-99) mg/dL POC Glucose (mg/dL) 126 H 146 H 132 H (75-99) mg/dL 09/27/18 09/27/18 Range/Units 06:27 08:20 Sodium 146 H (137-145) mmol/L Carbon Dioxide 39 H (22-30) mmol/L BUN 49 H (9-20) mg/dL Creatinine 1.47 H (0.66-1.25) mg/dL Glucose 151 H (74-99) mg/dL POC Glucose (mg/dL) 197 H (75-99) mg/dL Assessment and Plan Plan: Assessment Acute renal failure secondary to dehydration Small bowel obstruction duodenum secondary to peritoneal hemorrhage has NG tube in place Leukocytosis Diabetes type 2 Hypertension anemia BPH Paroxysmal atrial flutter Plan Continue consultation with [facility] Surgical consultation upper GI scheduled for Thursday Continue consultation with cardiology Scheduled for line for TPN
[2018-09-27] MEDS ORDERED: LIDOCAINE 1% INJ 10MG/ML (20 ML MDV) SQ ONE (13:24)
--- NOTE | 2018-09-27 14:08 | IR ---
PICC LINE PLACEMENT: HISTORY: Infection requiring long-term antibiotic therapy PROCEDURE: Ultrasound and fluoroscopic guidance of PICC line placement. COMPLICATIONS: None ANESTHESIA: 1. 1% Lidocaine locally. FINDINGS/TECHNIQUE: The procedure was explained to the patient. The risks, complications, benefits and alternatives were discussed and any questions were answered. Informed consent was obtained. The patient was placed supine on the fluoroscopic table and prepped and draped in the usual sterile fash ion. Utilizing a 21 gauge needle and sonographic and fluoroscopic guidance, access in the left basi lic vein was achieved and there is placement of a 0.018 guidewire. The vein is patent. A 4-F sheath was placed over the guidewire. The guidewire and dilator were removed and a 4-F. PICC line was plac ed through the sheath with the tip at the level of the SVC. The sheath was removed, the catheter was flushed and sutured into position. The patient was stable throughout the procedure and remained sta ble upon discharge from the Department of Radiology. The vein puncture was patent under ultrasound. A diaz scale image was obtained to document patency of the vein punctured. All elements of the maximal barrier technique were utilized. FLUOROSCOPY TIME: 0.2 minutes, one image submitted IMPRESSION: Successful PICC line placement under ultrasound and fluoroscopic guidance.
[2018-09-27 15:31] LABS: Phosphorus 2.2 mg/dL (2.5-4.5)
[2018-09-27] MEDS ORDERED: POTASSIUM CHLORIDE 20 MEQ in WATER FOR INJECTION 1 100ML.BAG IVPB ONE (16:00)
[2018-09-27] MEDS ORDERED: POTASSIUM PHOSPHATE 10 MMOL in SODIUM CHLORIDE 0.9% 100 ML IV ONE (16:30)
[2018-09-27] MEDS ORDERED: MVI, ADULT NO.4 WITH VIT K 10 ML, TRACE (CONC-1ML/DOSE) 1 ML in AMINO ACID 5%-D15W+LYTE... IV SCH ×3 (16:45)
[2018-09-27 16:51] LABS: Glucose,Whole Blood 147 mg/dL (75-99)
[2018-09-27] MEDS: LORazepam 2 MG/ML INJ IV PRN (17:07)
[2018-09-27] MEDS: MAGNESIUM SULFATE-D5W PMX 1 GM in DEXTROSE/WATER 1 100ML.BAG IVPB SCH ×2 (17:10→20:59)
--- NOTE | 2018-09-27 17:59 | PN ---
PROGRESS NOTE Patient is seen for followup for acute kidney injury. His renal function has improved significantly, with creatinine going down from 5.1 to 1.4 mg/dL today. On examination, patient is comfortable. He denies any significant complaints. Blood pressure 140/68, heart rate of 80 per minute. He is afebrile. EXAMINATION OF THE HEART: S1 and S2. EXAMINATION OF LUNGS: Bilateral breath sounds are heard. ABDOMEN: Soft, non-tender. Examination of lower extremities shows trace edema bilaterally. [employer] exam is grossly intact. Labs show sodium 146, potassium 3.6, BUN 49, serum creatinine 1.47. Phosphorus was 2.2. ASSESSMENT: 1. Acute kidney injury, acute tubular necrosis, currently improved. There was a prerenal component as well. 2. Intravascular volume depletion, status post IV fluids. 3. Severe metabolic alkalosis secondary to gastrointestinal fluid loss, now improved. 4. Hypokalemia secondary to gastrointestinal fluid loss and metabolic alkalosis, now improved. 5. Mild hypernatremia, which is better. Patient's IV fluids were changed to half- normal saline. He will be started on TPN as well. PLAN: Continue with the IV fluids. Repeat labs in a.m. Avoid nephrotoxic agents. MMODL / IJN: [id number] /
[2018-09-27 18:40] LABS: Basophils % (A) 0 %; Eosinophils # (A) 0.3 k/uL (0-0.7); Eosinophils % (A) 3 %; HCT 34.6 % (39.0-53.0); HGB 10.9 gm/dL (13.0-17.5); Lymphocytes # (A) 1.1 k/uL (1.0-4.8); Lymphocytes % (A) 11 %; MCH 30.8 pg (25.0-35.0); MCHC 31.5 g/dL (31.0-37.0); Mean Platelet Volume 7.8; Monocytes # (A) 0.4 k/uL (0-1.0); Monocytes % (A) 4 %; Neutrophils # (A) 7.9 k/uL (1.3-7.7); Neutrophils % (A) 80 %; Platelet Count 258 k/uL (150-450); RBC 3.53 m/uL (4.30-5.90); RDW 13.2 % (11.5-15.5); WBC 9.8 k/uL (3.8-10.6)
[2018-09-27 21:00] LABS: Glucose,Whole Blood 150 mg/dL (75-99)
[2018-09-27] MEDS: FINASTERIDE 5 MG TAB PO SCH (21:07)
[2018-09-27] MEDS: ATORVASTATIN 10 MG TAB PO SCH (21:07)
[2018-09-27] MEDS ORDERED: INSULIN ASPART (NovoLOG) 100 UNIT/ML VIAL SQ SCH (21:30)
[2018-09-27] MEDS: FAT EMULSION 20% 250 ML in EMPTY BAG 1 BAG IV SCH (22:42)
[2018-09-27 23:44] LABS: Basophils % (A) 0 %; Eosinophils # (A) 0.4 k/uL (0-0.7); Eosinophils % (A) 3 %; HGB 11.3 gm/dL (13.0-17.5); Hypochromasia Slight; Lymphocytes # (A) 1.1 k/uL (1.0-4.8); Lymphocytes % (A) 11 %; MCH 30.8 pg (25.0-35.0); MCHC 31.3 g/dL (31.0-37.0); MCV 98.6 fL (80.0-100.0); Mean Platelet Volume 7.8; Monocytes # (A) 0.5 k/uL (0-1.0); Monocytes % (A) 5 %; Neutrophils # (A) 8.1 k/uL (1.3-7.7); Neutrophils % (A) 79 %; Platelet Count 258 k/uL (150-450); RBC 3.65 m/uL (4.30-5.90); RDW 13.2 % (11.5-15.5); WBC 10.3 k/uL (3.8-10.6)
[2018-09-27 23:57] LABS: Glucose,Whole Blood 189 mg/dL (75-99)
[2018-09-28] MEDS: INSULIN ASPART (NovoLOG) 100 UNIT/ML VIAL SQ SCH ×4 (00:14→18:37)
[2018-09-28 06:21] LABS: Glucose,Whole Blood 222 mg/dL (75-99)
[2018-09-28] MEDS: DILTIAZEM 125 MG in SODIUM CHLORIDE 0.9% 100 ML IV SCH ×2 (06:24→23:12)
[2018-09-28 06:55] LABS: Basophils % (A) 0 %; Eosinophils # (A) 0.3 k/uL (0-0.7); Eosinophils % (A) 4 %; HCT 35.3 % (39.0-53.0); Lymphocytes % (A) 11 %; MCHC 31.3 g/dL (31.0-37.0); MCV 99.1 fL (80.0-100.0); Mean Platelet Volume 7.2; Monocytes # (A) 0.4 k/uL (0-1.0); Monocytes % (A) 4 %; Neutrophils # (A) 7.1 k/uL (1.3-7.7); Neutrophils % (A) 80 %; Platelet Count 287 k/uL (150-450); RBC 3.56 m/uL (4.30-5.90); RDW 13.3 % (11.5-15.5); WBC 8.8 k/uL (3.8-10.6)
[2018-09-28 06:58] LABS: Ionized Calcium 5.2 mg/dL (4.5-5.3)
[2018-09-28 07:12] LABS: Albumin 2.7 g/dL (3.5-5.0); Calcium 9.2 mg/dL (8.4-10.2); Magnesium 1.9 mg/dL (1.6-2.3); Phosphorus 2.8 mg/dL (2.5-4.5); Potassium 3.3 mmol/L (3.5-5.1)
[2018-09-28] MEDS: PANTOPRAZOLE 40 MG/10 ML VIAL IVP SCH ×2 (08:33→22:01)
[2018-09-28] MEDS: FLECAINIDE 50 MG TAB PO SCH ×2 (09:58→23:12)
[2018-09-28] MEDS: POTASSIUM CHLORIDE 20 MEQ in WATER FOR INJECTION 1 100ML.BAG IVPB SCH ×2 (10:14→12:01)
[2018-09-28 11:31] LABS: Glucose,Whole Blood 223 mg/dL (75-99)
--- NOTE | 2018-09-28 11:41 | P.PN ---
Subjective Patient resting in bed no complaint at this time. Continues with NG to suction large amount of bilious return. Having problems with Mustafa catheter week around catheter urology consult. Renal function improved creatinine 1.36. TPN initiated Objective - Vital Signs Vital signs: Vital Signs Temp 98.1 F 09/28/18 08:00 Pulse 82 09/28/18 08:00 Resp 20 09/28/18 08:00 BP 132/63 09/28/18 08:00 Pulse Ox 92 L 09/28/18 08:00 Intake & Output 09/27/18 09/28/18 09/28/18 18:59 06:59 18:59 Intake Total 460 18.675 40 Output Total 1955 Balance 460 -1936.325 40 Weight 70.5 kg Intake: Intake, IV Titration 18.675 Amount Diltiazem 125 mg In 18.675 Sodium Chloride 0.9% 100 ml @ 10 MG/HR 10 mls/hr IV .[id number] [facility] Rx#: [id number] Oral 460 40 Output: Gastric Drainage 1025 Urine 930 Other: Voiding Method Indwelling Catheter Indwelling Catheter Indwelling Catheter - Constitutional General appearance: Present: mild distress - EENT EENT Comment(s): NG to suction Eyes: Present: PERRLA - Neck Neck: Present: normal ROM - Respiratory Respiratory: bilateral: CTA - Cardiovascular Rhythm: regular - Gastrointestinal General gastrointestinal: Present: decreased bowel sounds, soft - Genitourinary Genitourinary Comment(s): Mustfaa catheter urine leaking around the Mustafa. External catheter 5 urology consult - Integumentary Integumentary: Present: normal - Neurologic Neurologic: Present: CNII-XII intact - Musculoskeletal Musculoskeletal: Present: generalized weakness - Psychiatric Psychiatric: Present: A&O x's 3, appropriate affect, intact judgment & insight - Labs CBC & Chem 7: 09/28/18 06:22 09/28/18 06:22 Labs: Abnormal Lab Results - Last 24 Hours (Table) 09/27/18 09/27/18 09/27/18 Range/Units 08:20 11:33 16:34 RBC (4.30-5.90) m/uL Hgb (13.0-17.5) gm/dL Hct (39.0-53.0) % Neutrophils # (1.3-7.7) k/uL Potassium (3.5-5.1) mmol/L Carbon Dioxide (22-30) mmol/L BUN (9-20) mg/dL Creatinine (0.66-1.25) mg/dL Glucose (74-99) mg/dL POC Glucose (mg/dL) 172 H 147 H (75-99) mg/dL Phosphorus 2.2 L (2.5-4.5) mg/dL Albumin (3.5-5.0) g/dL 09/27/18 09/27/18 09/27/18 Range/Units 18:13 20:58 22:38 RBC 3.53 L 3.65 L (4.30-5.90) m/uL Hgb 10.9 L 11.3 L (13.0-17.5) gm/dL Hct 34.6 L 36.0 L (39.0-53.0) % Neutrophils # 7.9 H 8.1 H (1.3-7.7) k/uL Potassium (3.5-5.1) mmol/L Carbon Dioxide (22-30) mmol/L BUN (9-20) mg/dL Creatinine (0.66-1.25) mg/dL Glucose (74-99) mg/dL POC Glucose (mg/dL) 150 H (75-99) mg/dL Phosphorus (2.5-4.5) mg/dL Albumin (3.5-5.0) g/dL 09/27/18 09/28/18 09/28/18 Range/Units 23:56 06:20 06:22 RBC (4.30-5.90) m/uL Hgb (13.0-17.5) gm/dL Hct (39.0-53.0) % Neutrophils # (1.3-7.7) k/uL Potassium 3.3 L (3.5-5.1) mmol/L Carbon Dioxide 34 H (22-30) mmol/L BUN 36 H (9-20) mg/dL Creatinine 1.36 H (0.66-1.25) mg/dL Glucose 239 H (74-99) mg/dL POC Glucose (mg/dL) 189 H 222 H (75-99) mg/dL Phosphorus (2.5-4.5) mg/dL Albumin 2.7 L (3.5-5.0) g/dL 09/28/18 09/28/18 Range/Units 06:22 11:29 RBC 3.56 L (4.30-5.90) m/uL Hgb 11.0 L (13.0-17.5) gm/dL Hct 35.3 L (39.0-53.0) % Neutrophils # (1.3-7.7) k/uL Potassium (3.5-5.1) mmol/L Carbon Dioxide (22-30) mmol/L BUN (9-20) mg/dL Creatinine (0.66-1.25) mg/dL Glucose (74-99) mg/dL POC Glucose (mg/dL) 223 H (75-99) mg/dL Phosphorus (2.5-4.5) mg/dL Albumin (3.5-5.0) g/dL Assessment and Plan Plan: Assessment Acute renal failure secondary to dehydration nausea vomiting secondary to small bowel obstruction in the duodenum leukocytosis resolved History of peritoneal hemorrhage Diabetes type 2 Paroxysmal atrial flutter Hyperlipidemia BPH Dilated gallbladder EKG right bundle branch block Plan Upper GI scheduled for tomorrow Continue consultation with nephrology and gastroenterology surgery
--- NOTE | 2018-09-28 12:08 | PN ---
PROGRESS NOTE Patient is seen for followup for acute kidney injury. His renal function has improved significantly. Patient's creatinine is down to 1.36 from 5.1 on initial admission. He remains with an NG tube in place. PHYSICAL EXAMINATION: Blood pressure was 132/63, heart rate 82 per minute. He is afebrile. Examination of the heart, S1, S2. Examination of the lungs, bilateral breath sounds are heard. Abdomen is soft, nontender. Examination of the lower extremities shows no evidence of edema. LABS: Show sodium 141, potassium 3.3, chloride 104, BUN 36, serum creatinine 1.36, hemoglobin 11.0. ASSESSMENT: 1. Acute kidney injury, currently improved significantly. The patient is maintained on TPN. 2. Intravascular volume depletion, now improved. 3. Hypokalemia secondary to gastrointestinal fluid loss, status post replacement. 4. Small bowel obstruction, currently with an NG tube in place. PLAN: Continue with IV fluids. Patient is not eating yet. Replace potassium and avoid nephrotoxic agents. Repeat labs in a.m. MMODL / IJN: [id number] /
[2018-09-28 12:39] LABS: Basophils % (A) 0 %; Eosinophils # (A) 0.3 k/uL (0-0.7); Eosinophils % (A) 3 %; HCT 35.5 % (39.0-53.0); Lymphocytes % (A) 10 %; MCH 30.2 pg (25.0-35.0); MCV 97.5 fL (80.0-100.0); Mean Platelet Volume 7.7; Monocytes # (A) 0.5 k/uL (0-1.0); Monocytes % (A) 5 %; Neutrophils # (A) 7.9 k/uL (1.3-7.7); Neutrophils % (A) 80 %; Platelet Count 266 k/uL (150-450); RBC 3.64 m/uL (4.30-5.90); RDW 13.3 % (11.5-15.5)
--- NOTE | 2018-09-28 13:04 | P.PN ---
<Patti Madrigal Ajay - Last Filed: 09/28/18 13:01> Subjective Progress Note Date: 09/28/18 CHIEF COMPLAINT: Intractable vomiting HISTORY OF PRESENT ILLNESS: Patient examined at the bedside. Spouse present. Patient denies abdominal pain. NG remain in place. Patient tolerating ice chips. TPN is infusing. PHYSICAL EXAM: VITAL SIGNS: Currently stable. GENERAL: Well-developed in no acute distress. HEENT: NG tube intact with bilious drainage. No sclera icterus. Extraocular movements grossly intact. Moist buccal mucosa. Head is atraumatic, normocephalic. Hears conversational speech. No nasal drainage. NECK: Supple without lymphadenopathy. CHEST: Non-labored respirations and equal bilateral excursions. CARDIOVASCULAR: Regular rate with regular rhythm. Palpable 2+ radial pulses. ABDOMEN: Soft. Nondistended. Nontender. MUSCULOSKELETAL: No clubbing, cyanosis or edema. NEUROLOGIC: No focal or lateralizing signs. Cranial nerves II through XII grossly intact. PSYCH: Appropriate affect. Alert and oriented to person, place and time. SKIN: Well perfused. Good skin turgor. ASSESSMENT: 1. Nausea and vomiting 2. Retroperitoneal hematoma, most recent CT shows improvement PLAN: 1. Continue NG tube 2. Ice chips and popsicles only 3. Continue TPN 4. Upper GI series tomorrow Nurse practitioner note has been reviewed by physician. Signing provider agrees with the documented findings, assessment, and plan of care. Objective - Vital Signs Vital signs: Vital Signs Temp 98.1 F 09/28/18 08:00 Pulse 82 09/28/18 08:00 Resp 20 09/28/18 08:00 BP 132/63 09/28/18 08:00 Pulse Ox 92 L 09/28/18 08:00 Intake & Output 09/27/18 09/28/18 09/28/18 18:59 06:59 18:59 Intake Total 460 18.675 40 Output Total 1955 Balance 460 -1936.325 40 Weight 70.5 kg Intake: Intake, IV Titration 18.675 Amount Diltiazem 125 mg In 18.675 Sodium Chloride 0.9% 100 ml @ 10 MG/HR 10 mls/hr IV .[id number] [facility] Rx#: [id number] Oral 460 40 Output: Gastric Drainage 1025 Urine 930 Other: Voiding Method Indwelling Catheter Indwelling Catheter Indwelling Catheter - Labs CBC & Chem 7: 09/28/18 12:19 09/28/18 06:22 Labs: Abnormal Lab Results - Last 24 Hours (Table) 09/27/18 09/27/18 09/27/18 Range/Units 08:20 16:34 18:13 RBC 3.53 L (4.30-5.90) m/uL Hgb 10.9 L (13.0-17.5) gm/dL Hct 34.6 L (39.0-53.0) % Neutrophils # 7.9 H (1.3-7.7) k/uL Potassium (3.5-5.1) mmol/L Carbon Dioxide (22-30) mmol/L BUN (9-20) mg/dL Creatinine (0.66-1.25) mg/dL Glucose (74-99) mg/dL POC Glucose (mg/dL) 147 H (75-99) mg/dL Phosphorus 2.2 L (2.5-4.5) mg/dL Albumin (3.5-5.0) g/dL 09/27/18 09/27/18 09/27/18 Range/Units 20:58 22:38 23:56 RBC 3.65 L (4.30-5.90) m/uL Hgb 11.3 L (13.0-17.5) gm/dL Hct 36.0 L (39.0-53.0) % Neutrophils # 8.1 H (1.3-7.7) k/uL Potassium (3.5-5.1) mmol/L Carbon Dioxide (22-30) mmol/L BUN (9-20) mg/dL Creatinine (0.66-1.25) mg/dL Glucose (74-99) mg/dL POC Glucose (mg/dL) 150 H 189 H (75-99) mg/dL Phosphorus (2.5-4.5) mg/dL Albumin (3.5-5.0) g/dL 09/28/18 09/28/18 09/28/18 Range/Units 06:20 06:22 06:22 RBC 3.56 L (4.30-5.90) m/uL Hgb 11.0 L (13.0-17.5) gm/dL Hct 35.3 L (39.0-53.0) % Neutrophils # (1.3-7.7) k/uL Potassium 3.3 L (3.5-5.1) mmol/L Carbon Dioxide 34 H (22-30) mmol/L BUN 36 H (9-20) mg/dL Creatinine 1.36 H (0.66-1.25) mg/dL Glucose 239 H (74-99) mg/dL POC Glucose (mg/dL) 222 H (75-99) mg/dL Phosphorus (2.5-4.5) mg/dL Albumin 2.7 L (3.5-5.0) g/dL 09/28/18 09/28/18 Range/Units 11:29 12:19 RBC 3.64 L (4.30-5.90) m/uL Hgb 11.0 L (13.0-17.5) gm/dL Hct 35.5 L (39.0-53.0) % Neutrophils # 7.9 H (1.3-7.7) k/uL Potassium (3.5-5.1) mmol/L Carbon Dioxide (22-30) mmol/L BUN (9-20) mg/dL Creatinine (0.66-1.25) mg/dL Glucose (74-99) mg/dL POC Glucose (mg/dL) 223 H (75-99) mg/dL Phosphorus (2.5-4.5) mg/dL Albumin (3.5-5.0) g/dL <Ronny Osorio - Last Filed: 09/28/18 16:45> Subjective As above. Patient still with fairly significant nasogastric output. Denies pain. Some issues related to his Mustafa catheter today. We'll order repeat upper GI tomorrow to evaluate degree of duodenal obstruction. Continue TPN. Objective - Vital Signs Vital signs: Vital Signs Temp 97.1 F L 09/28/18 12:00 Pulse 82 09/28/18 12:00 Resp 20 09/28/18 12:00 BP 131/75 09/28/18 12:00 Pulse Ox 96 09/28/18 12:00 Intake & Output 09/27/18 09/28/18 09/28/18 18:59 06:59 18:59 Intake Total 460 18.675 80 Output Total 1955 500 Balance 460 -1936.325 -420 Weight 70.5 kg 70.5 kg Intake: Intake, IV Titration 18.675 Amount Diltiazem 125 mg In 18.675 Sodium Chloride 0.9% 100 ml @ 10 MG/HR 10 mls/hr IV .[id number] [facility] Rx#: [id number] Oral 460 80 Output: Gastric Drainage 1025 Urine 930 500 Other: Voiding Method Indwelling Catheter Indwelling Catheter Indwelling Catheter - Labs CBC & Chem 7: 09/28/18 12:19 09/28/18 06:22 Labs: Abnormal Lab Results - Last 24 Hours (Table) 09/27/18 09/27/18 09/27/18 Range/Units 16:34 18:13 20:58 RBC 3.53 L (4.30-5.90) m/uL Hgb 10.9 L (13.0-17.5) gm/dL Hct 34.6 L (39.0-53.0) % Neutrophils # 7.9 H (1.3-7.7) k/uL Potassium (3.5-5.1) mmol/L Carbon Dioxide (22-30) mmol/L BUN (9-20) mg/dL Creatinine (0.66-1.25) mg/dL Glucose (74-99) mg/dL POC Glucose (mg/dL) 147 H 150 H (75-99) mg/dL Albumin (3.5-5.0) g/dL 09/27/18 09/27/18 09/28/18 Range/Units 22:38 23:56 06:20 RBC 3.65 L (4.30-5.90) m/uL Hgb 11.3 L (13.0-17.5) gm/dL Hct 36.0 L (39.0-53.0) % Neutrophils # 8.1 H (1.3-7.7) k/uL Potassium (3.5-5.1) mmol/L Carbon Dioxide (22-30) mmol/L BUN (9-20) mg/dL Creatinine (0.66-1.25) mg/dL Glucose (74-99) mg/dL POC Glucose (mg/dL) 189 H 222 H (75-99) mg/dL Albumin (3.5-5.0) g/dL 09/28/18 09/28/1819 Range/Units 06:22 06:22 11:29 RBC 3.56 L (4.30-5.90) m/uL Hgb 11.0 L (13.0-17.5) gm/dL Hct 35.3 L (39.0-53.0) % Neutrophils # (1.3-7.7) k/uL Potassium 3.3 L (3.5-5.1) mmol/L Carbon Dioxide 34 H (22-30) mmol/L BUN 36 H (9-20) mg/dL Creatinine 1.36 H (0.66-1.25) mg/dL Glucose 239 H (74-99) mg/dL POC Glucose (mg/dL) 223 H (75-99) mg/dL Albumin 2.7 L (3.5-5.0) g/dL 09/28/18 09/28/18 Range/Units 12:19 16:06 RBC 3.64 L (4.30-5.90) m/uL Hgb 11.0 L (13.0-17.5) gm/dL Hct 35.5 L (39.0-53.0) % Neutrophils # 7.9 H (1.3-7.7) k/uL Potassium (3.5-5.1) mmol/L Carbon Dioxide (22-30) mmol/L BUN (9-20) mg/dL Creatinine (0.66-1.25) mg/dL Glucose (74-99) mg/dL POC Glucose (mg/dL) 222 H (75-99) mg/dL Albumin (3.5-5.0) g/dL Assessment and Plan (1) Nausea & vomiting Current Visit: Yes Status: Acute Code(s): R11.2 - NAUSEA WITH VOMITING, UNSPECIFIED SNOMED Code(s): 69314339
--- NOTE | 2018-09-28 14:52 | P.GSCN ---
History of Present Illness Consult date: 09/28/18 History of present illness: 83 yo male in the hospital with a gi bleed, retroperitneal bleed He had some secondary arf due to blood loss It is improving He has had a reynolds due to immobility and to monitor I&O but it has been leaking It was changed and still is leaking He was voiding ok prior to this. After discussion with the nurse it sounds as if the catheter was never totally in the bladder. He now has a condom catheter. Review of Systems - Constitutional Reports chronic pain, Reports weakness - Cardiovascular Reports shortness of breath - Genitourinary Reports as per HPI Past Medical History Past Medical History: Diabetes Mellitus, Hyperlipidemia, Prostate Disorder Additional Past Medical History / Comment(s): BACK PAIN. LEG PAIN. brochitis, sinusitis, BPH, anxiety. occ constipation,hx retroperitonel bleed History of Any Multi-Drug Resistant Organisms: None Reported Past Surgical History: Joint Replacement, Orthopedic Surgery Additional Past Surgical History / Comment(s): BILATERAL KNEE REPLACEMENTS. BILATERAL CARPAL TUNNEL.ALECIA CATARACTS Past Anesthesia/Blood Transfusion Reactions: No Reported Reaction Smoking Status: Current some day smoker - Past Family History Mother Family Medical History: Cancer Additional Family Medical History / Comment(s): DJD, SCOLIOSIS, BREAST CANCER AGE 95 AT AGE 96 Father Additional Family Medical History / Comment(s): AT AGE 90-CARDIAC Medications and Allergies Home Medications Medication Instructions Recorded Confirmed Type Aspirin [Adult Low Dose Aspirin EC] 81 mg PO HS 11/06/15 09/22/18 History Cholecalciferol [Vitamin D3] 1,000 unit PO DAILY 11/06/15 09/22/18 History EPINEPHrine (Auto Inject) [Epipen] 1 dose IM DAILY PRN 11/06/15 09/22/18 History Finasteride 5 mg PO HS 11/06/15 09/22/18 History Multivitamins, Thera [Multivitamin] 1 tab PO DAILY 11/06/15 09/22/18 History Simvastatin 20 mg PO HS 11/06/15 09/22/18 History metFORMIN HCL 1,000 mg PO HS 11/06/15 09/22/18 History metFORMIN HCL 500 mg PO QAM 11/06/15 09/22/18 History Cephalexin [Keflex] 500 mg PO Q6H 09/11/18 09/22/18 History Allergies Allergy/AdvReac Type Severity Reaction Status Date / Time YELLOW JACKET VENOM Allergy Swelling Uncoded 09/22/18 16:07 Surgical - Exam Vital Signs Temp Pulse Resp BP Pulse Ox 97.7 F 101 H 16 97/65 90 L 09/22/18 16:04 09/22/18 16:04 09/22/18 16:04 09/22/18 16:04 09/22/18 16:04 - General well developed, well nourished, moderate distress - Eyes PERRL - ENT no hearing loss - Neck no masses - Respiratory oxygen, sob - Cardiovascular Rhythm: regular - Abdomen Abdomen: soft, non tender - Genitourinary condom cath with clear yellow urine. NOrmal testes and epididymes. - Integumentary no rash, no growths - Neurologic normal coordination, normal sensation - Musculoskeletal normal posture - Psychiatric oriented to time, oriented to person, oriented to place, speech is normal, memory intact Results - Labs 09/28/18 12:19 09/28/18 06:22 Abnormal Lab Results - Last 24 Hours (Table) 09/27/18 09/27/18 09/27/18 Range/Units 08:20 16:34 18:13 RBC 3.53 L (4.30-5.90) m/uL Hgb 10.9 L (13.0-17.5) gm/dL Hct 34.6 L (39.0-53.0) % Neutrophils # 7.9 H (1.3-7.7) k/uL Potassium (3.5-5.1) mmol/L Carbon Dioxide (22-30) mmol/L BUN (9-20) mg/dL Creatinine (0.66-1.25) mg/dL Glucose (74-99) mg/dL POC Glucose (mg/dL) 147 H (75-99) mg/dL Phosphorus 2.2 L (2.5-4.5) mg/dL Albumin (3.5-5.0) g/dL 09/27/18 09/27/18 09/27/18 Range/Units 20:58 22:38 23:56 RBC 3.65 L (4.30-5.90) m/uL Hgb 11.3 L (13.0-17.5) gm/dL Hct 36.0 L (39.0-53.0) % Neutrophils # 8.1 H (1.3-7.7) k/uL Potassium (3.5-5.1) mmol/L Carbon Dioxide (22-30) mmol/L BUN (9-20) mg/dL Creatinine (0.66-1.25) mg/dL Glucose (74-99) mg/dL POC Glucose (mg/dL) 150 H 189 H (75-99) mg/dL Phosphorus (2.5-4.5) mg/dL Albumin (3.5-5.0) g/dL 09/28/18 09/28/18 09/28/18 Range/Units 06:20 06:22 06:22 RBC 3.56 L (4.30-5.90) m/uL Hgb 11.0 L (13.0-17.5) gm/dL Hct 35.3 L (39.0-53.0) % Neutrophils # (1.3-7.7) k/uL Potassium 3.3 L (3.5-5.1) mmol/L Carbon Dioxide 34 H (22-30) mmol/L BUN 36 H (9-20) mg/dL Creatinine 1.36 H (0.66-1.25) mg/dL Glucose 239 H (74-99) mg/dL POC Glucose (mg/dL) 222 H (75-99) mg/dL Phosphorus (2.5-4.5) mg/dL Albumin 2.7 L (3.5-5.0) g/dL 09/28/18 09/28/18 Range/Units 11:29 12:19 RBC 3.64 L (4.30-5.90) m/uL Hgb 11.0 L (13.0-17.5) gm/dL Hct 35.5 L (39.0-53.0) % Neutrophils # 7.9 H (1.3-7.7) k/uL Potassium (3.5-5.1) mmol/L Carbon Dioxide (22-30) mmol/L BUN (9-20) mg/dL Creatinine (0.66-1.25) mg/dL Glucose (74-99) mg/dL POC Glucose (mg/dL) 223 H (75-99) mg/dL Phosphorus (2.5-4.5) mg/dL Albumin (3.5-5.0) g/dL Diabetes panel 09/27/18 09/28/18 Range/Units 08:20 06:22 Sodium 141 (137-145) mmol/L Potassium 3.3 L (3.5-5.1) mmol/L Chloride 104 (98-107) mmol/L Carbon Dioxide 34 H (22-30) mmol/L BUN 36 H (9-20) mg/dL Creatinine 1.36 H (0.66-1.25) mg/dL Glucose 239 H (74-99) mg/dL Calcium 9.2 (8.4-10.2) mg/dL Albumin 2.7 L (3.5-5.0) g/dL Triglycerides 126 (<150) mg/dL Calcium panel 09/27/18 09/28/18 Range/Units 08:20 06:22 Calcium 9.2 (8.4-10.2) mg/dL Ionized Calcium Lauren 5.2 (4.5-5.3) mg/dL Phosphorus 2.2 L 2.8 (2.5-4.5) mg/dL Albumin 2.7 L (3.5-5.0) g/dL Pituitary panel 09/28/18 Range/Units 06:22 Sodium 141 (137-145) mmol/L Potassium 3.3 L (3.5-5.1) mmol/L Chloride 104 (98-107) mmol/L Carbon Dioxide 34 H (22-30) mmol/L BUN 36 H (9-20) mg/dL Creatinine 1.36 H (0.66-1.25) mg/dL Glucose 239 H (74-99) mg/dL Calcium 9.2 (8.4-10.2) mg/dL Adrenal panel 09/28/18 Range/Units 06:22 Sodium 141 (137-145) mmol/L Potassium 3.3 L (3.5-5.1) mmol/L Chloride 104 (98-107) mmol/L Carbon Dioxide 34 H (22-30) mmol/L BUN 36 H (9-20) mg/dL Creatinine 1.36 H (0.66-1.25) mg/dL Glucose 239 H (74-99) mg/dL Calcium 9.2 (8.4-10.2) mg/dL Albumin 2.7 L (3.5-5.0) g/dL Assessment and Plan Assessment: Impression. Inconitnence around catheter due to misposition. Gi bleed Recommend: replace the exdwelling catheter with a 16 coude Nurse instructed in cath placement If she cant she will contact me.
[2018-09-28 16:08] LABS: Glucose,Whole Blood 222 mg/dL (75-99)
[2018-09-28 19:21] LABS: Basophils % (A) 0 %; Eosinophils # (A) 0.3 k/uL (0-0.7); Eosinophils % (A) 4 %; HCT 36.2 % (39.0-53.0); HGB 11.3 gm/dL (13.0-17.5); Hypochromasia Slight; Lymphocytes % (A) 11 %; MCHC 31.3 g/dL (31.0-37.0); MCV 99.2 fL (80.0-100.0); Mean Platelet Volume 7.4; Monocytes # (A) 0.5 k/uL (0-1.0); Monocytes % (A) 5 %; Neutrophils % (A) 79 %; Platelet Count 267 k/uL (150-450); RBC 3.65 m/uL (4.30-5.90); RDW 13.3 % (11.5-15.5); WBC 8.9 k/uL (3.8-10.6)
[2018-09-28] MEDS: DEXTROSE 5% IN WATER 1,000 ML with POTASSIUM CHLORIDE 40 MEQ IV SCH (22:02)
[2018-09-28] MEDS: FAT EMULSION 20% 250 ML in EMPTY BAG 1 BAG IV SCH (22:02)
[2018-09-28] MEDS ORDERED: 1: MVI, ADULT NO.4 WITH VIT K 10 ML, TRACE (CONC-1ML/DOSE) 1 ML in AMINO ACID 5%-D15W+LY IV SCH ×3 (22:30)
[2018-09-28] MEDS: ATORVASTATIN 10 MG TAB PO SCH (23:11)
[2018-09-28] MEDS: FINASTERIDE 5 MG TAB PO SCH (23:12)
[2018-09-28 23:55] LABS: Basophils % (A) 0 %; Eosinophils # (A) 0.4 k/uL (0-0.7); Eosinophils % (A) 4 %; HCT 35.4 % (39.0-53.0); HGB 11.4 gm/dL (13.0-17.5); Lymphocytes % (A) 11 %; MCH 31.2 pg (25.0-35.0); MCHC 32.1 g/dL (31.0-37.0); MCV 97.4 fL (80.0-100.0); Mean Platelet Volume 7.8; Monocytes # (A) 0.5 k/uL (0-1.0); Monocytes % (A) 5 %; Neutrophils # (A) 6.6 k/uL (1.3-7.7); Neutrophils % (A) 77 %; Platelet Count 253 k/uL (150-450); RBC 3.64 m/uL (4.30-5.90); RDW 13.4 % (11.5-15.5); WBC 8.6 k/uL (3.8-10.6)
[2018-09-29] LABS: Glucose,Whole Blood 304 mg/dL (75-99)
[2018-09-29] MEDS: INSULIN ASPART (NovoLOG) 100 UNIT/ML VIAL SQ SCH ×4 (00:42→18:52)
[2018-09-29] MEDS: DILTIAZEM 125 MG in SODIUM CHLORIDE 0.9% 100 ML IV SCH ×2 (04:28→12:53)
[2018-09-29 06:13] LABS: Glucose,Whole Blood 302 mg/dL (75-99)
[2018-09-29 06:15] LABS: Basophils % (A) 0 %; Eosinophils # (A) 0.3 k/uL (0-0.7); Eosinophils % (A) 4 %; HCT 34.7 % (39.0-53.0); HGB 11.1 gm/dL (13.0-17.5); Hypochromasia Slight; Lymphocytes # (A) 0.9 k/uL (1.0-4.8); Lymphocytes % (A) 12 %; MCH 31.5 pg (25.0-35.0); MCHC 32.1 g/dL (31.0-37.0); MCV 98.1 fL (80.0-100.0); Monocytes # (A) 0.4 k/uL (0-1.0); Monocytes % (A) 5 %; Neutrophils # (A) 5.9 k/uL (1.3-7.7); Neutrophils % (A) 77 %; Platelet Count 257 k/uL (150-450); RBC 3.54 m/uL (4.30-5.90); RDW 13.3 % (11.5-15.5); WBC 7.6 k/uL (3.8-10.6)
[2018-09-29 06:29] LABS: Magnesium 1.7 mg/dL (1.6-2.3); Potassium 3.6 mmol/L (3.5-5.1)
--- NOTE | 2018-09-29 07:23 | P.PCN ---
Date of Procedure: 09/28/18 Preoperative Diagnosis: Difficult catheter placement Postoperative Diagnosis: Same Procedure(s) Performed: Difficult placement of catheter Pathology: none sent Condition: stable Disposition: floor Indications for Procedure: The patient is in the hospital with a GI bleed. He has had an indwelling catheter. He is leaking around the catheter that was placed in the emergency room and replaced on the floor. I will attempt to place a catheter Description of Procedure: The patient is prepped and draped sterilely. A 16 coud-tip catheters passed up through the urethra. It is tight and difficult to pass through the prostate but I eventually feels a 5 in the bladder. The balloon is insufflated and I feel that it is pulled back against the bladder neck. I then irrigated with a Chantell syringe seems to irrigate freely. We will see how it functions.
--- NOTE | 2018-09-29 07:24 | P.PN ---
Subjective Progress Note Date: 09/29/18 The patient was leaking around the catheter again last night. I have the nursing staff attempted irrigated and it did not irrigate freely. I thus had the catheter removed. He seems to be urinating adequately with a condom cath. He will need a cystoscope at some point in time to see if there is a false passage or something in the bladder that could be causing the problem. This can be done after his medical problems have cleared provided he empties his bladder adequately in the meanwhile. Objective - Vital Signs Vital signs: Vital Signs Temp 98 F 09/29/18 04:21 Pulse 81 09/29/18 04:21 Resp 20 09/29/18 04:21 BP 125/66 09/29/18 04:21 Pulse Ox 93 L 09/29/18 04:21 Intake & Output 09/28/18 09/29/18 09/29/18 18:59 06:59 18:59 Intake Total 80 110.333 Output Total 1400 1800 Balance -1320 -1689.667 Weight 70.5 kg Intake: Intake, IV Titration 110.333 Amount Diltiazem 125 mg In 110.333 Sodium Chloride 0.9% 100 ml @ 10 MG/HR 10 mls/hr IV .[id number] [facility] Rx#: [id number] Oral 80 Output: Gastric Drainage 900 1400 Urine 500 400 Other: Voiding Method Indwelling Catheter Diaper - Labs CBC & Chem 7: 09/29/18 05:42 09/29/18 05:42 Labs: Abnormal Lab Results - Last 24 Hours (Table) 09/28/18 09/28/18 09/28/18 Range/Units 11:29 12:19 16:06 RBC 3.64 L (4.30-5.90) m/uL Hgb 11.0 L (13.0-17.5) gm/dL Hct 35.5 L (39.0-53.0) % Neutrophils # 7.9 H (1.3-7.7) k/uL Lymphocytes # (1.0-4.8) k/uL Carbon Dioxide (22-30) mmol/L BUN (9-20) mg/dL Glucose (74-99) mg/dL POC Glucose (mg/dL) 223 H 222 H (75-99) mg/dL 09/28/18 09/28/18 09/28/18 Range/Units 18:36 23:28 23:59 RBC 3.65 L 3.64 L (4.30-5.90) m/uL Hgb 11.3 L 11.4 L (13.0-17.5) gm/dL Hct 36.2 L 35.4 L (39.0-53.0) % Neutrophils # (1.3-7.7) k/uL Lymphocytes # (1.0-4.8) k/uL Carbon Dioxide (22-30) mmol/L BUN (9-20) mg/dL Glucose (74-99) mg/dL POC Glucose (mg/dL) 304 H (75-99) mg/dL 09/29/18 09/29/18 09/29/18 Range/Units 05:42 05:42 06:12 RBC 3.54 L (4.30-5.90) m/uL Hgb 11.1 L (13.0-17.5) gm/dL Hct 34.7 L (39.0-53.0) % Neutrophils # (1.3-7.7) k/uL Lymphocytes # 0.9 L (1.0-4.8) k/uL Carbon Dioxide 34 H (22-30) mmol/L BUN 38 H (9-20) mg/dL Glucose 284 H (74-99) mg/dL POC Glucose (mg/dL) 302 H (75-99) mg/dL
--- NOTE | 2018-09-29 10:35 | FL ---
EXAMINATION TYPE: FL UGI DATE OF EXAM: 09/29/2018 COMPARISON: 09/24/2018 HISTORY: High-grade obstruction duodenum TECHNIQUE: A single contrast UGI study is performed with thin barium. FINDINGS: 6 ounces of barium was administered through the nasogastric tube. Fluoroscopy and overhead radiograp hs were obtained. Tyre Finisher And Examiner view: Nasogastric tube is in the left upper quadrant of the abdomen. Small amount of fecal debr is is through the colon. Small amount contrast may be within the colon with the debris. No significan t fecal retention is evident. Barium readily empties the first and second portions of the duodenum. A duodenal diverticulum appears to be present in the distal second portion of the duodenum. Observation including right lateral decubitus views were obtained with fluoroscopy over the course of 20 minutes. No passage of contrast beyond the distal second portion of the duodenum is evident. Over head radiograph obtained completion of the procedure and no contrast passage. Report was called to Dr Kinza Osorio by Dr. Leroy. Images: 18 Fluoroscopy time: 1.17 minutes IMPRESSIONS: 1. Duodenal obstruction, distal second portion, complete. Report was called to Dr. Osorio at the time of the examination. 2. 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
[2018-09-29] MEDS ORDERED: POTASSIUM CHLORIDE 20 MEQ in WATER FOR INJECTION 1 100ML.BAG IVPB SCH (11:00)
--- NOTE | 2018-09-29 11:05 | P.PN ---
Subjective Patient resting in bed complains of increasing weakness.. Patient had upper GI shows complete obstruction of second section of duodenum. Continues with NG. Had consultation with urology having difficulty with Mustafa catheter Objective - Vital Signs Vital signs: Vital Signs Temp 98 F 09/29/18 04:21 Pulse 81 09/29/18 04:21 Resp 20 09/29/18 04:21 BP 125/66 09/29/18 04:21 Pulse Ox 93 L 09/29/18 04:21 Intake & Output 09/28/18 09/29/18 09/29/18 18:59 06:59 18:59 Intake Total 80 110.333 0 Output Total 1400 1800 Balance -1320 -1689.667 0 Weight 70.5 kg Intake: Intake, IV Titration 110.333 Amount Diltiazem 125 mg In 110.333 Sodium Chloride 0.9% 100 ml @ 10 MG/HR 10 mls/hr IV .[id number] [facility] Rx#: [id number] Oral 80 0 Output: Gastric Drainage 900 1400 Urine 500 400 Other: Voiding Method Indwelling Catheter Diaper - Constitutional General appearance: Present: mild distress - EENT EENT Comment(s): Nasogastric tube in place Eyes: Present: PERRLA Ears: bilateral: normal - Neck Neck: Present: normal ROM - Respiratory Respiratory: bilateral: CTA - Cardiovascular Rhythm: regular - Gastrointestinal General gastrointestinal: Present: decreased bowel sounds, soft - Genitourinary Genitourinary Comment(s): Condom catheter placed - Integumentary Integumentary: Present: normal - Neurologic Neurologic: Present: CNII-XII intact - Musculoskeletal Musculoskeletal: Present: generalized weakness - Psychiatric Psychiatric: Present: A&O x's 3, appropriate affect, intact judgment & insight (Upper GI completed obstruction second portion of duodenum) - Labs CBC & Chem 7: 09/29/18 05:42 09/29/18 05:42 Labs: Abnormal Lab Results - Last 24 Hours (Table) 09/28/18 09/28/18 09/28/18 Range/Units 11:29 12:19 16:06 RBC 3.64 L (4.30-5.90) m/uL Hgb 11.0 L (13.0-17.5) gm/dL Hct 35.5 L (39.0-53.0) % Neutrophils # 7.9 H (1.3-7.7) k/uL Lymphocytes # (1.0-4.8) k/uL Carbon Dioxide (22-30) mmol/L BUN (9-20) mg/dL Glucose (74-99) mg/dL POC Glucose (mg/dL) 223 H 222 H (75-99) mg/dL 09/28/18 09/28/18 09/28/18 Range/Units 18:36 23:28 23:59 RBC 3.65 L 3.64 L (4.30-5.90) m/uL Hgb 11.3 L 11.4 L (13.0-17.5) gm/dL Hct 36.2 L 35.4 L (39.0-53.0) % Neutrophils # (1.3-7.7) k/uL Lymphocytes # (1.0-4.8) k/uL Carbon Dioxide (22-30) mmol/L BUN (9-20) mg/dL Glucose (74-99) mg/dL POC Glucose (mg/dL) 304 H (75-99) mg/dL 09/29/18 09/29/18 09/29/18 Range/Units 05:42 05:42 06:12 RBC 3.54 L (4.30-5.90) m/uL Hgb 11.1 L (13.0-17.5) gm/dL Hct 34.7 L (39.0-53.0) % Neutrophils # (1.3-7.7) k/uL Lymphocytes # 0.9 L (1.0-4.8) k/uL Carbon Dioxide 34 H (22-30) mmol/L BUN 38 H (9-20) mg/dL Glucose 284 H (74-99) mg/dL POC Glucose (mg/dL) 302 H (75-99) mg/dL Assessment and Plan Plan: Assessment Acute renal failure Dehydration Weakness Small bowel obstruction duodenum with NG Paroxysmal atrial flutter Leukocytosis resolved Started on TPN History of peritoneal hemorrhage Diabetes type 2 Hyperlipidemia BPH with Mustafa Plan Continue consultation with surgery nephrology and cardiology
[2018-09-29 11:52] LABS: Glucose,Whole Blood 280 mg/dL (75-99)
[2018-09-29 12:00] LABS: Basophils % (A) 0 %; Eosinophils # (A) 0.3 k/uL (0-0.7); Eosinophils % (A) 3 %; HCT 37.4 % (39.0-53.0); HGB 11.8 gm/dL (13.0-17.5); Hypochromasia Slight; Lymphocytes # (A) 0.9 k/uL (1.0-4.8); Lymphocytes % (A) 9 %; MCHC 31.5 g/dL (31.0-37.0); MCV 98.5 fL (80.0-100.0); Mean Platelet Volume 7.9; Monocytes # (A) 0.5 k/uL (0-1.0); Monocytes % (A) 5 %; Neutrophils # (A) 7.8 k/uL (1.3-7.7); Neutrophils % (A) 82 %; Platelet Count 251 k/uL (150-450); RDW 13.3 % (11.5-15.5); WBC 9.5 k/uL (3.8-10.6)
[2018-09-29] MEDS: PANTOPRAZOLE 40 MG/10 ML VIAL IVP SCH ×2 (12:25→21:10)
[2018-09-29] MEDS: MAGNESIUM SULFATE-D5W PMX 1 GM in DEXTROSE/WATER 1 100ML.BAG IVPB SCH ×2 (12:26→14:21)
[2018-09-29] MEDS: FLECAINIDE 50 MG TAB PO SCH ×2 (12:27→21:36)
--- NOTE | 2018-09-29 14:17 | P.PN ---
<Patti Madrigal A - Last Filed: 09/29/18 14:14> Subjective Progress Note Date: 09/29/18 CHIEF COMPLAINT: Intractable vomiting HISTORY OF PRESENT ILLNESS: Patient examined at the bedside. Spouse and daughter present. Patient denies abdominal pain. NG remain in place. Patient tolerating ice chips. TPN is infusing. Upper GI series this morning revealed complete duodenal obstruction. PHYSICAL EXAM: VITAL SIGNS: Currently stable. GENERAL: Well-developed in no acute distress. HEENT: NG tube intact with bilious drainage. No sclera icterus. Extraocular movements grossly intact. Moist buccal mucosa. Head is atraumatic, normocephalic. Hears conversational speech. No nasal drainage. NECK: Supple without lymphadenopathy. CHEST: Non-labored respirations and equal bilateral excursions. CARDIOVASCULAR: Regular rate with regular rhythm. Palpable 2+ radial pulses. ABDOMEN: Soft. Nondistended. Nontender. MUSCULOSKELETAL: No clubbing, cyanosis or edema. NEUROLOGIC: No focal or lateralizing signs. Cranial nerves II through XII grossly intact. PSYCH: Appropriate affect. Alert and oriented to person, place and time. SKIN: Well perfused. Good skin turgor. ASSESSMENT: 1. Nausea and vomiting 2. Retroperitoneal hematoma 3. Complete duodenal obstruction PLAN: 1. Continue NG tube 2. Ice chips and popsicles only 3. Continue TPN 4. Patient to undergo EGD tomorrow with Dr. Osorio Nurse practitioner note has been reviewed by physician. Signing provider agrees with the documented findings, assessment, and plan of care. Objective - Vital Signs Vital signs: Vital Signs Temp 98 F 09/29/18 04:21 Pulse 81 09/29/18 04:21 Resp 20 09/29/18 04:21 BP 125/66 09/29/18 04:21 Pulse Ox 93 L 09/29/18 04:21 Intake & Output 09/28/18 09/29/18 09/29/18 18:59 06:59 18:59 Intake Total 80 110.333 42.083 Output Total 1400 1800 Balance -1320 -1689.667 42.083 Weight 70.5 kg 65.227 kg Intake: Intake, IV Titration 110.333 42.083 Amount Diltiazem 125 mg In 110.333 42.083 Sodium Chloride 0.9% 100 ml @ 10 MG/HR 10 mls/hr IV .[id number] [facility] Rx#: [id number] Oral 80 0 Output: Gastric Drainage 900 1400 Urine 500 400 Other: Voiding Method Indwelling Catheter Diaper - Labs CBC & Chem 7: 09/29/18 11:28 09/29/18 05:42 Labs: Abnormal Lab Results - Last 24 Hours (Table) 09/28/18 09/28/18 09/28/18 Range/Units 16:06 18:36 23:28 RBC 3.65 L 3.64 L (4.30-5.90) m/uL Hgb 11.3 L 11.4 L (13.0-17.5) gm/dL Hct 36.2 L 35.4 L (39.0-53.0) % Neutrophils # (1.3-7.7) k/uL Lymphocytes # (1.0-4.8) k/uL Carbon Dioxide (22-30) mmol/L BUN (9-20) mg/dL Glucose (74-99) mg/dL POC Glucose (mg/dL) 222 H (75-99) mg/dL 09/28/18 09/29/18 09/29/18 Range/Units 23:59 05:42 05:42 RBC 3.54 L (4.30-5.90) m/uL Hgb 11.1 L (13.0-17.5) gm/dL Hct 34.7 L (39.0-53.0) % Neutrophils # (1.3-7.7) k/uL Lymphocytes # 0.9 L (1.0-4.8) k/uL Carbon Dioxide 34 H (22-30) mmol/L BUN 38 H (9-20) mg/dL Glucose 284 H (74-99) mg/dL POC Glucose (mg/dL) 304 H (75-99) mg/dL 09/29/18 09/29/18 09/29/18 Range/Units 06:12 11:28 11:50 RBC 3.80 L (4.30-5.90) m/uL Hgb 11.8 L (13.0-17.5) gm/dL Hct 37.4 L (39.0-53.0) % Neutrophils # 7.8 H (1.3-7.7) k/uL Lymphocytes # 0.9 L (1.0-4.8) k/uL Carbon Dioxide (22-30) mmol/L BUN (9-20) mg/dL Glucose (74-99) mg/dL POC Glucose (mg/dL) 302 H 280 H (75-99) mg/dL <Ronny Osorio - Last Filed: 09/29/18 17:32> Subjective As above. Today's upper GI reviewed with Dr. Leroy. Patient still has obstruction of the duodenum in fact at this time contrast is not able to pass through that area. We'll proceed with upper endoscopy tomorrow. Continue TPN and nasogastric tube to suction. Objective - Vital Signs Vital signs: Vital Signs Temp 98 F 09/29/18 04:21 Pulse 81 09/29/18 04:21 Resp 20 09/29/18 04:21 BP 125/66 09/29/18 04:21 Pulse Ox 93 L 09/29/18 04:21 Intake & Output 09/28/18 09/29/18 09/29/18 18:59 06:59 18:59 Intake Total 80 110.333 42.083 Output Total 1400 1800 Balance -1320 -1689.667 42.083 Weight 70.5 kg 65.227 kg Intake: Intake, IV Titration 110.333 42.083 Amount Diltiazem 125 mg In 110.333 42.083 Sodium Chloride 0.9% 100 ml @ 10 MG/HR 10 mls/hr IV .[id number] [facility] Rx#: [id number] Oral 80 0 Output: Gastric Drainage 900 1400 Urine 500 400 Other: Voiding Method Indwelling Catheter Diaper - Labs CBC & Chem 7: 09/29/18 11:28 09/29/18 05:42 Labs: Abnormal Lab Results - Last 24 Hours (Table) 09/28/18 09/28/18 09/28/18 Range/Units 18:36 23:28 23:59 RBC 3.65 L 3.64 L (4.30-5.90) m/uL Hgb 11.3 L 11.4 L (13.0-17.5) gm/dL Hct 36.2 L 35.4 L (39.0-53.0) % Neutrophils # (1.3-7.7) k/uL Lymphocytes # (1.0-4.8) k/uL Carbon Dioxide (22-30) mmol/L BUN (9-20) mg/dL Glucose (74-99) mg/dL POC Glucose (mg/dL) 304 H (75-99) mg/dL 09/29/18 09/29/18 09/29/18 Range/Units 05:42 05:42 06:12 RBC 3.54 L (4.30-5.90) m/uL Hgb 11.1 L (13.0-17.5) gm/dL Hct 34.7 L (39.0-53.0) % Neutrophils # (1.3-7.7) k/uL Lymphocytes # 0.9 L (1.0-4.8) k/uL Carbon Dioxide 34 H (22-30) mmol/L BUN 38 H (9-20) mg/dL Glucose 284 H (74-99) mg/dL POC Glucose (mg/dL) 302 H (75-99) mg/dL 09/29/18 09/29/18 Range/Units 11:28 11:50 RBC 3.80 L (4.30-5.90) m/uL Hgb 11.8 L (13.0-17.5) gm/dL Hct 37.4 L (39.0-53.0) % Neutrophils # 7.8 H (1.3-7.7) k/uL Lymphocytes # 0.9 L (1.0-4.8) k/uL Carbon Dioxide (22-30) mmol/L BUN (9-20) mg/dL Glucose (74-99) mg/dL POC Glucose (mg/dL) 280 H (75-99) mg/dL Assessment and Plan (1) Nausea & vomiting Current Visit: Yes Status: Acute Code(s): R11.2 - NAUSEA WITH VOMITING, UNSPECIFIED SNOMED Code(s): 91455050
[2018-09-29] MEDS: 1: MVI, ADULT NO.4 WITH VIT K 10 ML, TRACE (CONC-1ML/DOSE) 1 ML, POTASSIUM CHLORIDE 20 M IV SCH ×5 (17:22)
[2018-09-29 18:08] LABS: Glucose,Whole Blood 212 mg/dL (75-99)
[2018-09-29 18:26] LABS: Basophils % (A) 0 %; Eosinophils # (A) 0.3 k/uL (0-0.7); Eosinophils % (A) 3 %; HCT 36.9 % (39.0-53.0); HGB 11.8 gm/dL (13.0-17.5); Lymphocytes # (A) 1.1 k/uL (1.0-4.8); Lymphocytes % (A) 13 %; MCH 31.3 pg (25.0-35.0); MCHC 32.1 g/dL (31.0-37.0); MCV 97.7 fL (80.0-100.0); Mean Platelet Volume 7.5; Monocytes # (A) 0.5 k/uL (0-1.0); Monocytes % (A) 5 %; Neutrophils # (A) 6.6 k/uL (1.3-7.7); Neutrophils % (A) 76 %; Platelet Count 276 k/uL (150-450); RBC 3.78 m/uL (4.30-5.90); RDW 13.4 % (11.5-15.5); WBC 8.7 k/uL (3.8-10.6)
[2018-09-29] MEDS: DEXTROSE 5% IN WATER 1,000 ML with POTASSIUM CHLORIDE 40 MEQ IV SCH (21:10)
[2018-09-29] MEDS: FAT EMULSION 20% 250 ML in EMPTY BAG 1 BAG IV SCH (21:10)
[2018-09-29] MEDS: FINASTERIDE 5 MG TAB PO SCH (21:36)
[2018-09-29] MEDS: ATORVASTATIN 10 MG TAB PO SCH (21:36)
[2018-09-29 23:36] LABS: Glucose,Whole Blood 295 mg/dL (75-99)
[2018-09-30] MEDS: INSULIN ASPART (NovoLOG) 100 UNIT/ML VIAL SQ SCH ×4 (00:11→18:52)
[2018-09-30 00:24] LABS: Basophils % (A) 0 %; Eosinophils # (A) 0.4 k/uL (0-0.7); Eosinophils % (A) 4 %; HCT 36.6 % (39.0-53.0); HGB 11.8 gm/dL (13.0-17.5); Lymphocytes # (A) 1.2 k/uL (1.0-4.8); Lymphocytes % (A) 14 %; MCH 31.3 pg (25.0-35.0); MCHC 32.2 g/dL (31.0-37.0); MCV 97.3 fL (80.0-100.0); Mean Platelet Volume 7.5; Monocytes # (A) 0.5 k/uL (0-1.0); Monocytes % (A) 6 %; Neutrophils # (A) 5.9 k/uL (1.3-7.7); Neutrophils % (A) 74 %; Platelet Count 271 k/uL (150-450); RBC 3.76 m/uL (4.30-5.90); RDW 13.3 % (11.5-15.5); WBC 8.1 k/uL (3.8-10.6)
[2018-09-30] MEDS: DILTIAZEM 125 MG in SODIUM CHLORIDE 0.9% 100 ML IV SCH (01:23)
[2018-09-30 06:36] LABS: Glucose,Whole Blood 278 mg/dL (75-99)
[2018-09-30 07:00] LABS: Calcium 9.1 mg/dL (8.4-10.2); Magnesium 2.1 mg/dL (1.6-2.3); Phosphorus 3.4 mg/dL (2.5-4.5); Potassium 4.3 mmol/L (3.5-5.1)
[2018-09-30] MEDS: FLECAINIDE 50 MG TAB PO SCH ×2 (07:50→22:43)
[2018-09-30] MEDS: 1: MVI, ADULT NO.4 WITH VIT K 10 ML, TRACE (CONC-1ML/DOSE) 1 ML, POTASSIUM CHLORIDE 20 M IV SCH ×17 (07:59→22:44)
[2018-09-30] MEDS: PANTOPRAZOLE 40 MG/10 ML VIAL IVP SCH ×3 (08:00→22:43)
[2018-09-30 11:25] LABS: Glucose,Whole Blood 255 mg/dL (75-99)
--- NOTE | 2018-09-30 11:32 | P.PN ---
Subjective Patient resting in bed continues NG to suction with large amount of biliary stomach contents. Had upper GI study yesterday show complete obstruction. Scheduled for EGD at [address] Osorio Objective - Vital Signs Vital signs: Vital Signs Temp 98.0 F 09/30/18 08:00 Pulse 80 09/30/18 08:00 Resp 20 09/30/18 08:00 BP 116/66 09/30/18 08:00 Pulse Ox 95 09/30/18 08:00 Intake & Output 09/29/18 09/30/18 09/30/18 18:59 06:59 18:59 Intake Total 472.083 Output Total 1750 1350 Balance -1277.917 -1350 Weight 65.227 kg Intake: IV 80 Diltiazem 125 mg In 80 Sodium Chloride 0.9% 100 ml @ 10 MG/HR 10 mls/hr IV .[id number] [facility] Rx#: [id number] Intake, IV Titration 292.083 Amount Diltiazem 125 mg In 42.083 Sodium Chloride 0.9% 100 ml @ 10 MG/HR 10 mls/hr IV .[id number] [facility] Rx#: [id number] Fat Emulsion 20% 250 ml 250 In Empty Bag 1 bag @ 21 mls/hr IV DAILY@1800 [facility] Rx#:[id number] Oral 100 Output: Gastric Drainage 1300 850 Urine 450 500 Other: Voiding Method Diaper Incontinent # Voids 0 - Constitutional General appearance: Present: mild distress - EENT Eyes: Present: PERRLA Ears: - Neck Neck: Present: normal ROM - Respiratory Respiratory: - Cardiovascular Rhythm: regular - Gastrointestinal General gastrointestinal: Present: decreased bowel sounds, soft - Integumentary Integumentary: Present: normal - Neurologic Neurologic: Present: CNII-XII intact - Musculoskeletal Musculoskeletal: Present: generalized weakness - Psychiatric Psychiatric: Present: A&O x's 3, appropriate affect, intact judgment & insight - Labs CBC & Chem 7: 09/30/18 00:00 09/30/18 05:56 Labs: Abnormal Lab Results - Last 24 Hours (Table) 09/29/18 09/29/18 09/29/18 Range/Units 11:28 11:50 17:49 RBC 3.80 L 3.78 L (4.30-5.90) m/uL Hgb 11.8 L 11.8 L (13.0-17.5) gm/dL Hct 37.4 L 36.9 L (39.0-53.0) % Neutrophils # 7.8 H (1.3-7.7) k/uL Lymphocytes # 0.9 L (1.0-4.8) k/uL Sodium (137-145) mmol/L Carbon Dioxide (22-30) mmol/L BUN (9-20) mg/dL Glucose (74-99) mg/dL POC Glucose (mg/dL) 280 H (75-99) mg/dL 09/29/18 09/29/18 09/30/18 Range/Units 18:04 23:35 00:00 RBC 3.76 L (4.30-5.90) m/uL Hgb 11.8 L (13.0-17.5) gm/dL Hct 36.6 L (39.0-53.0) % Neutrophils # (1.3-7.7) k/uL Lymphocytes # (1.0-4.8) k/uL Sodium (137-145) mmol/L Carbon Dioxide (22-30) mmol/L BUN (9-20) mg/dL Glucose (74-99) mg/dL POC Glucose (mg/dL) 212 H 295 H (75-99) mg/dL 09/30/18 09/30/18 09/30/18 Range/Units 05:56 06:32 11:24 RBC (4.30-5.90) m/uL Hgb (13.0-17.5) gm/dL Hct (39.0-53.0) % Neutrophils # (1.3-7.7) k/uL Lymphocytes # (1.0-4.8) k/uL Sodium 135 L (137-145) mmol/L Carbon Dioxide 31 H (22-30) mmol/L BUN 43 H (9-20) mg/dL Glucose 289 H (74-99) mg/dL POC Glucose (mg/dL) 278 H 255 H (75-99) mg/dL Assessment and Plan Plan: Assessment Acute renal failure secondary to vomiting duodenal bowel obstruction Weakness leukocytosis resolved History of peritoneal hemorrhage TPN started Mustafa catheter Diabetes type 2 Hyperlipidemia BPH Plan EGD 1:[address] Osorio
[2018-09-30] MEDS ORDERED: PROPOFOL 10 MG/ML 20 ML VIAL IV ONE (12:53)
[2018-09-30] MEDS ORDERED: LIDOCAINE 1% INJ 10MG/ML (20 ML MDV) ONE (12:53)
[2018-09-30] MEDS ORDERED: SODIUM CHLORIDE 0.9% 500 ML 500 ML IV ONE (12:57)
--- NOTE | 2018-09-30 13:26 | P.PCN ---
Date of Procedure: 09/30/18 Procedure(s) Performed: Preoperative Dx: Intractable vomiting, duodenal obstruction Postoperative Dx: Gastritis, small hiatal hernia Procedure: EGD with Bx Anesthesia: Sedation Endoscopist: Dr. Osorio Specimens: Antrum Endoscopic Procedure: The patient was on the endoscopy table in the left decubitus position. The Olympus gastroscope was inserted into the oropharynx and passed under direct visualization to the second portion of the duodenum. 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 The duodenum was not distensible. I could not visualize any mucosal abnormalities to suggest malignancy. Despite multiple attempts I could not advance the scope further distally. This appeared consistent with the upper GI findings of obstruction involving the distal second and third portion of the duodenum. No significant duodenitis was present. The pylorus was patent. There was mild gastritis present. A biopsy of the antrum took place. Retroflexion revealed a small hiatal hernia. The patient's esophagus appeared normal. The patient was then taken to the recovery room in stable condition per anesthesia guidelines. Recommendations: Continue nasogastric tube to suction. Etiology of the patient's obstruction still thought to be related to the large retroperitoneal hematoma. This should improve with conservative measures. Options of continued TPN with gastric decompression versus tertiary care referral will be discussed further with the family.
--- NOTE | 2018-09-30 14:29 | P.PN ---
Subjective Patient is seen in follow-up for acute kidney injury. Renal function continues to improve. He still has an NG tube in place. He underwent EGD this morning which revealed gastritis and a small hiatal hernia. Vital signs are stable. General: The patient appeared well nourished and normally developed. HEENT: Head exam is unremarkable. Neck is without jugular venous distension. NG tube noted. LUNGS: Lungs are clear to auscultation and percussion. Breath sounds decreased. HEART: Rate and Rhythm are regular. First and second heart sounds normal. No murmurs, rubs or gallops. ABDOMEN: Abdominal exam reveals normal bowel sounds. Non-tender and non- distended. No evidence of peritonitis. EXTREMITITES: No clubbing, cyanosis, or edema. Objective - Vital Signs Vital signs: Vital Signs Temp 97.9 F 09/30/18 12:00 Pulse 81 09/30/18 12:00 Resp 20 09/30/18 12:00 BP 123/68 09/30/18 12:00 Pulse Ox 93 L 09/30/18 12:00 Intake & Output 09/29/18 09/30/18 09/30/18 18:59 06:59 18:59 Intake Total 472.083 700 Output Total 1750 1350 300 Balance -1277.917 -1350 400 Weight 65.227 kg Intake: IV 80 100 Diltiazem 125 mg In 80 Sodium Chloride 0.9% 100 ml @ 10 MG/HR 10 mls/hr IV .[id number] [facility] Rx#: [id number] Intake, IV Titration 292.083 600 Amount Diltiazem 125 mg In 42.083 Sodium Chloride 0.9% 100 ml @ 10 MG/HR 10 mls/hr IV .[id number] [facility] Rx#: [id number] Fat Emulsion 20% 250 ml 250 In Empty Bag 1 bag @ 21 mls/hr IV DAILY@1800 [facility] Rx#:[id number] Potassium Chloride 20 meq 600 Magnesium Sulfate gm 1 gm Sodium Chloride 4Meq/ ml Vial 24 meq In Amino Acid 5%-D15w+Lytes*E* 1, 000 ml @ 75 mls/hr IV .BY DURATION [facility] Rx#: [id number] Oral 100 Output: Gastric Drainage 1300 850 300 Urine 450 500 Other: Voiding Method Diaper Incontinent # Voids 0 - Labs CBC & Chem 7: 09/30/18 00:00 09/30/18 05:56 Labs: Abnormal Lab Results - Last 24 Hours (Table) 09/29/18 09/29/18 09/29/18 Range/Units 17:49 18:04 23:35 RBC 3.78 L (4.30-5.90) m/uL Hgb 11.8 L (13.0-17.5) gm/dL Hct 36.9 L (39.0-53.0) % Sodium (137-145) mmol/L Carbon Dioxide (22-30) mmol/L BUN (9-20) mg/dL Glucose (74-99) mg/dL POC Glucose (mg/dL) 212 H 295 H (75-99) mg/dL 09/30/18 09/30/18 09/30/18 Range/Units 00:00 05:56 06:32 RBC 3.76 L (4.30-5.90) m/uL Hgb 11.8 L (13.0-17.5) gm/dL Hct 36.6 L (39.0-53.0) % Sodium 135 L (137-145) mmol/L Carbon Dioxide 31 H (22-30) mmol/L BUN 43 H (9-20) mg/dL Glucose 289 H (74-99) mg/dL POC Glucose (mg/dL) 278 H (75-99) mg/dL 09/30/18 Range/Units 11:24 RBC (4.30-5.90) m/uL Hgb (13.0-17.5) gm/dL Hct (39.0-53.0) % Sodium (137-145) mmol/L Carbon Dioxide (22-30) mmol/L BUN (9-20) mg/dL Glucose (74-99) mg/dL POC Glucose (mg/dL) 255 H (75-99) mg/dL Assessment and Plan Plan: Assessment: 1. Acute kidney injury secondary to ATN secondary to intravascular volume depletion from vomiting. Creatinine 5.1 and on admission and is 1.21 today. Abdominal ultrasound revealed no evidence of hydronephrosis. Baseline creatinine near 1. 2. Metabolic alkalosis secondary to hydrogen ion losses from vomiting. The patient was also hypochloremic and hypokalemic which will maintain alkalosis by impairing bicarb secretion. Better. 3. Hypokalemia from poor oral intake. Improved post replacement. 4. Diabetes mellitus. 5. Recent retroperitoneal hemorrhage. Hemoglobin is stable. 6. Small bowel obstruction. He currently has an NG tube in place. Surgery following. EGD this morning revealed gastritis and small hiatal hernia. Curr ently receiving TPN. 7. Atrial fibrillation maintained on Cardizem drip. Plan: Discontinue D5W as his sodium is down to 135. Maintain TPN for now. Avoid nephrotoxins. Repeat electrolytes in the morning.
[2018-09-30 16:37] LABS: Glucose,Whole Blood 267 mg/dL (75-99)
[2018-09-30 18:51] LABS: Glucose,Whole Blood 290 mg/dL (75-99)
[2018-09-30] MEDS: FAT EMULSION 20% 250 ML in EMPTY BAG 1 BAG IV SCH (18:52)
[2018-09-30] MEDS ORDERED: 1: MVI, ADULT NO.4 WITH VIT K 10 ML, TRACE (CONC-1ML/DOSE) 1 ML, POTASSIUM CHLORIDE 20 M IV SCH ×6 (21:00)
[2018-09-30] MEDS: FINASTERIDE 5 MG TAB PO SCH (22:43)
[2018-09-30] MEDS: ATORVASTATIN 10 MG TAB PO SCH (22:43)
[2018-09-30 23:57] LABS: Glucose,Whole Blood 263 mg/dL (75-99)
[2018-10-01] MEDS: INSULIN ASPART (NovoLOG) 100 UNIT/ML VIAL SQ SCH ×4 (00:30→18:10)
[2018-10-01 06:09] LABS: Glucose,Whole Blood 308 mg/dL (75-99)
[2018-10-01] MEDS: FINASTERIDE 5 MG TAB PO SCH ×2 (06:38→20:43)
[2018-10-01] MEDS: FLECAINIDE 50 MG TAB PO SCH ×3 (06:38→20:43)
[2018-10-01 06:55] LABS: Calcium 9.5 mg/dL (8.4-10.2); Magnesium 1.9 mg/dL (1.6-2.3); Phosphorus 3.7 mg/dL (2.5-4.5); Potassium 4.4 mmol/L (3.5-5.1)
[2018-10-01] MEDS: DILTIAZEM 125 MG in SODIUM CHLORIDE 0.9% 100 ML IV SCH ×2 (08:23→15:33)
[2018-10-01] MEDS: PANTOPRAZOLE 40 MG/10 ML VIAL IVP SCH ×2 (08:37→20:43)
[2018-10-01 11:32] LABS: Glucose,Whole Blood 193 mg/dL (75-99)
--- NOTE | 2018-10-01 11:34 | P.PN ---
Subjective Progress Note Date: 10/01/18 Principal diagnosis: Intractable vomiting Patient doing well today. Still with moderate nasogastric tube output. Labs noted. Denies pain. Objective - Vital Signs Vital signs: Vital Signs Temp 96.3 F L 10/01/18 11:18 Pulse 98 10/01/18 11:18 Resp 20 10/01/18 11:18 BP 116/63 10/01/18 11:18 Pulse Ox 90 L 10/01/18 11:18 Intake & Output 09/30/18 10/01/18 10/01/18 18:59 06:59 18:59 Intake Total 700 200 Output Total 758 996 4634 Balance -200 -700 -1200 Intake: IV 100 Intake, IV Titration 600 Amount Potassium Chloride 20 meq 600 Magnesium Sulfate gm 1 gm Sodium Chloride 4Meq/ ml Vial 24 meq In Amino Acid 5%-D15w+Lytes*E* 1, 000 ml @ 75 mls/hr IV .BY DURATION [facility] Rx#: [id number] Oral 200 Output: Gastric Drainage 300 900 Urine 600 700 500 Other: Voiding Method Incontinent Incontinent Incontinent # Voids 0 0 - Exam Abdomen: Soft, nondistended, nontender - Labs CBC & Chem 7: 09/30/18 00:00 10/01/18 05:41 Labs: Abnormal Lab Results - Last 24 Hours (Table) 09/30/18 09/30/18 09/30/18 Range/Units 16:32 18:49 23:56 Sodium (137-145) mmol/L Carbon Dioxide (22-30) mmol/L BUN (9-20) mg/dL Glucose (74-99) mg/dL POC Glucose (mg/dL) 267 H 290 H 263 H (75-99) mg/dL 10/01/18 10/01/18 10/01/18 Range/Units 05:41 06:08 11:30 Sodium 136 L (137-145) mmol/L Carbon Dioxide 31 H (22-30) mmol/L BUN 43 H (9-20) mg/dL Glucose 307 H (74-99) mg/dL POC Glucose (mg/dL) 308 H 193 H (75-99) mg/dL Assessment and Plan (1) Nausea & vomiting Narrative/Plan: Continue nasogastric tube to suction. Continue TPN for now. We'll repeat upper GI on Thursday morning. If evidence of obstruction persist would recommend transfer to [facility] for further evaluation and management. Current Visit: Yes Status: Acute Code(s): R11.2 - NAUSEA WITH VOMITING, UNSPECIFIED SNOMED Code(s): 92687883
[2018-10-01] MEDS: diphenhydrAMINE 50 MG/ML 1 ML VIAL IVP PRN ×2 (13:07→19:05)
[2018-10-01] MEDS: SODIUM CHLORIDE 0.9% 1,000 ML IV SCH (13:07)
--- NOTE | 2018-10-01 13:49 | CDI ---
Documentation Clarification Form Date: 10/01/2018 1:32:40 PM From: Melody PearsonLENNY elizondo, CCDS Admit Date: 09/22/2018 7:19:00 PM Patient Name: Enrique Olvera Visit Number: [id number] Discharge Date: ATTENTION: The Clinical Documentation Specialists (CDI) and [facility] Coding Staff appreciate your assistance in clarifying documentation. Please respond to the clarification below the line at the bottom and electronically sign. The CDI & [facility] Coding staff will review the response and follow-up if needed. Please note: Queries are made part of the Legal Health Record. If you have any questions, please contact the author of this message via ITS. Dr. Emilie Francis: Atrial Flutter & Atrial Fibrillation are documented throughout the chart without further specificity. Per the Cardiology consult: "Patient had an episode of paroxysmal atrial flutter which converted to the normal sinus rhythm. We will start the patient on flecainide 50 mg b.i.d. to prevent the recurrent episodes of atrial flutter." Per the attending progress notes: "Paroxysmal Atrial Flutter". Per the Nephrology progress note of 09/30: "Atrial Fibrillation maintained on Cardizem drip." History/Risk factors: DM, Hyperlipidemia, BPH, Anxiety. Clinical Indicators: Presented with nausea & vomiting, recently admitted to [facility] with peritoneal hemorrhage. Found to be dehydrated & in acute renal failure. EKG #1: R 107 sinus tachycardia. #2: R 97 sinus rhythm w/sinus arrhythmia w/PVCs. #3: R 74 sinus rhythm w/PACs, RBBB. Treatment: IV Zofran, IV fl bolus x2, IV fl 100, IV Insulin, IV Cardizem bolus on 09/23, IV Kcl, IV Ativan, IV MagSulfate, TPN started via new PEG tube. In your professional opinion, in order to capture the severity of condition; can you please clarify the type of Atrial Flutter and/or Atrial Fibrillation if known? Atrial Flutter: o Typical/Type I o Atypical/Type II o Other, please specify o Unable to determine Atrial Fibrillation: o Chronic o Paroxysmal o Persistent o Other, please specify o Unable to determine (Last Revision: October 2017) Would be a good question for cardiology MTDD
--- NOTE | 2018-10-01 14:22 | P.PN ---
Subjective 83-year-old admitted for aggressive and nausea vomiting probably partial small bowel obstruction or peptic ulcer disease patient is an NG tube with the biliary drainage patient will undergo upper GI endoscopy today for diagnosis. Patient is still draining significant amount of bilious fluid patient has nausea vomiting went into renal failure because of severe nausea vomiting patient creatinine is around 4.5 days a month 50 mL of normal saline patient has prerenal azotemia still has some urine output. Patient also has atrial flutter because of severe intravascular volume depletion for which patient is receiving IV fluids patient was hypotensive as well from intravascularly and patient nausea vomiting. Patient is presently on Cardizem as well cardiology evaluated the patient patient will not been on anticoagulation because of his recent retroperitoneal bleed. 09/25/2018 Patient still has significant output from the NG tube patient creatinine did improve. Patient appears to have mass effect on the second and third part of the the abdomen in the retroperitoneal area because of his previous retroperitoneal bleed. General surgery evaluated the patient and they're recommending TPN as patient that may not be able to eat for of wall because of his bowel obstruction and the duodenal area because of the retroperitoneal bleed. I'll discuss options with Gen. surgery like a stent placement or evacuation of retroperitoneal hematoma considering these symptoms 09/26/2018 Patient still has sluggish bowel sounds NG tube drainage improved no significant drainage after emptying the canister about 400 mL today creatinine continued to improve patient's IV fluids were decreased to 75 mL/h. Patient will go for PICC line placement tomorrow and will be started on total parenteral nutrition uncle his obstruction resolves with resolution of hematoma expected in couple days 10/01/2018 I signed evaluated the patient about 5-6 days ago. Patient was being followed by Dr. Henriquez. Patient still has an NG tube and still has significant drainage from the NG tube patient is presently on TPN because of the significant drainage and do not believe fluid via TPN will be enough, patient will be started on surfaces of normal saline apart from side effects from TPN. Considering creatinine is 1.1 patient apparently still in atrial flutter for which patient is on IV Cardizem as patient cannot take anything by mouth. Patient doesn't appear to have a maculopapular rash in the tachycardia appears to be contact dermatitis recommended that the staff to change all the sheets and patient will be given Benadryl on as-needed basis for this Constitutional: Denied any fatigue denied any fever. Cardio vascular: denied any chest pain, palpitations Gastrointestinal mentioned in HPI Pulmonary: Denied any shortness of breath cough Neurologic denied any new focal deficits All inpatient medications were reviewed and appropriate changes in these medications as dictated in the interval history and assessment and plan. Objective - Vital Signs Vital signs: Vital Signs Temp 96.3 F L 10/01/18 11:18 Pulse 98 10/01/18 11:18 Resp 20 10/01/18 11:18 BP 116/63 10/01/18 11:18 Pulse Ox 90 L 10/01/18 11:18 Intake & Output 09/30/18 10/01/18 10/01/18 18:59 06:59 18:59 Intake Total 700 200 Output Total 689 807 8640 Balance -200 -700 -1200 Intake: IV 100 Intake, IV Titration 600 Amount Potassium Chloride 20 meq 600 Magnesium Sulfate gm 1 gm Sodium Chloride 4Meq/ ml Vial 24 meq In Amino Acid 5%-D15w+Lytes*E* 1, 000 ml @ 75 mls/hr IV .BY DURATION [facility] Rx#: [id number] Oral 200 Output: Gastric Drainage 300 900 Urine 600 700 500 Other: Voiding Method Incontinent Incontinent Incontinent # Voids 0 0 - Exam PHYSICAL EXAMINATION: GENERAL: The patient is alert and oriented x3, not in any acute distress. Well developed, well nourished. HEENT: Pupils are round and equally reacting to light. EOMI. No scleral icterus. No conjunctival pallor. Normocephalic, atraumatic. No pharyngeal erythema. No thyromegaly. CARDIOVASCULAR: S1 and S2 present. No murmurs, rubs, or gallops. PULMONARY: Chest is clear to auscultation, no wheezing or crackles. ABDOMEN: Soft, NG tube in place.sluggish bowel sounds. MUSCULOSKELETAL: No joint swelling or deformity. EXTREMITIES: No cyanosis, clubbing, or pedal edema. NEUROLOGICAL: Gross neurological examination did not reveal any focal deficits. SKIN: No rashes. - Labs CBC & Chem 7: 09/30/18 00:00 10/01/18 05:41 Labs: Abnormal Lab Results - Last 24 Hours (Table) 09/30/18 09/30/18 09/30/18 Range/Units 16:32 18:49 23:56 Sodium (137-145) mmol/L Carbon Dioxide (22-30) mmol/L BUN (9-20) mg/dL Glucose (74-99) mg/dL POC Glucose (mg/dL) 267 H 290 H 263 H (75-99) mg/dL 10/01/18 10/01/18 10/01/18 Range/Units 05:41 06:08 11:30 Sodium 136 L (137-145) mmol/L Carbon Dioxide 31 H (22-30) mmol/L BUN 43 H (9-20) mg/dL Glucose 307 H (74-99) mg/dL POC Glucose (mg/dL) 308 H 193 H (75-99) mg/dL Assessment and Plan Plan: Small bowel obstruction at second and third part of the rhythm a because of mass effect from his previous retroperitoneal bleed continue with NG tube bowel rest IV fluids and increase was started on TPN -Acute renal failure secondary to renal azotemia along with secondary acute tubular necrosis creatinine went up to 5.1 baseline around 0.7. Continue with IV fluids and nephrotoxic agents were discontinued, improving creatinine presently around 1.1 since patient is still having significant NG tube output patient will be started on 75 mL of normal saline -Type 2 diabetes mellitus -Recent retroperitoneal hematoma -Atrial flutter: Patient is on Cardizem patient is not a candidate for anti- coagulation because of his retroperitoneal bleed which led to bowel obstruction -ALLERGIC rash: Secondary to contact dermatitis
[2018-10-01] MEDS: 1: MVI, ADULT NO.4 WITH VIT K 10 ML, TRACE (CONC-1ML/DOSE) 1 ML, POTASSIUM CHLORIDE 20 M IV SCH ×6 (15:34)
[2018-10-01 17:39] LABS: Glucose,Whole Blood 313 mg/dL (75-99)
[2018-10-01] MEDS: FAT EMULSION 20% 250 ML in EMPTY BAG 1 BAG IV SCH (18:09)
[2018-10-01 20:31] LABS: Glucose,Whole Blood 252 mg/dL (75-99)
[2018-10-01] MEDS: ATORVASTATIN 10 MG TAB PO SCH (20:43)
--- NOTE | 2018-10-01 22:52 | PN ---
PROGRESS NOTE The patient is seen for followup for acute kidney injury. Renal function has improved. Creatinine is down from about 5-1.1 mg/dL now. The patient remains with an NG tube in place. He has not been able to eat. PHYSICAL EXAMINATION: This morning blood pressure was 142/70, heart rate of 90 per minute. Patient is afebrile. Examination of the heart S1, S2. Examination lungs bilateral breath sounds are heard. Decreased breath sounds at bases. Abdomen is soft, nontender. Exam of lower extremities shows no significant edema. LAB: Show sodium 136, potassium 4.4, BUN 43, serum creatinine 1.15. ASSESSMENT: 1. Acute kidney injury, prerenal, currently significantly improved. 2. Small bowel obstruction from previous retroperitoneal bleed. Patient remains with NG tube in place. 3. Recent retroperitoneal hematoma. 4. Atrial flutter with controlled ventricular response. 5. Type 2 diabetes. PLAN: Continue TPN. The patient is stable from a nephrology standpoint, we will sign off. MMODL / IJN: [id number] /
[2018-10-02 00:18] LABS: Glucose,Whole Blood 299 mg/dL (75-99)
[2018-10-02] MEDS: INSULIN ASPART (NovoLOG) 100 UNIT/ML VIAL SQ SCH ×5 (00:40→23:51)
[2018-10-02] MEDS: SODIUM CHLORIDE 0.9% 1,000 ML IV SCH (00:41)
[2018-10-02] MEDS: diphenhydrAMINE 50 MG/ML 1 ML VIAL IVP PRN ×2 (04:34→23:50)
[2018-10-02] MEDS: 1: MVI, ADULT NO.4 WITH VIT K 10 ML, TRACE (CONC-1ML/DOSE) 1 ML, POTASSIUM CHLORIDE 20 M IV SCH ×12 (05:22→22:01)
[2018-10-02] MEDS: DILTIAZEM 125 MG in SODIUM CHLORIDE 0.9% 100 ML IV SCH (05:23)
[2018-10-02 05:55] LABS: Glucose,Whole Blood 252 mg/dL (75-99)
[2018-10-02 07:18] LABS: Calcium 8.9 mg/dL (8.4-10.2); Magnesium 2.4 mg/dL (1.6-2.3); Phosphorus 3.6 mg/dL (2.5-4.5); Potassium 4.4 mmol/L (3.5-5.1)
[2018-10-02] MEDS: FLECAINIDE 50 MG TAB PO SCH ×2 (08:57→22:00)
[2018-10-02] MEDS: PANTOPRAZOLE 40 MG/10 ML VIAL IVP SCH ×2 (08:57→22:05)
--- NOTE | 2018-10-02 09:13 | P.PN ---
Progress Note - Text Progress Note Date: 10/02/18 The patient is sleeping in his bed. His nasogastric tube has bilious drainage. Per the chart he put out 600 mL yesterday. Vital signs are stable. Abdomen soft. Retroperitoneal hematoma causing small duodenal obstruction. Patient will continue NG tube. Apparently he does not improve Dr. Osorio will be transferring him on Thursday.
--- NOTE | 2018-10-02 09:28 | P.PN ---
Subjective Patient is seen in follow-up for acute kidney injury. Renal function significantly improved since admission. He still has an NG tube in place. He is maintained on TPN and IV fluids. Vital signs are stable. General: The patient appeared well nourished and normally developed. HEENT: Head exam is unremarkable. Neck is without jugular venous distension. NG tube noted. LUNGS: Lungs are clear to auscultation and percussion. Breath sounds decreased. HEART: Rate and Rhythm are regular. First and second heart sounds normal. No murmurs, rubs or gallops. ABDOMEN: Abdominal exam reveals normal bowel sounds. Non-tender and non- distended. No evidence of peritonitis. EXTREMITITES: No clubbing, cyanosis, or edema. Objective - Vital Signs Vital signs: Vital Signs Temp 97.6 F 10/02/18 09:11 Pulse 70 10/02/18 09:11 Resp 20 10/02/18 09:11 BP 131/64 10/02/18 09:11 Pulse Ox 94 L 10/02/18 09:11 Intake & Output 10/01/18 10/02/18 10/02/18 18:59 06:59 18:59 Intake Total 1450 69.167 Output Total 1999 1300 Balance -550 -1230.833 Weight 65.227 kg 65.2 kg Intake: Intake, IV Titration 1200 69.167 Amount Diltiazem 125 mg In 69.167 Sodium Chloride 0.9% 100 ml @ 10 MG/HR 10 mls/hr IV .[id number] [facility] Rx#: [id number] Potassium Chloride 20 meq 600 Magnesium Sulfate gm 1 gm Sodium Chloride 2.5MEQ /ml Vial 24 meq In Amino Acid 5%-D15w+Lytes*E* 1, 000 ml @ 75 mls/hr IV .BY DURATION [facility] Rx#: [id number] Sodium Chloride 0.9% 1, 600 000 ml @ 75 mls/hr IV . [id number] [facility] Rx#:[id number] Oral 250 Output: Gastric Drainage 1500 600 Urine 500 700 Other: Voiding Method Incontinent Incontinent - Labs CBC & Chem 7: 09/30/18 00:00 10/02/18 05:37 Labs: Abnormal Lab Results - Last 24 Hours (Table) 10/01/18 10/01/18 10/01/18 Range/Units 11:30 17:35 20:30 BUN (9-20) mg/dL Glucose (74-99) mg/dL POC Glucose (mg/dL) 193 H 313 H 252 H (75-99) mg/dL Magnesium (1.6-2.3) mg/dL 10/02/18 10/02/18 10/02/18 Range/Units 00:17 05:37 05:49 BUN 49 H (9-20) mg/dL Glucose 269 H (74-99) mg/dL POC Glucose (mg/dL) 299 H 252 H (75-99) mg/dL Magnesium 2.4 H (1.6-2.3) mg/dL Assessment and Plan Plan: Assessment: 1. Acute kidney injury secondary to ATN secondary to intravascular volume depletion from vomiting. Creatinine 5.1 and on admission and is 1.16 today. Abdominal ultrasound revealed no evidence of hydronephrosis. Baseline creatinine near 1. 2. Metabolic alkalosis secondary to hydrogen ion losses from vomiting. The patient was also hypochloremic and hypokalemic which will maintain alkalosis by impairing bicarb secretion. Better. 3. Hypokalemia from poor oral intake. Improved post replacement. 4. Diabetes mellitus. 5. Recent retroperitoneal hemorrhage. Hemoglobin is stable. 6. Small bowel obstruction. He currently has an NG tube in place. Surgery following. EGD done on September 30 revealed gastritis and small hiatal hernia. Currently receiving TPN. 7. Atrial fibrillation maintained on Cardizem drip. Plan: Maintain normal saline at 75 mL an hour. Maintain TPN per surgery recommendations. Avoid nephrotoxins. Repeat electrolytes in the morning.
[2018-10-02 12:29] LABS: Glucose,Whole Blood 290 mg/dL (75-99)
--- NOTE | 2018-10-02 15:09 | P.PN ---
Subjective 83-year-old admitted for aggressive and nausea vomiting probably partial small bowel obstruction or peptic ulcer disease patient is an NG tube with the biliary drainage patient will undergo upper GI endoscopy today for diagnosis. Patient is still draining significant amount of bilious fluid patient has nausea vomiting went into renal failure because of severe nausea vomiting patient creatinine is around 4.5 days a month 50 mL of normal saline patient has prerenal azotemia still has some urine output. Patient also has atrial flutter because of severe intravascular volume depletion for which patient is receiving IV fluids patient was hypotensive as well from intravascularly and patient nausea vomiting. Patient is presently on Cardizem as well cardiology evaluated the patient patient will not been on anticoagulation because of his recent retroperitoneal bleed. 09/25/2018 Patient still has significant output from the NG tube patient creatinine did improve. Patient appears to have mass effect on the second and third part of the the abdomen in the retroperitoneal area because of his previous retroperitoneal bleed. General surgery evaluated the patient and they're recommending TPN as patient that may not be able to eat for of wall because of his bowel obstruction and the duodenal area because of the retroperitoneal bleed. I'll discuss options with Gen. surgery like a stent placement or evacuation of retroperitoneal hematoma considering these symptoms 09/26/2018 Patient still has sluggish bowel sounds NG tube drainage improved no significant drainage after emptying the canister about 400 mL today creatinine continued to improve patient's IV fluids were decreased to 75 mL/h. Patient will go for PICC line placement tomorrow and will be started on total parenteral nutrition uncle his obstruction resolves with resolution of hematoma expected in couple days 10/01/2018 I signed evaluated the patient about 5-6 days ago. Patient was being followed by Dr. Henriquez. Patient still has an NG tube and still has significant drainage from the NG tube patient is presently on TPN because of the significant drainage and do not believe fluid via TPN will be enough, patient will be started on surfaces of normal saline apart from side effects from TPN. Considering creatinine is 1.1 patient apparently still in atrial flutter for which patient is on IV Cardizem as patient cannot take anything by mouth. Patient doesn't appear to have a maculopapular rash in the tachycardia appears to be contact dermatitis recommended that the staff to change all the sheets and patient will be given Benadryl on as-needed basis for this 10/03/2018 No overnight events patient the is clinically doing well patient is being started on oral medications and IV Cardizem is being discontinued at this time. Constitutional: Denied any fatigue denied any fever. Cardio vascular: denied any chest pain, palpitations Gastrointestinal mentioned in HPI Pulmonary: Denied any shortness of breath cough Neurologic denied any new focal deficits All inpatient medications were reviewed and appropriate changes in these medications as dictated in the interval history and assessment and plan. Objective - Vital Signs Vital signs: Vital Signs Temp 97.8 F 10/02/18 11:47 Pulse 72 10/02/18 11:47 Resp 20 10/02/18 11:47 BP 131/61 10/02/18 11:47 Pulse Ox 95 10/02/18 11:47 Intake & Output 10/01/18 10/02/18 10/02/18 18:59 06:59 18:59 Intake Total 1450 69.167 Output Total 1999 1300 Balance -550 -1230.833 Weight 65.227 kg 65.2 kg Intake: Intake, IV Titration 1200 69.167 Amount Diltiazem 125 mg In 69.167 Sodium Chloride 0.9% 100 ml @ 10 MG/HR 10 mls/hr IV .[id number] [facility] Rx#: [id number] Potassium Chloride 20 meq 600 Magnesium Sulfate gm 1 gm Sodium Chloride 2.5MEQ /ml Vial 24 meq In Amino Acid 5%-D15w+Lytes*E* 1, 000 ml @ 75 mls/hr IV .BY DURATION [facility] Rx#: [id number] Sodium Chloride 0.9% 1, 600 000 ml @ 75 mls/hr IV . [id number] [facility] Rx#:[id number] Oral 250 Output: Gastric Drainage 1500 600 Urine 500 700 Other: Voiding Method Incontinent Incontinent - Exam PHYSICAL EXAMINATION: GENERAL: The patient is alert and oriented x3, not in any acute distress. Well developed, well nourished. HEENT: Pupils are round and equally reacting to light. EOMI. No scleral icterus. No conjunctival pallor. Normocephalic, atraumatic. No pharyngeal erythema. No thyromegaly. CARDIOVASCULAR: S1 and S2 present. No murmurs, rubs, or gallops. PULMONARY: Chest is clear to auscultation, no wheezing or crackles. ABDOMEN: Soft, NG tube in place.sluggish bowel sounds. MUSCULOSKELETAL: No joint swelling or deformity. EXTREMITIES: No cyanosis, clubbing, or pedal edema. NEUROLOGICAL: Gross neurological examination did not reveal any focal deficits. SKIN: No rashes. - Labs CBC & Chem 7: 09/30/18 00:00 10/02/18 05:37 Labs: Abnormal Lab Results - Last 24 Hours (Table) 10/01/18 10/01/18 10/02/18 Range/Units 17:35 20:30 00:17 BUN (9-20) mg/dL Glucose (74-99) mg/dL POC Glucose (mg/dL) 313 H 252 H 299 H (75-99) mg/dL Magnesium (1.6-2.3) mg/dL 10/02/18 10/02/18 10/02/18 Range/Units 05:37 05:49 12:03 BUN 49 H (9-20) mg/dL Glucose 269 H (74-99) mg/dL POC Glucose (mg/dL) 252 H 290 H (75-99) mg/dL Magnesium 2.4 H (1.6-2.3) mg/dL Assessment and Plan Plan: Small bowel obstruction at second and third part of the rhythm a because of mass effect from his previous retroperitoneal bleed continue with NG tube bowel rest IV fluids and increase was started on TPN -Acute renal failure secondary to renal azotemia along with secondary acute tubular necrosis creatinine went up to 5.1 baseline around 0.7. Continue with IV fluids and nephrotoxic agents were discontinued, improving creatinine presently around 1.1 since patient is still having significant NG tube output patient will be continued on on 75 mL of lactated Ringer's -Type 2 diabetes mellitus -Recent retroperitoneal hematoma -Atrial flutter: Patient is on Cardizem patient is not a candidate for anti-co agulation because of his retroperitoneal bleed which led to bowel obstruction -ALLERGIC rash: Secondary to contact dermatitis
[2018-10-02] MEDS: LACTATED RINGERS 1,000 ML IV SCH (16:38)
[2018-10-02 17:26] LABS: Glucose,Whole Blood 240 mg/dL (75-99)
[2018-10-02] MEDS: FAT EMULSION 20% 250 ML in EMPTY BAG 1 BAG IV SCH (17:37)
[2018-10-02] MEDS: FINASTERIDE 5 MG TAB PO SCH (22:00)
[2018-10-02] MEDS: ATORVASTATIN 10 MG TAB PO SCH (22:00)
[2018-10-02 23:46] LABS: Glucose,Whole Blood 219 mg/dL (75-99)
[2018-10-03] MEDS: DILTIAZEM 125 MG in SODIUM CHLORIDE 0.9% 100 ML IV SCH ×3 (05:49→16:09)
[2018-10-03] MEDS: LACTATED RINGERS 1,000 ML IV SCH ×2 (05:51→16:09)
[2018-10-03 06:00] LABS: Glucose,Whole Blood 278 mg/dL (75-99)
[2018-10-03] MEDS: INSULIN ASPART (NovoLOG) 100 UNIT/ML VIAL SQ SCH ×3 (06:00→18:23)
[2018-10-03 07:58] LABS: Calcium 9.3 mg/dL (8.4-10.2); Magnesium 2.1 mg/dL (1.6-2.3); Phosphorus 3.5 mg/dL (2.5-4.5); Potassium 4.6 mmol/L (3.5-5.1)
[2018-10-03] MEDS: 1: MVI, ADULT NO.4 WITH VIT K 10 ML, TRACE (CONC-1ML/DOSE) 1 ML, POTASSIUM CHLORIDE 20 M IV SCH ×18 (09:00→14:07)
[2018-10-03] MEDS: PANTOPRAZOLE 40 MG/10 ML VIAL IVP SCH ×2 (09:09→21:27)
[2018-10-03] MEDS: FLECAINIDE 50 MG TAB PO SCH ×2 (09:09→21:27)
--- NOTE | 2018-10-03 10:17 | P.PN ---
Subjective Patient is seen in follow-up for acute kidney injury. Renal function significantly improved since admission. He still has an NG tube in place. He is maintained on TPN and IV fluids. No changes overnight. Vital signs are stable. General: The patient appeared well nourished and normally developed. HEENT: Head exam is unremarkable. Neck is without jugular venous distension. NG tube noted. LUNGS: Lungs are clear to auscultation and percussion. Breath sounds decreased. HEART: Rate and Rhythm are regular. First and second heart sounds normal. No murmurs, rubs or gallops. ABDOMEN: Abdominal exam reveals normal bowel sounds. Non-tender and non- distended. No evidence of peritonitis. EXTREMITITES: No clubbing, cyanosis, or edema. Objective - Vital Signs Vital signs: Vital Signs Temp 97.8 F 10/03/18 08:00 Pulse 76 10/03/18 08:00 Resp 18 10/03/18 08:00 BP 148/67 10/03/18 08:00 Pulse Ox 97 10/03/18 08:00 Intake & Output 10/02/18 10/03/18 10/03/18 17:59 06:59 18:59 Intake Total Output Total Balance Weight Intake: Intake, IV Titration Amount Diltiazem 125 mg In Sodium Chloride 0.9% 100 ml @ 10 MG/HR 10 mls/hr IV .[id number] [facility] Rx#: [id number] Output: Gastric Drainage Urine Other: Voiding Method Incontinent - Labs CBC & Chem 7: 09/30/18 00:00 10/03/18 07:00 Labs: Abnormal Lab Results - Last 24 Hours (Table) 10/02/18 10/02/18 10/02/18 Range/Units 12:03 17:06 23:38 Chloride (98-107) mmol/L BUN (9-20) mg/dL Glucose (74-99) mg/dL POC Glucose (mg/dL) 290 H 240 H 219 H (75-99) mg/dL 10/03/18 10/03/18 Range/Units 05:51 07:00 Chloride 108 H (98-107) mmol/L BUN 45 H (9-20) mg/dL Glucose 262 H (74-99) mg/dL POC Glucose (mg/dL) 278 H (75-99) mg/dL Assessment and Plan Plan: Assessment: 1. Acute kidney injury secondary to ATN secondary to intravascular volume depletion from vomiting. Creatinine 5.1 and on admission and is 1.04 today. Ab dominal ultrasound revealed no evidence of hydronephrosis. Baseline creatinine near 1. 2. Metabolic alkalosis secondary to hydrogen ion losses from vomiting. The patient was also hypochloremic and hypokalemic which will maintain alkalosis by impairing bicarb secretion. Better. 3. Hypokalemia from poor oral intake. Improved post replacement. 4. Diabetes mellitus. 5. Recent retroperitoneal hemorrhage. Hemoglobin is stable. 6. Small bowel obstruction. He currently has an NG tube in place. Surgery following. EGD done on September 30 revealed gastritis and small hiatal hernia. Currently receiving TPN. 7. Atrial fibrillation maintained on Cardizem drip. Plan: Maintain normal saline at 75 mL an hour. Maintain TPN per surgery recommendations. Avoid nephrotoxins. Repeat electrolytes in the morning.
--- NOTE | 2018-10-03 11:46 | P.PN ---
Progress Note - Text Progress Note Date: 10/03/18 The patient is much more awake today. He still has had 700 mL output through his NG tube yesterday. He denies any significant abdominal pain. On exam is lesser stable. Abdomen soft Distended Patient will undergo upper GI tomorrow tonight for possible duodenal obstruction related to his retroperitoneal hematoma. Dr. Steve will reevaluate him tomorrow.
[2018-10-03 11:48] LABS: Glucose,Whole Blood 294 mg/dL (75-99)
--- NOTE | 2018-10-03 12:41 | P.PN ---
Subjective 83-year-old admitted for aggressive and nausea vomiting probably partial small bowel obstruction or peptic ulcer disease patient is an NG tube with the biliary drainage patient will undergo upper GI endoscopy today for diagnosis. Patient is still draining significant amount of bilious fluid patient has nausea vomiting went into renal failure because of severe nausea vomiting patient creatinine is around 4.5 days a month 50 mL of normal saline patient has prerenal azotemia still has some urine output. Patient also has atrial flutter because of severe intravascular volume depletion for which patient is receiving IV fluids patient was hypotensive as well from intravascularly and patient nausea vomiting. Patient is presently on Cardizem as well cardiology evaluated the patient patient will not been on anticoagulation because of his recent retroperitoneal bleed. 09/25/2018 Patient still has significant output from the NG tube patient creatinine did improve. Patient appears to have mass effect on the second and third part of the the abdomen in the retroperitoneal area because of his previous retroperitoneal bleed. General surgery evaluated the patient and they're recommending TPN as patient that may not be able to eat for of wall because of his bowel obstruction and the duodenal area because of the retroperitoneal bleed. I'll discuss options with Gen. surgery like a stent placement or evacuation of retroperitoneal hematoma considering these symptoms 09/26/2018 Patient still has sluggish bowel sounds NG tube drainage improved no significant drainage after emptying the canister about 400 mL today creatinine continued to improve patient's IV fluids were decreased to 75 mL/h. Patient will go for PICC line placement tomorrow and will be started on total parenteral nutrition uncle his obstruction resolves with resolution of hematoma expected in couple days 10/01/2018 I signed evaluated the patient about 5-6 days ago. Patient was being followed by Dr. Henriquez. Patient still has an NG tube and still has significant drainage from the NG tube patient is presently on TPN because of the significant drainage and do not believe fluid via TPN will be enough, patient will be started on surfaces of normal saline apart from side effects from TPN. Considering creatinine is 1.1 patient apparently still in atrial flutter for which patient is on IV Cardizem as patient cannot take anything by mouth. Patient doesn't appear to have a maculopapular rash in the tachycardia appears to be contact dermatitis recommended that the staff to change all the sheets and patient will be given Benadryl on as-needed basis for this 10/02/2018 No overnight events patient the is clinically doing well patient is being started on oral medications and IV Cardizem is being discontinued at this time. 10/03/2018 Patient does have bibasilar crackles along the chest x-ray mostly has atelectasis since patient is on IV fluids will make sure patient the is not volume overloaded. Patient NG tube output has slowed down and hopefully patient the bowel obstruction will improve Constitutional: Denied any fatigue denied any fever. Cardio vascular: denied any chest pain, palpitations Gastrointestinal mentioned in HPI Pulmonary: Denied any shortness of breath cough Neurologic denied any new focal deficits All inpatient medications were reviewed and appropriate changes in these medications as dictated in the interval history and assessment and plan. Objective - Vital Signs Vital signs: Vital Signs Temp 97.8 F 10/03/18 08:00 Pulse 76 10/03/18 08:00 Resp 18 10/03/18 08:00 BP 148/67 10/03/18 08:00 Pulse Ox 97 10/03/18 08:00 Intake & Output 10/02/18 10/03/18 10/03/18 17:59 06:59 18:59 Intake Total Output Total Balance Weight Intake: Intake, IV Titration Amount Diltiazem 125 mg In Sodium Chloride 0.9% 100 ml @ 10 MG/HR 10 mls/hr IV .[id number] [facility] Rx#: [id number] Output: Gastric Drainage Urine Other: Voiding Method Incontinent - Exam PHYSICAL EXAMINATION: GENERAL: The patient is alert and oriented x3, not in any acute distress. Well developed, well nourished. HEENT: Pupils are round and equally reacting to light. EOMI. No scleral icterus. No conjunctival pallor. Normocephalic, atraumatic. No pharyngeal erythema. No thyromegaly. CARDIOVASCULAR: S1 and S2 present. No murmurs, rubs, or gallops. PULMONARY: Chest is clear to auscultation, no wheezing or crackles. ABDOMEN: Soft, NG tube in place.sluggish bowel sounds. MUSCULOSKELETAL: No joint swelling or deformity. EXTREMITIES: No cyanosis, clubbing, or pedal edema. NEUROLOGICAL: Gross neurological examination did not reveal any focal deficits. SKIN: No rashes. - Labs CBC & Chem 7: 09/30/18 00:00 10/03/18 07:00 Labs: Abnormal Lab Results - Last 24 Hours (Table) 10/02/18 10/02/18 10/02/18 Range/Units 12:03 17:06 23:38 Chloride (98-107) mmol/L BUN (9-20) mg/dL Glucose (74-99) mg/dL POC Glucose (mg/dL) 290 H 240 H 219 H (75-99) mg/dL 10/03/18 10/03/18 10/03/18 Range/Units 05:51 07:00 11:46 Chloride 108 H (98-107) mmol/L BUN 45 H (9-20) mg/dL Glucose 262 H (74-99) mg/dL POC Glucose (mg/dL) 278 H 294 H (75-99) mg/dL Assessment and Plan Plan: Small bowel obstruction at second and third part of the rhythm a because of mass effect from his previous retroperitoneal bleed continue with NG tube bowel rest IV fluids and increase was started on TPN -Acute renal failure secondary to renal azotemia along with secondary acute tubular necrosis creatinine went up to 5.1 baseline around 0.7. Continue with IV fluids and nephrotoxic agents were discontinued, improving creatinine presently around 1.1 since patient is still having significant NG tube output patient will be continued on on 75 mL of lactated Ringer's -Type 2 diabetes mellitus -Recent retroperitoneal hematoma -Atrial flutter: Patient is on Cardizem patient is not a candidate for anti- coagulation because of his retroperitoneal bleed which led to bowel obstruction, Cardizem will be tapered down -ALLERGIC rash: Secondary to contact dermatitis, improved now
--- NOTE | 2018-10-03 13:43 | XR ---
EXAMINATION TYPE: XR chest 1V DATE OF EXAM: 10/03/2018 COMPARISON: Prior chest x-ray 09/24/2018 HISTORY: Abnormal physical exam, abnormal chest x-ray TECHNIQUE: Single frontal view of the chest is obtained. FINDINGS: Left-sided PICC line shows the distal tip overlying superior vena cava. No pneumothorax or pleural effusion. Minimal patchy basilar density. Aorta is dense. Heart size is likely stable accoun ting for technique. Patient is rotated. IMPRESSION: Suspect left lower lobe atelectasis. Follow-up PA and lateral chest x-ray may be of bene fit.
[2018-10-03] MEDS: diphenhydrAMINE 50 MG/ML 1 ML VIAL IVP PRN (15:58)
[2018-10-03] MEDS: FAT EMULSION 20% 250 ML in EMPTY BAG 1 BAG IV SCH (16:09)
[2018-10-03 17:59] LABS: Glucose,Whole Blood 258 mg/dL (75-99)
[2018-10-03] MEDS: FINASTERIDE 5 MG TAB PO SCH (21:27)
[2018-10-03] MEDS: ATORVASTATIN 10 MG TAB PO SCH (21:27)
[2018-10-04 00:02] LABS: Glucose,Whole Blood 282 mg/dL (75-99)
[2018-10-04] MEDS: INSULIN ASPART (NovoLOG) 100 UNIT/ML VIAL SQ SCH ×4 (00:50→18:21)
[2018-10-04] MEDS ORDERED: 1: MVI, ADULT NO.4 WITH VIT K 10 ML, TRACE (CONC-1ML/DOSE) 1 ML, POTASSIUM CHLORIDE 10 M IV SCH ×6 (02:00)
[2018-10-04 05:49] LABS: Glucose,Whole Blood 250 mg/dL (75-99)
[2018-10-04] MEDS: LACTATED RINGERS 1,000 ML IV SCH ×2 (06:16→21:36)
[2018-10-04] MEDS: DILTIAZEM 125 MG in SODIUM CHLORIDE 0.9% 100 ML IV SCH (07:56)
--- NOTE | 2018-10-04 09:27 | CDI ---
Documentation Clarification Form Date: 10/01/2018 1:32:00 PM From: Melody PimentelPearsonLENNY elizondo, CCDS Admit Date: 09/22/2018 7:19:00 PM Patient Name: Enrique Olvera Visit Number: [id number] Discharge Date: ATTENTION: The Clinical Documentation Specialists (CDI) and [facility] Coding Staff appreciate your assistance in clarifying documentation. Please respond to the clarification below the line at the bottom and electronically sign. The CDI & [facility] Coding staff will review the response and follow-up if needed. Please note: Queries are made part of the Legal Health Record. If you have any questions, please contact the author of this message via ITS. Dr. Sruthi Isabel: It is requested by the attending, Dr. Emilie Francis that this Atrial Fibrillation/Atrial Flutter query be submitted to the trauma nurse of record. Atrial Flutter & Atrial Fibrillation are documented throughout the chart without further specificity. Per the Cardiology consult: "Patient had an episode of paroxysmal atrial flutter which converted to the normal sinus rhythm. We will start the patient on flecainide 50 mg b.i.d. to prevent the recurrent episodes of atrial flutter." Per the attending progress notes: "Paroxysmal Atrial Flutter". Per the Nephrology progress note of 09/30: "Atrial Fibrillation maintained on Cardizem drip." History/Risk factors: DM, Hyperlipidemia, BPH, Anxiety. Clinical Indicators: Presented with nausea & vomiting, recently admitted to [facility] with peritoneal hemorrhage. Found to be dehydrated & in acute renal failure. EKG #1: R 107 sinus tachycardia. #2: R 97 sinus rhythm w/sinus arrhythmia w/PVCs. #3: R 74 sinus rhythm w/PACs, RBBB. Treatment: IV Zofran, IV fl bolus x2, IV fl 100, IV Insulin, IV Cardizem bolus on 09/23, IV Kcl, IV Ativan, IV MagSulfate, TPN started via new PEG tube. In your professional opinion, in order to capture the severity of condition; can you please clarify the type of Atrial Flutter and/or Atrial Fibrillation if known? Atrial Flutter: o Typical/Type I o Atypical/Type II o Other, please specify o Unable to determine Atrial Fibrillation: o Chronic o Paroxysmal o Persistent o Other, please specify o Unable to determine (Last Revision: October 2017) MTDD
[2018-10-04] MEDS: diphenhydrAMINE 50 MG/ML 1 ML VIAL IVP PRN (10:32)
[2018-10-04] MEDS: PANTOPRAZOLE 40 MG/10 ML VIAL IVP SCH ×2 (10:38→21:36)
[2018-10-04 11:32] LABS: Glucose,Whole Blood 277 mg/dL (75-99)
[2018-10-04] MEDS: FLECAINIDE 50 MG TAB PO SCH ×2 (12:28→21:39)
--- NOTE | 2018-10-04 12:38 | P.PN ---
Subjective Patient returned to the floor from upper GI. NG in place that to suction at this time for films for upper GI. Patient denies any abdominal pain. Abdomen soft bowel sounds present Objective - Vital Signs Vital signs: Vital Signs Temp 97.9 F 10/04/18 06:12 Pulse 80 10/04/18 08:10 Resp 16 10/04/18 08:10 BP 133/66 10/04/18 08:10 Pulse Ox 96 10/04/18 08:10 Intake & Output 10/03/18 10/04/18 10/04/18 18:59 06:59 18:59 Intake Total 3828.817 4766 Output Total 350 1600 Balance 783.167 250 Weight 68.1 kg Intake: Intake, IV Titration 6127.642 6586 Amount Diltiazem 125 mg In 102.167 Sodium Chloride 0.9% 100 ml @ 10 MG/HR 10 mls/hr IV .[id number] [facility] Rx#: [id number] Lactated Ringers 1,000 ml 900 @ 75 mls/hr IV .[id number] [facility] Rx#:[id number] Mvi, Adult No.4 with Vit 1031 K 10 ml Trace (Conc-1Ml/ Dose) 1 ml Potassium Chloride 20 meq Magnesium Sulfate gm 1 gm Sodium Chloride 2.5MEQ/ml Vial 20 meq In Amino Acid 5%- D15w+Lytes*E* 1,000 ml @ 75 mls/hr IV .BY DURATION [facility] Rx#:[id number] Potassium Chloride 10 meq 900 Sodium Chloride 2.5MEQ/ ml Vial 24 meq In Amino Acid 5%-D15w+Lytes*E* 1, 000 ml @ 75 mls/hr IV .BY DURATION [facility] Rx#: [id number] Oral 50 Output: Gastric Drainage 600 Urine 350 1000 Other: Voiding Method Incontinent Incontinent Incontinent # Voids 0 - Constitutional General appearance: Present: mild distress - EENT Eyes: Present: PERRLA Ears: bilateral: normal - Neck Neck: Present: normal ROM - Respiratory Respiratory: bilateral: CTA - Cardiovascular Rhythm: regular - Gastrointestinal General gastrointestinal: Present: normal bowel sounds, soft - Integumentary Integumentary: Present: normal - Neurologic Neurologic: Present: CNII-XII intact - Musculoskeletal Musculoskeletal: Present: generalized weakness - Psychiatric Psychiatric: Present: A&O x's 3, appropriate affect, intact judgment & insight - Labs CBC & Chem 7: 09/30/18 00:00 10/03/18 07:00 Labs: Abnormal Lab Results - Last 24 Hours (Table) 10/03/18 10/03/18 10/04/18 Range/Units 17:58 23:56 05:47 POC Glucose (mg/dL) 258 H 282 H 250 H (75-99) mg/dL 10/04/18 Range/Units 11:29 POC Glucose (mg/dL) 277 H (75-99) mg/dL Assessment and Plan Plan: Assessment Small bowel obstruction duodenum Acute renal failure secondary to azotemia improved acute on chronic stage III Diabetes type 2 Recurrent retroperitoneal hematoma Atrial flutter paroxysmal Generalized weakness History of BPH hyperlipidemia Patient on TPN BPH Plan Continue consultation with surgery Dr. Osorio Cardiology Nephrology
[2018-10-04 13:47] LABS: Anion Gap 5 mmol/L; Blood Urea Nitrogen 38 mg/dL (9-20); Calcium 9.3 mg/dL (8.4-10.2); Carbon Dioxide 25 mmol/L (22-30); Chloride 109 mmol/L (98-107); Glucose 299 mg/dL (74-99); Magnesium 1.8 mg/dL (1.6-2.3); Phosphorus 3.6 mg/dL (2.5-4.5); Sodium 139 mmol/L (137-145)
--- NOTE | 2018-10-04 16:11 | FL ---
EXAMINATION TYPE: FL UGI w small bowel DATE OF EXAM: 10/04/2018 COMPARISON: 09/29/2018 HISTORY: Follow-up duodenal obstruction 17OZ THIN BARIUM INJECTED THROUGH NG TUBE, 4MIN 27SEC FL TIME TECHNIQUE: A single contrast UGI study is performed with small bowel follow through. FINDINGS: Mortgage Coordinator image of the abdomen shows no gross abnormality. Small hiatal hernia is noted. Mild gastroesophageal reflux is noted during the course of the examinat ion. Mild gastric distention noted. There is a large duodenal diverticulum at the junction of the second a nd third portions of the duodenum with internal filling defect noted. Contrast at this point however does extend into the distal duodenum and beyond the ligament of Treitz. Small bowel follow-through was performed with a transit time of the between 5 1/2 and 6 hours. There is normal mucosal fold pattern throughout the small bowel. There is no evidence of any stricture or filling defect noted. The terminal ileum is unremarkable. IMPRESSION: 1. Large duodenal diverticulum as noted however previously noted obstruction has resolved. Filling de fect is noted at the base of the diverticulum. 2. Small hiatal hernia. 3. Mild gastroesophageal reflux. 4. Delayed small bowel transit.
[2018-10-04 16:56] LABS: Glucose,Whole Blood 262 mg/dL (75-99)
--- NOTE | 2018-10-04 17:17 | P.PN ---
Subjective Progress Note Date: 10/04/18 Principal diagnosis: Intractable vomiting Patient had his repeat upper GI today. Upper GI shows no persistent obstruction through the duodenum. Large diverticulum noted. Some slow transit through the small bowel however. Patient doing well. Overall output has decreased over the weekend. Denies pain. Objective - Vital Signs Vital signs: Vital Signs Temp 97.9 F 10/04/18 06:12 Pulse 92 10/04/18 12:10 Resp 16 10/04/18 12:10 BP 158/77 10/04/18 12:10 Pulse Ox 92 L 10/04/18 12:10 Intake & Output 10/03/18 10/04/18 10/04/18 18:59 06:59 18:59 Intake Total 8633.964 1858 Output Total 350 1600 900 Balance 783.167 250 -900 Weight 68.1 kg Intake: Intake, IV Titration 2585.484 9095 Amount Diltiazem 125 mg In 102.167 Sodium Chloride 0.9% 100 ml @ 10 MG/HR 10 mls/hr IV .[id number] [facility] Rx#: [id number] Lactated Ringers 1,000 ml 900 @ 75 mls/hr IV .[id number] [facility] Rx#:[id number] Mvi, Adult No.4 with Vit 1031 K 10 ml Trace (Conc-1Ml/ Dose) 1 ml Potassium Chloride 20 meq Magnesium Sulfate gm 1 gm Sodium Chloride 2.5MEQ/ml Vial 20 meq In Amino Acid 5%- D15w+Lytes*E* 1,000 ml @ 75 mls/hr IV .BY DURATION [facility] Rx#:[id number] Potassium Chloride 10 meq 900 Sodium Chloride 2.5MEQ/ ml Vial 24 meq In Amino Acid 5%-D15w+Lytes*E* 1, 000 ml @ 75 mls/hr IV .BY DURATION [facility] Rx#: [id number] Oral 50 Output: Gastric Drainage 600 Urine 350 1000 900 Other: Voiding Method Incontinent Incontinent Incontinent # Voids 0 0 - Exam Abdomen: Soft, nondistended, nontender - Labs CBC & Chem 7: 09/30/18 00:00 10/04/18 12:57 Labs: Abnormal Lab Results - Last 24 Hours (Table) 10/03/18 10/03/18 10/04/18 Range/Units 17:58 23:56 05:47 Chloride (98-107) mmol/L BUN (9-20) mg/dL Glucose (74-99) mg/dL POC Glucose (mg/dL) 258 H 282 H 250 H (75-99) mg/dL 10/04/18 10/04/18 10/04/18 Range/Units 11:29 12:57 16:53 Chloride 109 H (98-107) mmol/L BUN 38 H (9-20) mg/dL Glucose 299 H (74-99) mg/dL POC Glucose (mg/dL) 277 H 262 H (75-99) mg/dL Assessment and Plan (1) Nausea & vomiting Narrative/Plan: We'll remove the nasogastric tube at this time. Begin clear liquids. Current Visit: Yes Status: Acute Code(s): R11.2 - NAUSEA WITH VOMITING, UNSPECIFIED SNOMED Code(s): 93795338
[2018-10-04] MEDS: 1: MVI, ADULT NO.4 WITH VIT K 10 ML, TRACE (CONC-1ML/DOSE) 1 ML, POTASSIUM CHLORIDE 10 M IV SCH ×7 (18:25)
[2018-10-04] MEDS: FAT EMULSION 20% 250 ML in EMPTY BAG 1 BAG IV SCH (18:32)
[2018-10-04] MEDS: ATORVASTATIN 10 MG TAB PO SCH (21:39)
[2018-10-04] MEDS: FINASTERIDE 5 MG TAB PO SCH (21:39)
[2018-10-04] MEDS: INSULIN DETEMIR (LEVEMIR) 100 UNIT/ML SYR SQ SCH (21:40)
[2018-10-05] LABS: Glucose,Whole Blood 201 mg/dL (75-99)
[2018-10-05] MEDS: INSULIN ASPART (NovoLOG) 100 UNIT/ML VIAL SQ SCH ×5 (00:25→23:38)
[2018-10-05] MEDS: diphenhydrAMINE 50 MG/ML 1 ML VIAL IVP PRN ×3 (01:57→23:37)
[2018-10-05 06:13] LABS: Glucose,Whole Blood 171 mg/dL (75-99)
[2018-10-05 06:13] LABS: Glucose,Whole Blood 175 mg/dL (75-99)
--- NOTE | 2018-10-05 08:03 | CDI ---
Documentation Clarification Form Date: 10/05/2018 7:40:03 AM From: Melody PearsonLENNY elizondo, CCDS Admit Date: 09/22/2018 7:19:00 PM Patient Name: Enrique Olvera Visit Number: [id number] Discharge Date: ATTENTION: The Clinical Documentation Specialists (CDI) and [facility] Coding Staff appreciate your assistance in clarifying documentation. Please respond to the clarification below the line at the bottom and electronically sign. The CDI & [facility] Coding staff will review the response and follow-up if needed. Please note: Queries are made part of the Legal Health Record. If you have any questions, please contact the author of this message via ITS. Dr. Alejandro Henriquez: There is conflicting documentation in the medical record: Per the 09/27 attending progress note: Hypertension and Anemia are documented without further specificity. Per the 10/04 attending progress note: Chronic Kidney Disease stage III is documented. Per the cardiology consult the patient has no history of hypertension. History/Risk Factors: DM II, BPH, Hyperlipidemia, Occasional constipation and Anxiety. Clinical Indicators: Presented with nausea, vomiting & diarrhea, diagnosed with a small bowel obstruction & recurrent hemiperitoneum. Also being treated for acute renal failure with dehydration. BP: 131/72 - 85/53 (09/23) - 142/70 (09/26) - 158/77 (10/04) Lab findings: BUN 111 - 38^, Cr 5.18^ - (0.91), GFR 10 - 79 Treatment: IV Zofran, IV fl bolus x2, IV fluid rate 100, IV Insulin, IV Ms, IV Kcl, IV Cardizem drip (Atrial fibrillation & Atrial flutter documented), PICC line placement for TPN (started on 09/27) In your professional opinion, can you please clarify if you are treating the following? Hypertension ruled out Hypertensive Urgency Hypertension with Chronic Kidney Disease Hypertension without Chronic Kidney Disease Other, please specify Unable to determine If CKD is also present, please include the stage. (Previously documented as stage III) (Last Revision: October 2017) history of mild elevation of blood pressure in past- no prior treatment no history of chronic renal failure acute renal failure this admission. MTDD
[2018-10-05] MEDS: FLECAINIDE 50 MG TAB PO SCH ×2 (08:21→21:26)
[2018-10-05] MEDS: PANTOPRAZOLE 40 MG/10 ML VIAL IVP SCH ×2 (08:22→21:26)
[2018-10-05 08:32] LABS: Ionized Calcium 5.3 mg/dL (4.5-5.3)
[2018-10-05 08:45] LABS: Albumin 2.5 g/dL (3.5-5.0); Anion Gap 4 mmol/L; Blood Urea Nitrogen 34 mg/dL (9-20); Carbon Dioxide 29 mmol/L (22-30); Chloride 105 mmol/L (98-107); Glucose 154 mg/dL (74-99); Magnesium 1.5 mg/dL (1.6-2.3); Phosphorus 3.5 mg/dL (2.5-4.5); Potassium 4.2 mmol/L (3.5-5.1); Sodium 138 mmol/L (137-145); Triglycerides 147 mg/dL (<150)
[2018-10-05] MEDS: 1: MVI, ADULT NO.4 WITH VIT K 10 ML, TRACE (CONC-1ML/DOSE) 1 ML, POTASSIUM CHLORIDE 10 M IV SCH ×14 (09:47→23:29)
[2018-10-05] MEDS: LACTATED RINGERS 1,000 ML IV SCH ×2 (09:47→23:30)
[2018-10-05] MEDS: MAGNESIUM SULFATE-D5W PMX 1 GM in DEXTROSE/WATER 1 100ML.BAG IVPB SCH ×2 (09:48→12:12)
[2018-10-05] MEDS ORDERED: Magnesium Replacement Protocol 1 EACH MISC MISCELLANE PRN (11:05)
--- NOTE | 2018-10-05 11:09 | P.PN ---
<Patti Madrigal - Last Filed: 10/05/18 11:01> Subjective Progress Note Date: 10/05/18 CHIEF COMPLAINT: Intractable vomiting HISTORY OF PRESENT ILLNESS: Patient examined this morning. No family present. Patient up ambulating with physical therapy. NG has been discontinued. He is tolerating clear liquid diet. Denies abdominal pain. Denies nausea or vomiting. PHYSICAL EXAM: VITAL SIGNS: Currently stable. GENERAL: Well-developed in no acute distress. HEENT: No sclera icterus. Extraocular movements grossly intact. Moist buccal mucosa. Head is atraumatic, normocephalic. Hears conversational speech. No nasal drainage. NECK: Supple without lymphadenopathy. CHEST: Non-labored respirations and equal bilateral excursions. CARDIOVASCULAR: Regular rate with regular rhythm. Palpable 2+ radial pulses. ABDOMEN: Soft. Nondistended. Nontender. MUSCULOSKELETAL: No clubbing, cyanosis or edema. NEUROLOGIC: No focal or lateralizing signs. Cranial nerves II through XII avila ssly intact. PSYCH: Appropriate affect. Alert and oriented to person, place and time. SKIN: Well perfused. Good skin turgor. ASSESSMENT: 1. Nausea and vomiting, resolved 2. Retroperitoneal hematoma 3. Complete duodenal obstruction, resolved PLAN: 1. Advance diet to full liquid 2. Increase activity as tolerated 3. Replace magnesium 4. Patient only consumed 25% of breakfast per nursing charting. Continue PPN until PO intake is 50-75% then may wean off Nurse practitioner note has been reviewed by physician. Signing provider agrees with the documented findings, assessment, and plan of care. Objective - Vital Signs Vital signs: Vital Signs Temp 97.6 F 10/05/18 08:15 Pulse 86 10/05/18 08:15 Resp 16 10/05/18 08:15 BP 116/82 10/05/18 08:15 Pulse Ox 90 L 10/05/18 08:15 Intake & Output 10/04/18 10/05/18 10/05/18 18:59 06:59 18:59 Intake Total 120 Output Total 900 600 Balance -900 -600 120 Weight 68.1 kg 70.4 kg Intake: Oral 120 Output: Urine 900 600 Other: Voiding Method Incontinent Incontinent # Voids 0 0 0 - Labs CBC & Chem 7: 09/30/18 00:00 10/05/18 07:00 Labs: Abnormal Lab Results - Last 24 Hours (Table) 10/04/18 10/04/18 10/04/18 Range/Units 11:29 12:57 16:53 Chloride 109 H (98-107) mmol/L BUN 38 H (9-20) mg/dL Glucose 299 H (74-99) mg/dL POC Glucose (mg/dL) 277 H 262 H (75-99) mg/dL Magnesium (1.6-2.3) mg/dL Albumin (3.5-5.0) g/dL 10/04/18 10/05/18 10/05/18 Range/Units 23:58 06:06 06:07 Chloride (98-107) mmol/L BUN (9-20) mg/dL Glucose (74-99) mg/dL POC Glucose (mg/dL) 201 H 171 H 175 H (75-99) mg/dL Magnesium (1.6-2.3) mg/dL Albumin (3.5-5.0) g/dL 10/05/18 Range/Units 07:00 Chloride (98-107) mmol/L BUN 34 H (9-20) mg/dL Glucose 154 H (74-99) mg/dL POC Glucose (mg/dL) (75-99) mg/dL Magnesium 1.5 L (1.6-2.3) mg/dL Albumin 2.5 L (3.5-5.0) g/dL <Ronny Osorio - Last Filed: 10/05/18 15:59> Subjective As above. Patient doing well. Doing better with his full liquid intake. Denies pain. No nausea or vomiting. No reflux. Continue full liquids. Possible ECF tomorrow. Objective - Vital Signs Vital signs: Vital Signs Temp 97.6 F 10/05/18 08:15 Pulse 85 10/05/18 12:10 Resp 16 10/05/18 12:10 BP 135/81 10/05/18 12:10 Pulse Ox 90 L 10/05/18 12:10 Intake & Output 10/04/18 10/05/18 10/05/18 18:59 06:59 18:59 Intake Total 240 Output Total 900 600 Balance -900 -600 240 Weight 68.1 kg 70.4 kg Intake: Oral 240 Output: Urine 900 600 Other: Voiding Method Incontinent Incontinent # Voids 0 0 0 - Labs CBC & Chem 7: 09/30/18 00:00 10/05/18 07:00 Labs: Abnormal Lab Results - Last 24 Hours (Table) 10/04/18 10/04/18 10/05/18 Range/Units 16:53 23:58 06:06 BUN (9-20) mg/dL Glucose (74-99) mg/dL POC Glucose (mg/dL) 262 H 201 H 171 H (75-99) mg/dL Magnesium (1.6-2.3) mg/dL Albumin (3.5-5.0) g/dL 10/05/18 10/05/18 10/05/18 Range/Units 06:07 07:00 11:38 BUN 34 H (9-20) mg/dL Glucose 154 H (74-99) mg/dL POC Glucose (mg/dL) 175 H 212 H (75-99) mg/dL Magnesium 1.5 L (1.6-2.3) mg/dL Albumin 2.5 L (3.5-5.0) g/dL Assessment and Plan (1) Nausea & vomiting Current Visit: Yes Status: Acute Code(s): R11.2 - NAUSEA WITH VOMITING, UNSPECIFIED SNOMED Code(s): 09832726
[2018-10-05] MEDS ORDERED: MAGNESIUM SULFATE-D5W PMX 1 GM in DEXTROSE/WATER 1 100ML.BAG IVPB SCH (11:15)
--- NOTE | 2018-10-05 11:33 | P.PN ---
Subjective Patient had an upper GI yesterday showing some resolution to the up obstruction. Patient had bowel movement this morning. NG has been removed and patient is trialed on clear liquid diet. States he is no vomiting at this time Objective - Vital Signs Vital signs: Vital Signs Temp 97.6 F 10/05/18 08:15 Pulse 86 10/05/18 08:15 Resp 16 10/05/18 08:15 BP 116/82 10/05/18 08:15 Pulse Ox 90 L 10/05/18 08:15 Intake & Output 10/04/18 10/05/18 10/05/18 18:59 06:59 18:59 Intake Total 120 Output Total 900 600 Balance -900 -600 120 Weight 68.1 kg 70.4 kg Intake: Oral 120 Output: Urine 900 600 Other: Voiding Method Incontinent Incontinent # Voids 0 0 0 - Constitutional General appearance: Present: mild distress - EENT Eyes: Present: PERRLA Ears: bilateral: normal - Neck Neck: Present: normal ROM - Respiratory Respiratory: bilateral: CTA - Cardiovascular Rhythm: regular - Gastrointestinal General gastrointestinal: Present: normal bowel sounds, soft - Genitourinary Genitourinary Comment(s): Has condom catheter - Integumentary Integumentary: Present: normal - Neurologic Neurologic: Present: CNII-XII intact - Musculoskeletal Musculoskeletal: Present: generalized weakness - Psychiatric Psychiatric: Present: A&O x's 3, appropriate affect, intact judgment & insight (Upper GI obstruction improving slow transit) - Labs CBC & Chem 7: 09/30/18 00:00 10/05/18 07:00 Labs: Abnormal Lab Results - Last 24 Hours (Table) 10/04/18 10/04/18 10/04/18 Range/Units 11:29 12:57 16:53 Chloride 109 H (98-107) mmol/L BUN 38 H (9-20) mg/dL Glucose 299 H (74-99) mg/dL POC Glucose (mg/dL) 277 H 262 H (75-99) mg/dL Magnesium (1.6-2.3) mg/dL Albumin (3.5-5.0) g/dL 10/04/18 10/05/18 10/05/18 Range/Units 23:58 06:06 06:07 Chloride (98-107) mmol/L BUN (9-20) mg/dL Glucose (74-99) mg/dL POC Glucose (mg/dL) 201 H 171 H 175 H (75-99) mg/dL Magnesium (1.6-2.3) mg/dL Albumin (3.5-5.0) g/dL 10/05/18 Range/Units 07:00 Chloride (98-107) mmol/L BUN 34 H (9-20) mg/dL Glucose 154 H (74-99) mg/dL POC Glucose (mg/dL) (75-99) mg/dL Magnesium 1.5 L (1.6-2.3) mg/dL Albumin 2.5 L (3.5-5.0) g/dL Assessment and Plan Plan: Assessment small bowel obstruction to the duodenum secondary to mass effect from retroperitoneal bleed Acute renal failure secondary to renal azotemia Acute on chronic kidney disease stage III Hypertension with chronic kidney disease Weakness BPH Hypo-magnesium Paroxysmal atrial flutter Diabetes type 2 Recent retroperitoneal hematoma Plan Continue consultation with surgery cardiology nephrology
[2018-10-05 11:45] LABS: Glucose,Whole Blood 212 mg/dL (75-99)
--- NOTE | 2018-10-05 15:40 | CDI ---
Documentation Clarification Form Date: 10/05/2018 7:40:00 AM From: Melody Pearson CCS, CCDS Admit Date: 09/22/2018 7:19:00 PM Patient Name: Enrique Olvera Visit Number: [id number] Discharge Date: ATTENTION: The Clinical Documentation Specialists (CDI) and [facility] Coding Staff appreciate your assistance in clarifying documentation. Please respond to the clarification below the line at the bottom and electronically sign. The CDI & [facility] Coding staff will review the response and follow-up if needed. Please note: Queries are made part of the Legal Health Record. If you have any questions, please contact the author of this message via ITS. Dr. Alejandro Henriquez: There is conflicting documentation in the medical record: Per the 09/27 attending progress note: Hypertension and Anemia are documented without further specificity. Per the 10/04 attending progress note: Chronic Kidney Disease stage III is documented. Per the cardiology consult the patient has no history of hypertension. History/Risk Factors: DM II, BPH, Hyperlipidemia, Occasional constipation and Anxiety. Clinical Indicators: Presented with nausea, vomiting & diarrhea, diagnosed with a small bowel obstruction & recurrent hemiperitoneum. Also being treated for acute renal failure with dehydration. BP: 131/72 - 85/53 (09/23) - 142/70 (09/26) - 158/77 (10/04) Lab findings: BUN 111 - 38^, Cr 5.18^ - (0.91), GFR 10 - 79 Treatment: IV Zofran, IV fl bolus x2, IV fluid rate 100, IV Insulin, IV Ms, IV Kcl, IV Cardizem drip (Atrial fibrillation & Atrial flutter documented), PICC line placement for TPN (started on 09/27) In your professional opinion, can you please clarify if you are treating the following? Hypertensive Urgency Hypertension with Chronic Kidney Disease Hypertension without Chronic Kidney Disease o Other, please specify o Unable to determine If CKD is also present, please include the stage. (Previously documented as stage III) (Last Revision: October 2017) history of mild elevation of blood pressure in past- no prior treatment no history of chronic renal failure acute renal failure this admission MTDD
[2018-10-05 17:04] LABS: Glucose,Whole Blood 236 mg/dL (75-99)
[2018-10-05] MEDS: FAT EMULSION 20% 250 ML in EMPTY BAG 1 BAG IV SCH (17:21)
[2018-10-05 20:36] LABS: Glucose,Whole Blood 175 mg/dL (75-99)
[2018-10-05] MEDS: INSULIN DETEMIR (LEVEMIR) 100 UNIT/ML SYR SQ SCH (21:26)
[2018-10-05] MEDS: FINASTERIDE 5 MG TAB PO SCH (21:26)
[2018-10-05] MEDS: ATORVASTATIN 10 MG TAB PO SCH (21:26)
[2018-10-05] MEDS: LORazepam 2 MG/ML INJ IV PRN (21:27)
[2018-10-05 23:29] LABS: Glucose,Whole Blood 170 mg/dL (75-99)
[2018-10-06 05:58] LABS: Glucose,Whole Blood 202 mg/dL (75-99)
[2018-10-06] MEDS: INSULIN ASPART (NovoLOG) 100 UNIT/ML VIAL SQ SCH ×2 (06:27→13:17)
[2018-10-06] MEDS: LORazepam 2 MG/ML INJ IV PRN (06:41)
[2018-10-06 06:46] LABS: Anion Gap 8 mmol/L; Blood Urea Nitrogen 31 mg/dL (9-20); Calcium 8.8 mg/dL (8.4-10.2); Carbon Dioxide 24 mmol/L (22-30); Chloride 104 mmol/L (98-107); Glucose 202 mg/dL (74-99); Phosphorus 3.7 mg/dL (2.5-4.5); Potassium 4.6 mmol/L (3.5-5.1); Sodium 136 mmol/L (137-145)
[2018-10-06] MEDS: FLECAINIDE 50 MG TAB PO SCH (08:41)
[2018-10-06] MEDS: PANTOPRAZOLE 40 MG/10 ML VIAL IVP SCH (08:41)
[2018-10-06 11:38] LABS: Glucose,Whole Blood 202 mg/dL (75-99)
--- NOTE | 2018-10-06 11:58 | P.PN ---
<Patti Madrigal A - Last Filed: 10/06/18 11:55> Subjective Progress Note Date: 10/06/18 CHIEF COMPLAINT: Intractable vomiting HISTORY OF PRESENT ILLNESS: Patient examined this morning. Spouse at bedside. Patient tolerating full liquid diet. He reports eating all of his oatmeal this morning, but nothing else because he did not like anything else they sent him. Denies abdominal pain. Denies nausea or vomiting. PHYSICAL EXAM: VITAL SIGNS: Currently stable. GENERAL: Well-developed in no acute distress. HEENT: No sclera icterus. Extraocular movements grossly intact. Moist buccal mucosa. Head is atraumatic, normocephalic. Hears conversational speech. No nasal drainage. NECK: Supple without lymphadenopathy. CHEST: Non-labored respirations and equal bilateral excursions. CARDIOVASCULAR: Regular rate with regular rhythm. Palpable 2+ radial pulses. ABDOMEN: Soft. Nondistended. Nontender. MUSCULOSKELETAL: No clubbing, cyanosis or edema. NEUROLOGIC: No focal or lateralizing signs. Cranial nerves II through XII grossly intact. PSYCH: Appropriate affect. Alert and oriented to person, place and time. SKIN: Well perfused. Good skin turgor. ASSESSMENT: 1. Nausea and vomiting, resolved 2. Retroperitoneal hematoma 3. Complete duodenal obstruction, resolved PLAN: 1. Continue full liquid diet 2. Advised patient to speak with RN or kitchen staff regarding food choices he would prefer for lunch in attempts to increase PO intake 3. If patients PO intake increases for lunch, PPN may be weaned off today Nurse practitioner note has been reviewed by physician. Signing provider agrees with the documented findings, assessment, and plan of care. Objective - Vital Signs Vital signs: Vital Signs Temp 98 F 10/05/18 20:00 Pulse 101 H 10/06/18 04:00 Resp 16 10/06/18 04:00 BP 135/79 10/06/18 04:00 Pulse Ox 90 L 10/06/18 04:00 Intake & Output 10/05/18 10/06/18 10/06/18 18:59 06:59 18:59 Intake Total 2622 120 Output Total 500 Balance 2122 120 Weight 73 kg Intake: Intake, IV Titration 2262 Amount Lactated Ringers 1,000 ml 450 @ 75 mls/hr IV .[id number] [facility] Rx#:[id number] Magnesium Sulfate-D5w Pmx 200 1 gm In Dextrose/Water 1 100ml.bag @ 100 mls/hr IVPB Q1H [facility] Rx#: [id number] Mvi, Adult No.4 with Vit 600 K 10 ml Trace (Conc-1Ml/ Dose) 1 ml Potassium Chloride 10 meq Magnesium Sulfate gm 1.5 gm Sodium Chloride 2.5MEQ/ml Vial 20 meq In Amino Acid 5%- D15w+Lytes*E* 1,000 ml @ 75 mls/hr IV .BY DURATION [facility] Rx#:[id number] Sodium Acetate 24 meq In 1012 Amino Acid 5%-D15w+Lytes* E* 1,000 ml @ 75 mls/hr IV .BY DURATION [facility] Rx#: [id number] Oral 360 120 Output: Urine 500 Other: # Voids 0 500 # Bowel Movements 0 - Labs CBC & Chem 7: 09/30/18 00:00 10/06/18 05:25 Labs: Abnormal Lab Results - Last 24 Hours (Table) 10/05/18 10/05/18 10/05/18 Range/Units 16:53 20:30 23:26 Sodium (137-145) mmol/L BUN (9-20) mg/dL Glucose (74-99) mg/dL POC Glucose (mg/dL) 236 H 175 H 170 H (75-99) mg/dL 10/06/18 10/06/18 10/06/18 Range/Units 05:25 05:57 11:36 Sodium 136 L (137-145) mmol/L BUN 31 H (9-20) mg/dL Glucose 202 H (74-99) mg/dL POC Glucose (mg/dL) 202 H 202 H (75-99) mg/dL <Ronny Osorio - Last Filed: 10/06/18 18:37> Subjective As above. Patient doing well today. Stable for discharge. Outpatient follow- up advised. Gradually advance diet from full liquids to pured over the next 2- 5 days. Objective - Vital Signs Vital signs: Vital Signs Temp 97.6 F 10/06/18 12:00 Pulse 86 10/06/18 16:12 Resp 18 10/06/18 16:12 BP 132/80 10/06/18 16:12 Pulse Ox 97 10/06/18 16:12 Intake & Output 10/05/18 10/06/18 10/06/18 18:59 06:59 18:59 Intake Total 2622 1792 Output Total 500 Balance 2121 1791 Weight 73 kg 73 kg Intake: Intake, IV Titration 2262 1552 Amount Lactated Ringers 1,000 ml 450 525 @ 75 mls/hr IV .[id number] [facility] Rx#:[id number] Magnesium Sulfate-D5w Pmx 200 1 gm In Dextrose/Water 1 100ml.bag @ 100 mls/hr IVPB Q1H [facility] Rx#: [id number] Mvi, Adult No.4 with Vit 600 1027 K 10 ml Trace (Conc-1Ml/ Dose) 1 ml Potassium Chloride 10 meq Magnesium Sulfate gm 1.5 gm Sodium Chloride 2.5MEQ/ml Vial 20 meq In Amino Acid 5%- D15w+Lytes*E* 1,000 ml @ 75 mls/hr IV .BY DURATION [facility] Rx#:[id number] Sodium Acetate 24 meq In 1012 Amino Acid 5%-D15w+Lytes* E* 1,000 ml @ 75 mls/hr IV .BY DURATION [facility] Rx#: [id number] Oral 360 240 Output: Urine 500 Other: Voiding Method Incontinent # Voids 0 500 # Bowel Movements 0 - Labs CBC & Chem 7: 09/30/18 00:00 10/06/18 05:25 Labs: Abnormal Lab Results - Last 24 Hours (Table) 10/05/18 10/05/18 10/06/18 Range/Units 20:30 23:26 05:25 Sodium 136 L (137-145) mmol/L BUN 31 H (9-20) mg/dL Glucose 202 H (74-99) mg/dL POC Glucose (mg/dL) 175 H 170 H (75-99) mg/dL 10/06/18 10/06/18 10/06/18 Range/Units 05:57 11:36 16:56 Sodium (137-145) mmol/L BUN (9-20) mg/dL Glucose (74-99) mg/dL POC Glucose (mg/dL) 202 H 202 H 104 H (75-99) mg/dL Assessment and Plan (1) Nausea & vomiting Status: Acute Code(s): R11.2 - NAUSEA WITH VOMITING, UNSPECIFIED SNOMED Code(s): 07171127
--- NOTE | 2018-10-06 12:01 | P.PN ---
Subjective Patient up ambulating with physical therapy. States no further vomiting. Patient has had 2 bowel movements. Nursing weaning TPN. Discussed with hopeful transferred to [facility] for rehab Objective - Vital Signs Vital signs: Vital Signs Temp 98 F 10/05/18 20:00 Pulse 101 H 10/06/18 04:00 Resp 16 10/06/18 04:00 BP 135/79 10/06/18 04:00 Pulse Ox 90 L 10/06/18 04:00 Intake & Output 10/05/18 10/06/18 10/06/18 18:59 06:59 18:59 Intake Total 2622 120 Output Total 500 Balance 2122 120 Weight 73 kg Intake: Intake, IV Titration 2262 Amount Lactated Ringers 1,000 ml 450 @ 75 mls/hr IV .[id number] DUSTY Rx#:[id number] Magnesium Sulfate-D5w Pmx 200 1 gm In Dextrose/Water 1 100ml.bag @ 100 mls/hr IVPB Q1H DUSTY Rx#: [id number] Mvi, Adult No.4 with Vit 600 K 10 ml Trace (Conc-1Ml/ Dose) 1 ml Potassium Chloride 10 meq Magnesium Sulfate gm 1.5 gm Sodium Chloride 2.5MEQ/ml Vial 20 meq In Amino Acid 5%- D15w+Lytes*E* 1,000 ml @ 75 mls/hr IV .BY DURATION DUSTY Rx#:[id number] Sodium Acetate 24 meq In 1012 Amino Acid 5%-D15w+Lytes* E* 1,000 ml @ 75 mls/hr IV .BY DURATION DUSTY Rx#: [id number] Oral 360 120 Output: Urine 500 Other: # Voids 0 500 # Bowel Movements 0 - Constitutional General appearance: Present: mild distress - EENT Eyes: Present: PERRLA Ears: bilateral: normal - Neck Neck: Present: normal ROM - Respiratory Respiratory: bilateral: CTA - Cardiovascular Rhythm: regular - Gastrointestinal General gastrointestinal: Present: normal bowel sounds, soft - Integumentary Integumentary: Present: normal - Neurologic Neurologic: Present: CNII-XII intact - Musculoskeletal Musculoskeletal Comment(s): Patient able to ambulate with walker assistance - Psychiatric Psychiatric: Present: A&O x's 3, appropriate affect, intact judgment & insight - Labs CBC & Chem 7: 09/30/18 00:00 10/06/18 05:25 Labs: Abnormal Lab Results - Last 24 Hours (Table) 10/05/18 10/05/18 10/05/18 Range/Units 16:53 20:30 23:26 Sodium (137-145) mmol/L BUN (9-20) mg/dL Glucose (74-99) mg/dL POC Glucose (mg/dL) 236 H 175 H 170 H (75-99) mg/dL 10/06/18 10/06/18 10/06/18 Range/Units 05:25 05:57 11:36 Sodium 136 L (137-145) mmol/L BUN 31 H (9-20) mg/dL Glucose 202 H (74-99) mg/dL POC Glucose (mg/dL) 202 H 202 H (75-99) mg/dL Assessment and Plan Plan: Assessment Small bowel obstruction resolving duodenal History of retroperitoneal hematoma Acute renal failure secondary to renal azotemia resolving diabetes type 2 Intermittent paroxysmal atrial flutter Hypertension with chronic kidney disease stage III Weakness BPH Hypo-magnesium corrected Plan Hopeful discharge to [facility] for rehab
--- NOTE | 2018-10-06 12:13 | P.DS ---
Providers Date of admission: 09/22/18 19:19 Attending physician: Alejandro Henriquez Consults: 09/22/18 19:34 Consult Physician Stat Consulting Provider: Ronny Osorio Consult Reason/Comments: Hx Abdominal hemorrhage Do you want consulting provider notified?: Yes Consult Physician Stat Consulting Provider: Poonam Jennings Consult Reason/Comments: ARF Do you want consulting provider notified?: Yes 09/22/18 19:38 Consult Physician Stat Consulting Provider: Rudy Andino Consult Reason/Comments: Elevated trop, ARF Do you want consulting provider notified?: Yes 09/28/18 09:37 Consult Physician Routine Consulting Provider: Scott Lee Consult Reason/Comments: urinating around reynolds cath, male external cath on at this time Do you want consulting provider notified?: Yes Primary care physician: Alejandro Henriquez Hospital Course: 83-year-old male was admitted through the emergency room with severe vomiting and nausea. Found to be obstructed the duodenum. History of recto peritoneal hematoma suspected compressing bowel. Patient was in acute renal failure resolved. Had consultation with nephrology surgery and cardiology. Expecting transfer to [facility] for rehab. Patient had EGD upper GI. Patient had urology consultation secondary to urinary retention. Patient was also started on TPN Assessment Small bowel obstruction secondary to recent retroperitoneal hematoma duodenum resolved Acute respiratory failure secondary to renal azotemia resolving Diabetes type 2 Recent retroperitoneal hematoma Been intermittent paroxysmal atrial flutter Hypertension with chronic kidney disease stage III Plan Continue advance diet Awaiting discharge clearance from surgeon Hopeful discharge soon to [facility] Patient Condition at Discharge: Good Plan - Discharge Summary Discharge Rx Participant: No New Discharge Prescriptions: New Insulin Detemir (Levemir) [Levemir] 10 unit SQ HS syr Pantoprazole [Protonix] 0 mg PO DAILY 30 Days #30 tablet. Flecainide [Tambocor] 50 mg PO Q12HR tab Acetaminophen Tab [Tylenol] 650 mg PO Q6HR PRN tab PRN Reason: Mild Pain Or Fever > 100.5 Continue Multivitamins, Thera [Multivitamin (formulary)] 1 tab PO DAILY Cholecalciferol [Vitamin D3] 1,000 unit PO DAILY Finasteride 5 mg PO HS Simvastatin 20 mg PO HS Discontinued Aspirin [Adult Low Dose Aspirin EC] 81 mg PO HS metFORMIN HCL 500 mg PO QAM EPINEPHrine (Auto Inject) [Epipen] 1 dose IM DAILY PRN PRN Reason: Allergic Reaction Cephalexin [Keflex] 500 mg PO Q6H No Action metFORMIN HCL 1,000 mg PO HS Discharge Medication List Cholecalciferol [Vitamin D3] 1,000 unit PO DAILY 11/06/15 [History] Finasteride 5 mg PO HS 11/06/15 [History] Multivitamins, Thera [Multivitamin (formulary)] 1 tab PO DAILY 11/06/15 [History] Simvastatin 20 mg PO HS 11/06/15 [History] metFORMIN HCL 1,000 mg PO HS 11/06/15 [History] Acetaminophen Tab [Tylenol] 650 mg PO Q6HR PRN tab 10/06/18 [Rx] Flecainide [Tambocor] 50 mg PO Q12HR tab 10/06/18 [Rx] Insulin Detemir (Levemir) [Levemir] 10 unit SQ HS syr 10/06/18 [Rx] Pantoprazole [Protonix] 0 mg PO DAILY 30 Days #30 tablet. 10/06/18 [Rx] Follow up Appointment(s)/Referral(s): [facility] [Provider Group] - 2 Weeks Ronny Osorio MD [Medical Doctor] - 1 Week Alejandro Henriquez MD [Primary Care Provider] - 1 Week (Please follow up within one week after being discharged from [facility].) [facility], [NON-STAFF] - 1 Week Melo Phelan DO [STAFF PHYSICIAN] - 3 Weeks Yrn Hong MD [STAFF PHYSICIAN] - 1 Week Patient Instructions/Handouts: Bowel Obstruction (DC) Activity/Diet/Wound Care/Special Instructions: Nalini
[2018-10-06 13:40] VITALS: RESP 18
[2018-10-06 13:45] VITALS: TEMP 97.6
[2018-10-06 14:47] VITALS: BMI 27.6
[2018-10-06 16:13] VITALS: BP 132/80; PULSE 86
[2018-10-06 17:04] LABS: Glucose,Whole Blood 104 mg/dL (75-99)
--- NOTE | 2018-10-07 09:32 | CDI ---
Documentation Clarification Form Date: 10/07/18 From: Minna Miller Coco Rojas, Neurocritical Care Physician Hours-8:30 am & 5 pm M-F Admit Date: 09/22/2018 7:19:00 PM Patient Name: Enrique Olvera Visit Number: [id number] Discharge Date: 10/06/2018 5:26:00 PM ATTENTION: The Clinical Documentation Specialists (CDI) and [facility] Coding Staff appreciate your assistance in clarifying documentation. Please respond to the clarification below the line at the bottom and electronically sign. The CDI & [facility] Coding staff will review the response and follow-up if needed. Please note: Queries are made part of the Legal Health Record. If you have any questions, please contact the author of this message via ITS. Dr. Alejandro Henriquez Conflicting documentation has been found in the medical record: The discharge summary documents acute respiratory failure secondary to renal azotemia resolviing. PNs 09/24, 09/25, 09/26, 10/01, 10/02, 10/03, 10/05 & 10/06 document acute renal failure secondary to renal azotemia along with secondary acute tubular necrosis History/Risk Factors: obstruction of duodenum, retroperitoneal hematoma Clinical Indicators: no ABGs Treatment: IV fluids, nephrotoxic agents were discontinued In your opinion, what is the most clinically appropriate diagnosis for this patient? Acute respiratory failure ruled out Acute respiratory failure ruled in Other explanation of clinical findings Unable to determine (no explanation for clinical findings) acute respiratory failure ruled in. BL MTDD
--- NOTE | 2018-10-07 17:25 | P.PN ---
Progress Note - Text Addendum Correction to diagnosis Acute renal failure not respiratory failure
== END 2018-10-06 17:26 | DRG 380 ==
LOC: EC 15:48 → 3SCARD 19:19
PROVIDERS: ADMIT Family Medicine; ATTEND Family Medicine
PROC: 0D9670Z Drainage of Stomach with Drainage Device, Via Natural or Artificial Opening (ICD-10-PCS; principal; 2018-09-23)
PROC: 02HV33Z Insertion of Infusion Device into Superior Vena Cava, Percutaneous Approach (ICD-10-PCS; 2018-09-27)
PROC: 3E0436Z Introduction of Nutritional Substance into Central Vein, Percutaneous Approach (ICD-10-PCS; 2018-09-27)
PROC: 0T2BX0Z Change Drainage Device in Bladder, External Approach (ICD-10-PCS; 2018-09-28)
PROC: 0DB78ZX Excision of Stomach, Pylorus, Via Natural or Artificial Opening Endoscopic, Diagnostic (ICD-10-PCS; 2018-09-30)
DX: K31.5 Obstruction of duodenum (principal); N17.0 Acute kidney failure with tubular necrosis; K66.1 Hemoperitoneum; E87.3 Alkalosis; E87.1 Hypo-osmolality and hyponatremia; E87.0 Hyperosmolality and hypernatremia; J98.11 Atelectasis; I48.92 Unspecified atrial flutter; I95.9 Hypotension, unspecified; I48.91 Unspecified atrial fibrillation; E11.22 Type 2 diabetes mellitus with diabetic chronic kidney disease; E87.8 Other disorders of electrolyte and fluid balance, not elsewhere classified; E86.0 Dehydration; E83.42 Hypomagnesemia; N18.3 Chronic kidney disease, stage 3 (moderate); I12.9 Hypertensive chronic kidney disease with stage 1 through stage 4 chronic kidney disease, or unspecified chronic kidney disease; I45.10 Unspecified right bundle-branch block; D64.9 Anemia, unspecified; D72.829 Elevated white blood cell count, unspecified; E87.6 Hypokalemia; E78.5 Hyperlipidemia, unspecified; N40.1 Benign prostatic hyperplasia with lower urinary tract symptoms; R33.8 Other retention of urine; K57.10 Diverticulosis of small intestine without perforation or abscess without bleeding; K29.70 Gastritis, unspecified, without bleeding; K44.9 Diaphragmatic hernia without obstruction or gangrene; L23.9 Allergic contact dermatitis, unspecified cause; K82.8 Other specified diseases of gallbladder; J40 Bronchitis, not specified as acute or chronic; K59.00 Constipation, unspecified; R77.8 Other specified abnormalities of plasma proteins; F17.200 Nicotine dependence, unspecified, uncomplicated; Z79.82 Long term (current) use of aspirin; Z79.84 Long term (current) use of oral hypoglycemic drugs; Z79.899 Other long term (current) drug therapy; Z96.653 Presence of artificial knee joint, bilateral; Z86.59 Personal history of other mental and behavioral disorders; Z98.42 Cataract extraction status, left eye; Z98.41 Cataract extraction status, right eye; Z91.030 Bee allergy status; Z80.3 Family history of malignant neoplasm of breast; Z82.69 Family history of other diseases of the musculoskeletal system and connective tissue; Z82.61 Family history of arthritis; Z82.49 Family history of ischemic heart disease and other diseases of the circulatory system
CPT/HCPCS: 36415; 36573; 43239; 51702; 71045; 71046; 74176; 74240; 74245; 76700; 80048; 80053; 80061; 81001; 82009; 82040; 82150; 82330; 83036; 83690; 83735; 84100; 84132; 84478; 84484; 85025; 85610; 85730; 86850; 86900; 86901; 88305; 93005; 93306; 94760; 96361; 96374; 96376; 99285

== ENCOUNTER → 2018-10-20 | Outpatient (CLI) | payer MEDICARE ==
[2018-10-20 10:38] LABS: Basophils % (A) 1 %; Eosinophils # (A) 0.6 k/uL (0-0.7); Eosinophils % (A) 7 %; HCT 33.5 % (39.0-53.0); HGB 10.4 gm/dL (13.0-17.5); Hypochromasia Slight; Lymphocytes # (A) 1.4 k/uL (1.0-4.8); Lymphocytes % (A) 18 %; MCH 29.9 pg (25.0-35.0); MCV 96.7 fL (80.0-100.0); Mean Platelet Volume 7.7; Monocytes # (A) 0.5 k/uL (0-1.0); Monocytes % (A) 6 %; Neutrophils # (A) 5.3 k/uL (1.3-7.7); Neutrophils % (A) 66 %; Platelet Count 374 k/uL (150-450); RBC 3.46 m/uL (4.30-5.90); RDW 14.6 % (11.5-15.5); WBC 8.1 k/uL (3.8-10.6)
== END | disposition home or self-care (01) ==
LOC: LABWHC1 10:11
PROVIDERS: ATTEND Family Medicine
DX: I10 Essential (primary) hypertension (principal)
CPT/HCPCS: 36415; 85025

== ENCOUNTER → 2018-12-21 | Outpatient (CLI) | payer MEDICARE ==
[2018-12-21 13:05] LABS: Basophils % (A) 0 %; Eosinophils # (A) 0.3 k/uL (0-0.7); Eosinophils % (A) 4 %; HGB 13.2 gm/dL (13.0-17.5); Lymphocytes # (A) 1.4 k/uL (1.0-4.8); Lymphocytes % (A) 20 %; MCH 30.3 pg (25.0-35.0); MCHC 32.2 g/dL (31.0-37.0); MCV 94.2 fL (80.0-100.0); Mean Platelet Volume 7.6; Monocytes # (A) 0.4 k/uL (0-1.0); Monocytes % (A) 6 %; Neutrophils # (A) 4.6 k/uL (1.3-7.7); Neutrophils % (A) 67 %; Platelet Count 306 k/uL (150-450); RBC 4.35 m/uL (4.30-5.90); RDW 14.5 % (11.5-15.5); WBC 6.8 k/uL (3.8-10.6)
[2018-12-21 18:29] LABS: Anion Gap 6.9 mmol/L (4.00-12.00); Calcium 9.8 mg/dL (8.7-10.3); Carbon Dioxide 26.1 mmol/L (21.6-31.8); Potassium 4.8 mmol/L (3.5-5.5); Total Bilirubin 0.4 mg/dL (0.3-1.2)
== END | disposition home or self-care (01) ==
LOC: LABWHC1 11:37
PROVIDERS: ATTEND Physician Assistant
DX: E11.9 Type 2 diabetes mellitus without complications (principal)
CPT/HCPCS: 36415; 80053; 82043; 82570; 83036; 84443; 85025

== ENCOUNTER → 2019-04-20 | Outpatient (CLI) | payer MEDICARE ==
[2019-04-20 12:00] LABS: Basophils % (A) 1 %; Eosinophils # (A) 0.3 k/uL (0-0.7); Eosinophils % (A) 4 %; HCT 40.3 % (39.0-53.0); HGB 13.3 gm/dL (13.0-17.5); Lymphocytes # (A) 1.4 k/uL (1.0-4.8); Lymphocytes % (A) 21 %; MCH 31.5 pg (25.0-35.0); MCV 95.4 fL (80.0-100.0); Mean Platelet Volume 7.2; Monocytes # (A) 0.5 k/uL (0-1.0); Monocytes % (A) 7 %; Neutrophils # (A) 4.2 k/uL (1.3-7.7); Neutrophils % (A) 64 %; Platelet Count 264 k/uL (150-450); RBC 4.22 m/uL (4.30-5.90); RDW 13.8 % (11.5-15.5); WBC 6.6 k/uL (3.8-10.6)
[2019-04-20 21:35] LABS: Hemoglobin A1C 6.8 % (4.0-6.0)
[2019-04-21 01:45] LABS: African American GFR (CKD) 91.9 (60.0-200.0); Albumin/Globulin Ratio 2.22 (1.60-3.17); Anion Gap 6.2 mmol/L (4.00-12.00); Calcium 9.6 mg/dL (8.7-10.3); Carbon Dioxide 26.8 mmol/L (21.6-31.8); Chol/HDL Ratio 2.54; Globulin 1.8 g/dL (1.6-3.3); Total Bilirubin 0.4 mg/dL (0.3-1.2); Total Protein 5.8 g/dL (6.2-8.2)
== END | disposition home or self-care (01) ==
LOC: LABWHC1 10:44
PROVIDERS: ATTEND Family Medicine
DX: E11.9 Type 2 diabetes mellitus without complications (principal)
CPT/HCPCS: 36415; 80053; 80061; 83036; 85025

== ENCOUNTER → 2019-08-25 | Outpatient (CLI) | payer MEDICARE ==
[2019-08-25 11:47] LABS: Basophils % (A) 0 %; Eosinophils # (A) 0.3 k/uL (0-0.7); Eosinophils % (A) 4 %; HCT 43.5 % (39.0-53.0); HGB 13.7 gm/dL (13.0-17.5); Lymphocytes # (A) 1.2 k/uL (1.0-4.8); Lymphocytes % (A) 19 %; MCH 30.4 pg (25.0-35.0); MCHC 31.4 g/dL (31.0-37.0); MCV 96.7 fL (80.0-100.0); Mean Platelet Volume 7.8; Monocytes # (A) 0.4 k/uL (0-1.0); Monocytes % (A) 6 %; Neutrophils # (A) 4.4 k/uL (1.3-7.7); Neutrophils % (A) 68 %; Platelet Count 288 k/uL (150-450); RBC 4.49 m/uL (4.30-5.90); RDW 13.1 % (11.5-15.5); WBC 6.4 k/uL (3.8-10.6)
[2019-08-25 16:51] LABS: African American GFR (CKD) 96.4 (60.0-200.0); Albumin 4.2 g/dL (3.80-4.90); Albumin/Globulin Ratio 2.47 (1.60-3.17); Anion Gap 5.9 mmol/L (4.00-12.00); BUN/Creat Ratio 28.75 Ratio (12.00-20.00); Calcium 9.5 mg/dL (8.7-10.3); Carbon Dioxide 28.1 mmol/L (21.6-31.8); Chol/HDL Ratio 2.64; Globulin 1.7 g/dL (1.6-3.3); LDL Cholesterol,Calculated 69.6 mg/dL (0.0-131.0); Non-African American GFR(CKD) 83.2 (60.0-200.0); Potassium 4.8 mmol/L (3.5-5.5); Total Bilirubin 0.3 mg/dL (0.3-1.2); Total Protein 5.9 g/dL (6.2-8.2); VLDL Calculation 30.4 mg/dL (5.00-40.00)
[2019-08-25 19:36] LABS: Hemoglobin A1C 7.7 % (4.0-6.0)
== END | disposition home or self-care (01) ==
LOC: LABWHC1 10:41
PROVIDERS: ATTEND Family Medicine
DX: N40.0 Benign prostatic hyperplasia without lower urinary tract symptoms (principal)
CPT/HCPCS: 36415; 80053; 80061; 83036; 84153; 85025

== ENCOUNTER → 2020-03-05 | Outpatient (CLI) | payer MEDICARE ==
[2020-03-05 12:44] LABS: Basophils % (A) 0 %; Eosinophils # (A) 0.2 k/uL (0-0.7); Eosinophils % (A) 3 %; HCT 42.5 % (39.0-53.0); HGB 13.6 gm/dL (13.0-17.5); Lymphocytes # (A) 1.4 k/uL (1.0-4.8); Lymphocytes % (A) 20 %; MCH 30.5 pg (25.0-35.0); MCHC 31.9 g/dL (31.0-37.0); MCV 95.6 fL (80.0-100.0); Mean Platelet Volume 8.4; Monocytes # (A) 0.5 k/uL (0-1.0); Monocytes % (A) 7 %; Neutrophils # (A) 4.5 k/uL (1.3-7.7); Neutrophils % (A) 66 %; Platelet Count 262 k/uL (150-450); RBC 4.45 m/uL (4.30-5.90); RDW 13.5 % (11.5-15.5); WBC 6.8 k/uL (3.8-10.6)
[2020-03-05 19:34] LABS: African American GFR (CKD) 96.4 (60.0-200.0); Albumin 4.1 g/dL (3.80-4.90); Albumin/Globulin Ratio 2.16 (1.60-3.17); Anion Gap 7.7 mmol/L (4.00-12.00); Calcium 9.8 mg/dL (8.7-10.3); Carbon Dioxide 26.3 mmol/L (21.6-31.8); Chol/HDL Ratio 2.85; Globulin 1.9 g/dL (1.6-3.3); LDL Cholesterol,Calculated 62.6 mg/dL (0.0-131.0); Non-African American GFR(CKD) 83.2 (60.0-200.0); Potassium 4.8 mmol/L (3.5-5.5); Total Bilirubin 0.5 mg/dL (0.3-1.2); VLDL Calculation 26.4 mg/dL (5.00-40.00)
[2020-03-05 19:42] LABS: T4, Free (Free Thyroxine) 1.2 ng/dL (0.80-1.80)
[2020-03-05 21:32] LABS: Hemoglobin A1C 7.2 % (4.0-6.0)
== END | disposition home or self-care (01) ==
LOC: LABWHC1 10:49
PROVIDERS: ATTEND Internal Medicine Cardiovascular Disease
DX: E78.2 Mixed hyperlipidemia (principal); E11.8 Type 2 diabetes mellitus with unspecified complications
CPT/HCPCS: 36415; 80053; 80061; 83036; 84439; 84443; 85025

== ENCOUNTER → 2020-07-16 | Outpatient (CLI) | payer MEDICARE ==
[2020-07-16 10:57] LABS: Basophils % (A) 0 %; Eosinophils # (A) 0.3 k/uL (0-0.7); Eosinophils % (A) 4 %; HCT 44.8 % (39.0-53.0); HGB 14.2 gm/dL (13.0-17.5); Lymphocytes # (A) 1.4 k/uL (1.0-4.8); Lymphocytes % (A) 21 %; MCH 30.1 pg (25.0-35.0); MCHC 31.7 g/dL (31.0-37.0); Mean Platelet Volume 7.7; Monocytes # (A) 0.4 k/uL (0-1.0); Monocytes % (A) 6 %; Neutrophils # (A) 4.3 k/uL (1.3-7.7); Neutrophils % (A) 65 %; Platelet Count 281 k/uL (150-450); RBC 4.71 m/uL (4.30-5.90); RDW 13.5 % (11.5-15.5); WBC 6.6 k/uL (3.8-10.6)
[2020-07-16 16:48] LABS: Hemoglobin A1C 7.6 % (4.0-6.0)
[2020-07-16 17:12] LABS: African American GFR (CKD) 95.7 (60.0-200.0); Albumin 4.2 g/dL (3.80-4.90); Albumin/Globulin Ratio 2.1 (1.60-3.17); Anion Gap 6.3 mmol/L (4.00-12.00); Calcium 10.1 mg/dL (8.7-10.3); Carbon Dioxide 28.7 mmol/L (21.6-31.8); Chol/HDL Ratio 2.75; LDL Cholesterol,Calculated 64.6 mg/dL (0.0-131.0); Non-African American GFR(CKD) 82.6 (60.0-200.0); Potassium 4.7 mmol/L (3.5-5.5); Prostate Specific Antigen 1.3 ng/mL (0.0-6.5); Total Bilirubin 0.5 mg/dL (0.2-1.2); Total Protein 6.2 g/dL (6.2-8.2); VLDL Calculation 33.4 mg/dL (5.00-40.00)
== END | disposition home or self-care (01) ==
LOC: LABWHC1 09:47
PROVIDERS: ATTEND Family Medicine
DX: E11.8 Type 2 diabetes mellitus with unspecified complications (principal); Z12.5 Encounter for screening for malignant neoplasm of prostate
CPT/HCPCS: 36415; 80053; 80061; 83036; 84153; 85025

== ENCOUNTER → 2020-10-30 | Outpatient (CLI) | payer MEDICARE ==
[2020-10-30 18:22] LABS: Basophils # (A) 0.04 X 10*3/uL (0.00-0.10); Basophils % (A) 0.6 %; Eosinophils # (A) 0.39 X 10*3/uL (0.04-0.35); Eosinophils % (A) 5.4 %; HCT 44.3 % (39.6-50.0); HGB 13.9 g/dL (13.0-17.0); Lymphocytes % (A) 19.4 %; MCH 30.8 pg (27.0-32.0); MCHC 31.4 g/dL (32.0-37.0); Mean Platelet Volume 11.1 fL (9.5-12.2); Monocytes # (A) 0.68 X 10*3/uL (0.20-1.00); Monocytes % (A) 9.4 %; Neutrophils # (A) 4.68 X 10*3/uL (1.80-7.70); Neutrophils % (A) 64.8 %; Platelet Count 272 X 10*3/uL (140-440); RBC 4.52 X 10*6/uL (4.40-5.60); RDW 13.8 % (11.5-14.5); WBC 7.22 X 10*3/uL (4.50-10.00)
[2020-10-31 03:06] LABS: African American GFR (CKD) 91.2 (60.0-200.0); Albumin 4.2 g/dL (3.80-4.90); Albumin/Globulin Ratio 2.1 (1.60-3.17); Anion Gap 11.1 mmol/L (4.00-12.00); BUN/Creat Ratio 22.22 Ratio (12.00-20.00); Calcium 10.2 mg/dL (8.7-10.3); Carbon Dioxide 23.9 mmol/L (21.6-31.8); Chol/HDL Ratio 3.42; Non-African American GFR(CKD) 78.7 (60.0-200.0); Potassium 4.8 mmol/L (3.5-5.5); Total Bilirubin 0.4 mg/dL (0.2-1.2); Total Protein 6.2 g/dL (6.2-8.2)
== END | disposition home or self-care (01) ==
LOC: LABWHC1 10:32
PROVIDERS: ATTEND Nurse Practitioner Family
DX: E11.9 Type 2 diabetes mellitus without complications (principal)
CPT/HCPCS: 36415; 80053; 80061; 83036; 85025

== ENCOUNTER → 2020-12-06 | Outpatient (CLI) | payer MEDICARE ==
[~2020-12-06] MED LIST: REGADENOSON 0.4 MG/5 ML SYRINGE IV PRN
--- NOTE | 2020-12-06 12:20 | P.STRESS ---
- Stress Test Note Stress Test Results/Findings: Exam Performed: NM stress lexiscan cardiolite Exam Date: 12/06/20 Reason for Exam: RBBB Height: 5 ft 4 in Weight: 80 kg Protocol: LEXISCAN CARDIOLITE Stage: NA Duration of Exercise: NA Resting Heart Rate: 76 Resting Blood Pressure: 155/105 Maximum Achieved Heart Rate: 109 Maximum Achieved Blood Pressure: 188/96 85% PMHR: 116 100% PMHR: 137 METS: NA Technologist Comment: Stress Test Results/Findings: This is a 85-year-old gentleman with history of diabetes, hypercholesterolemia and smoking history. Being evaluated for symptoms of shortness of breath. Stress data: Baseline EKG showed sinus rhythm with evidence of right bundle- branch block. A standard dose of Lexiscan was infused. EKGs taken during and after infusion did not reveal any changes of ischemia. It. Patient did not express any chest pain. Final impression: #1. Negative Lexiscan stress test #2. Report on the nuclear images to be provided but the radiologist
--- NOTE | 2020-12-07 13:32 | NM ---
"EXAMINATION TYPE: NM stress lexiscan cardiolite DATE OF EXAM: 12/06/2020 COMPARISON: NONE HISTORY: I 45.10 TECHNIQUE: After the intravenous administration of 9.5 mCi Tc 99m Sestamibi - Cardiolite resting SPE CT images acquired 45 minutes post injection. The patient received 0.4mg Lexiscan, 25.9 mCi Tc 99m Sestamibi - Stress images obtained [address] injection FINDINGS: Review of stress and rest SPECT images demonstrates decreased uptake along the inferior wall left anna tricle on stress and rest images, some decreased uptake noted along the inferior lateral wall greater on stress than on rest images especially towards the base of the heart, there is decreased uptake al gino the apex on stress and rest images. Gated analysis shows normal wall motion with an estimated le ft ventricular ejection fraction of 69 %. 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 Correlate w ith echocardiographic studies for possible elevated ejection fraction No scintigraphic evidence for reversible ischemia. A Yellow level critical message alert has been initiated for Alejandro Henriquez MD via the [employer] [facility] 0 | Critical Results System on 12/07/2020 1:30 PM. This message alert has been sent to Alejandro Henriquez MD via the preferences provided by the clinician for the receipt of Radiology Critical Findings. [facility] ID [id number]."
== END | disposition home or self-care (01) ==
LOC: RADNMMAIN 08:05
PROVIDERS: ATTEND Family Medicine
DX: I45.10 Unspecified right bundle-branch block (principal); I25.9 Chronic ischemic heart disease, unspecified
CPT/HCPCS: 93017; 78452; A9500; J2785

== ENCOUNTER → 2020-12-10 | Outpatient (CLI) | payer MEDICARE ==
--- NOTE | 2020-12-11 11:16 | ECHOF ---
Referral Reason:R94.39 Abn stress test MEASUREMENTS -------- HEIGHT: 167.6 cm WEIGHT: 81.6 kg BP: IVSd: 1.4 cm (0.6 - 1.1) LVIDd: 3.2 cm (3.9 - 5.3) LVPWd: 1.1 cm (0.6 - 1.1) IVSs: 1.6 cm LVIDs: 2.3 cm LVPWs: 1.1 cm LAESV Index (A-L): 16.52 ml/m Ao Diam: 3.3 cm (2.0 - 3.7) AV Cusp: 1.6 cm (1.5 - 2.6) MV E Kristopher: 0.63 m/s MV DecT: 234 ms MV A Kristopher: 0.92 m/s MV E/A Ratio: 0.69 RAP: 5.00 mmHg RVSP: 32.01 mmHg FINDINGS -------- Atrial fibrillation. This was a technically difficult study with suboptimal parasternal views. The left ventricular size is normal. There is mild concentric left ventricular hypertrophy. Overa ll left ventricular systolic function is low-normal with, an EF between 50 - 55 %. The right ventricle is normal in size. Normal LA size by volume 22+/-6 ml/m2. The right atrial size is normal. Interatrial and interventricular septum intact. The aortic valve was not well visualized. There is no evidence of aortic regurgitation. There is no evidence of aortic stenosis. Mild mitral regurgitation is present. Mild tricuspid regurgitation present. There is no evidence of pulmonary hypertension. The right v entricular systolic pressure, as measured by Doppler, is 32.01mmHg. The pulmonic valve was not well visualized. The aortic root size is normal. Normal inferior vena cava with normal inspiratory collapse consistent with estimated right atrial pre ssure of 5 mmHg. There is no pericardial effusion. CONCLUSIONS -------- 1. The left ventricular size is normal. 2. There is mild concentric left ventricular hypertrophy. 3. Overall left ventricular systolic function is low-normal with, an EF between 50 - 55 %. 4. Mild mitral regurgitation is present. 5. Mild tricuspid regurgitation present. MACHINE PRECISION ETCHER: Mariann Baer [facility]
== END | disposition home or self-care (01) ==
LOC: RADECHMAIN 14:53
PROVIDERS: ATTEND Family Medicine
DX: I08.1 Rheumatic disorders of both mitral and tricuspid valves (principal)
CPT/HCPCS: 93306

== ENCOUNTER → 2020-12-20 | Outpatient (CLI) | payer MEDICARE ==
[2020-12-20 14:17] LABS: HCT 41.5 % (39.0-53.0); MCHC 33.8 g/dL (31.0-37.0); MCV 94.7 fL (80.0-100.0); Mean Platelet Volume 8.1; Platelet Count 247 k/uL (150-450); RBC 4.38 m/uL (4.30-5.90); RDW 13.1 % (11.5-15.5); WBC 8.7 k/uL (3.8-10.6)
[2020-12-20 14:26] LABS: African American GFR (CKD) >90 (>60 ml/min/1.73 sqM); Anion Gap 7 mmol/L; Blood Urea Nitrogen 22 mg/dL (9-20); Carbon Dioxide 27 mmol/L (22-30); Chloride 107 mmol/L (98-107); Non-African American GFR(CKD) 89 (>60 ml/min/1.73 sqM); Potassium 5.4 mmol/L (3.5-5.1); Sodium 141 mmol/L (137-145)
== END | disposition home or self-care (01) ==
LOC: LABPAT 12:38
PROVIDERS: ATTEND Internal Medicine Cardiovascular Disease
DX: Z01.812 Encounter for preprocedural laboratory examination (principal); R93.1 Abnormal findings on diagnostic imaging of heart and coronary circulation
CPT/HCPCS: 36415; 80051; 82565; 84520; 85027

== ENCOUNTER 2020-12-26 10:02 | Day surgery (SDC) | payer MEDICARE ==
[2020-12-25 09:05] VITALS: BMI 30.7
[~2020-12-26 10:02] MED LIST changes: +ALPRAZolam 0.25 MG TAB PO PRN; +ALPRAZolam 0.5 MG TAB PO PRN; +ASPIRIN 325 MG TAB PO STA; +ATORVASTATIN 80 MG TAB PO STA; +HEPARIN SODIUM,PORCINE 10,000 UNIT in SODIUM CHLORIDE 0.9% 1,000 ML IRRIGATION PRN; +HEPARIN SODIUM,PORCINE 2,500 UNIT in SODIUM CHLORIDE 0.9% 250 ML IRRIGATION PRN; +NITROGLYCERIN SL TABS 0.4 MG TAB SUBLINGUAL PRN; -REGADENOSON 0.4 MG/5 ML SYRINGE IV PRN; +SODIUM CHLORIDE 0.9% 1,000 ML in EMPTY BAG 1 BAG IV ONE
[2020-12-26] MEDS ORDERED: SODIUM CHLORIDE 0.9% 1,000 ML IV ONE (10:12)
[2020-12-26 10:47] VITALS: TEMP 97.5
[2020-12-26 10:51] LABS: Glucose,Whole Blood 172 mg/dL (75-99)
[2020-12-26] MEDS ORDERED: fentaNYL (PF) 50 MCG/ML 2 ML AMP ONE (11:33)
[2020-12-26] MEDS ORDERED: LIDOCAINE 1% INJ 10MG/ML (20 ML MDV) ONE (11:33)
[2020-12-26] MEDS ORDERED: fentaNYL (PF) 50 MCG/ML 2 ML AMP IV ONE (12:00)
[2020-12-26] MEDS ORDERED: LIDOCAINE 1% INJ 10MG/ML (20 ML MDV) SQ ONE (12:00)
[2020-12-26] MEDS ORDERED: MIDAZOLAM 2 MG/2 ML VIAL IV ONE (12:00)
[2020-12-26] MEDS ORDERED: IOPAMIDOL-370 125ML BTL INJ ONE (12:16)
[2020-12-26] MEDS ORDERED: RX INFO: IV CONTRAST WAS GIVEN 1 EACH MISC MISCELLANE PRN (13:54)
--- NOTE | 2020-12-26 17:17 | CC ---
CARDIAC CATHETERIZATION REPORT REFERRING PHYSICIAN: Dr. Alejandro Henriquez. INDICATION: Abnormal stress test showing ischemia involving inferior wall. PROCEDURE NOTE: After obtaining informed consent, left heart catheterization and coronary angiogram were performed via the right femoral artery using standard Johnathon catheters. The patient tolerated the procedure well without any obvious immediate complications. A femoral angiogram was performed and decision was made for manual hemostasis. FINDINGS: HEMODYNAMICS: Left ventricular end-diastolic pressure is 12-14 mm. There is no significant gradient across the aortic valve. LEFT VENTRICULOGRAM: Not performed. ANGIOGRAPHIC DATA: LEFT MAIN: The left main coronary artery appears calcified but is free of significant stenosis. Divides into left anterior descending coronary artery and circumflex coronary artery. CIRCUMFLEX CORONARY ARTERY: Circumflex coronary artery and its branches are free of significant stenosis. LEFT ANTERIOR DESCENDING CORONARY ARTERY: Mid LAD shows an area of 50% stenosis. RIGHT CORONARY ARTERY: Right coronary artery is a large dominant vessel and is free of significant disease. CONCLUSION: 1. False-positive stress test. 2. 50% stenosis involving mid LAD. PLAN: Patient will be treated with optimal medical therapy. MMODL / IJN: [id number] /
[2020-12-26 19:31] VITALS: RESP 16
[2020-12-26 19:35] VITALS: BP 138/72; PULSE 76
== END 2020-12-26 19:12 | disposition home or self-care (01) ==
LOC: CATHCVL 10:02
PROVIDERS: ATTEND Internal Medicine Cardiovascular Disease
DX: I25.10 Atherosclerotic heart disease of native coronary artery without angina pectoris (principal); E78.2 Mixed hyperlipidemia; I48.0 Paroxysmal atrial fibrillation; E11.9 Type 2 diabetes mellitus without complications; R94.39 Abnormal result of other cardiovascular function study; Z20.822 Contact with and (suspected) exposure to COVID-19; Z87.891 Personal history of nicotine dependence; Z98.49 Cataract extraction status, unspecified eye; Z87.19 Personal history of other diseases of the digestive system; Z79.84 Long term (current) use of oral hypoglycemic drugs; Z79.899 Other long term (current) drug therapy
CPT/HCPCS: 93458; 87635; C1769 ×2; C1894; J2250; J2001; J3010; Q9967

== ENCOUNTER → 2021-01-29 | Outpatient (CLI) | payer MEDICARE | END | disposition home or self-care (01) | DX: E11.8 Type 2 diabetes mellitus with unspecified complications (principal) | CPT/HCPCS: 36415; 80053; 80061; 83036; 84439; 84443; 85025 ==

== ENCOUNTER → 2021-05-01 | Outpatient (CLI) | payer MEDICARE ==
[2021-05-01 16:10] LABS: Basophils # (A) 0.03 X 10*3/uL (0.00-0.10); Basophils % (A) 0.4 %; Eosinophils # (A) 0.27 X 10*3/uL (0.04-0.35); Eosinophils % (A) 3.6 %; HGB 13.9 g/dL (13.0-17.0); Lymphocytes # (A) 1.46 X 10*3/uL (0.90-5.00); Lymphocytes % (A) 19.7 %; MCH 30.5 pg (27.0-32.0); MCHC 30.9 g/dL (32.0-37.0); MCV 98.9 fL (80.0-97.0); Mean Platelet Volume 11.1 fL (9.5-12.2); Monocytes # (A) 0.71 X 10*3/uL (0.20-1.00); Monocytes % (A) 9.6 %; Neutrophils # (A) 4.91 X 10*3/uL (1.80-7.70); Neutrophils % (A) 66.4 %; Platelet Count 271 X 10*3/uL (140-440); RBC 4.55 X 10*6/uL (4.40-5.60); RDW 13.9 % (11.5-14.5)
[2021-05-01 19:33] LABS: Chol/HDL Ratio 2.92 Ratio; LDL Cholesterol,Calculated 72.9 mg/dL (0.0-131.0)
== END | disposition home or self-care (01) ==
LOC: LABWHC1 09:53
PROVIDERS: ATTEND Family Medicine
DX: E11.8 Type 2 diabetes mellitus with unspecified complications (principal); Z12.5 Encounter for screening for malignant neoplasm of prostate
CPT/HCPCS: 36415; 80053; 80061; 83036; 84153; 85025

== ENCOUNTER → 2021-09-24 | Outpatient (CLI) | payer MEDICARE ==
[2021-09-24 18:22] LABS: Basophils # (A) 0.03 X 10*3/uL (0.00-0.10); Basophils % (A) 0.5 %; Eosinophils # (A) 0.22 X 10*3/uL (0.04-0.35); Eosinophils % (A) 3.5 %; HGB 13.8 g/dL (13.0-17.0); Immature Grans, Automated 0.3 %; Lymphocytes # (A) 1.25 X 10*3/uL (0.90-5.00); Lymphocytes % (A) 20.1 %; MCH 30.7 pg (27.0-32.0); MCHC 31.4 g/dL (32.0-37.0); Mean Platelet Volume 11.1 fL (9.5-12.2); Monocytes # (A) 0.59 X 10*3/uL (0.20-1.00); Monocytes % (A) 9.5 %; NRBC Per 100 WBC 0 /100 WBCS (0.0-0.0); Neutrophils # (A) 4.12 X 10*3/uL (1.80-7.70); Neutrophils % (A) 66.1 %; Platelet Count 278 X 10*3/uL (140-440); RBC 4.49 X 10*6/uL (4.40-5.60); RDW 13.7 % (11.5-14.5); WBC 6.23 X 10*3/uL (4.50-10.00)
[2021-09-24 18:40] LABS: ALT 20 U/L (10-49); AST 23 U/L (14-35); African American GFR (CKD) 100.4 (60.0-200.0); Albumin 4.1 g/dL (3.8-4.9); Albumin/Globulin Ratio 1.52 (1.60-3.17); Alkaline Phosphatase 70 U/L (41-126); BUN/Creat Ratio 20.14 Ratio (12.00-20.00); Blood Urea Nitrogen 14.1 mg/dL (9.0-27.0); Calcium 9.7 mg/dL (8.7-10.3); Carbon Dioxide 24.8 mmol/L (20.0-27.5); Chloride 100 mmol/L (96-109); Globulin 2.7 g/dL (1.6-3.3); Glucose 157 mg/dL (70-110); Non-African American GFR(CKD) 86.7 (60.0-200.0); Potassium 4.4 mmol/L (3.5-5.5); Sodium 136 mmol/L (135-145); Total Protein 6.8 g/dL (6.2-8.2)
[2021-09-24 18:41] LABS: Chol/HDL Ratio 3.21 Ratio; LDL Cholesterol,Calculated 77.3 mg/dL (0.0-131.0)
== END | disposition home or self-care (01) ==
LOC: LABWHC1 11:45
PROVIDERS: ATTEND Family Medicine
DX: Z12.5 Encounter for screening for malignant neoplasm of prostate (principal); E11.8 Type 2 diabetes mellitus with unspecified complications
CPT/HCPCS: 36415; 80053; 80061; 83036; 84153; 85025

== ENCOUNTER → 2021-09-30 | Outpatient (CLI) | payer MEDICARE ==
--- NOTE | 2021-09-30 18:04 | XR ---
EXAMINATION TYPE: XR chest 2V DATE OF EXAM: 09/30/2021 COMPARISON: X-ray dated 10/03/2018 HISTORY: 86-year-old male, dyspnea TECHNIQUE: Frontal and lateral views of the chest are obtained. FINDINGS: Minimal left linear basal pulmonary atelectasis. Congested bilateral pulmonary vasculature with prominent interstitial lung markings, suggestive of mild pulmonary edema, please correlate clin ically. Grossly unremarkable remainder of the lungs. No sizable pleural effusion or definite pneumothorax. No gross cardiomegaly. Aortic atherosclerotic calcifications. Degenerative changes of the thoracic spin e. IMPRESSION: Suspected mild pulmonary edema, please correlate clinically. Other incidental findings as described otf elkins.
== END | disposition home or self-care (01) ==
LOC: RADXRMAIN 15:22
PROVIDERS: ATTEND Family Medicine
DX: I49.8 Other specified cardiac arrhythmias (principal); I45.10 Unspecified right bundle-branch block; R94.31 Abnormal electrocardiogram [ECG] [EKG]
CPT/HCPCS: 71046; 93005

== ENCOUNTER → 2021-10-11 | Outpatient (CLI) | payer MEDICARE ==
[2021-10-11 18:30] LABS: African American GFR (CKD) 63.3 (60.0-200.0); Anion Gap 12.1 mmol/L (10.00-18.00); BUN/Creat Ratio 41.9 Ratio (12.00-20.00); Blood Urea Nitrogen 50.7 mg/dL (9.0-27.0); Calcium 10.6 mg/dL (8.7-10.3); Carbon Dioxide 25.7 mmol/L (20.0-27.5); Non-African American GFR(CKD) 54.6 (60.0-200.0); Potassium 5.3 mmol/L (3.5-5.5)
== END | disposition home or self-care (01) ==
LOC: LABWHC1 11:44
PROVIDERS: ATTEND Internal Medicine Cardiovascular Disease
DX: I50.9 Heart failure, unspecified (principal)
CPT/HCPCS: 36415; 80048; 83880

== ENCOUNTER → 2021-12-27 | Outpatient (CLI) | payer MEDICARE ==
[2021-12-27 18:27] LABS: Basophils # (A) 0.02 X 10*3/uL (0.00-0.10); Basophils % (A) 0.3 %; Eosinophils # (A) 0.26 X 10*3/uL (0.04-0.35); Eosinophils % (A) 3.6 %; HCT 44.7 % (39.6-50.0); HGB 13.8 g/dL (13.0-17.0); Immature Grans, Automated 0.4 %; Lymphocytes # (A) 1.35 X 10*3/uL (0.90-5.00); Lymphocytes % (A) 18.9 %; MCH 30.6 pg (27.0-32.0); MCHC 30.9 g/dL (32.0-37.0); MCV 99.1 fL (80.0-97.0); Monocytes # (A) 0.69 X 10*3/uL (0.20-1.00); Monocytes % (A) 9.7 %; NRBC Per 100 WBC 0 /100 WBCS (0.0-0.0); Neutrophils # (A) 4.79 X 10*3/uL (1.80-7.70); Neutrophils % (A) 67.1 %; Platelet Count 285 X 10*3/uL (140-440); RBC 4.51 X 10*6/uL (4.40-5.60); RDW 14.6 % (11.5-14.5); WBC 7.14 X 10*3/uL (4.50-10.00)
[2021-12-27 18:52] LABS: ALT 19 U/L (10-49); AST 23 U/L (14-35); African American GFR (CKD) 95.6 (60.0-200.0); Albumin 3.9 g/dL (3.8-4.9); Albumin/Globulin Ratio 1.66 (1.60-3.17); Alkaline Phosphatase 69 U/L (41-126); BUN/Creat Ratio 21.52 Ratio (12.00-20.00); Calcium 9.9 mg/dL (8.7-10.3); Carbon Dioxide 24.9 mmol/L (20.0-27.5); Chloride 106 mmol/L (96-109); Chol/HDL Ratio 3.78 Ratio; Globulin 2.4 g/dL (1.6-3.3); Glucose 131 mg/dL (70-110); LDL Cholesterol,Calculated 98.7 mg/dL (0.0-131.0); Non-African American GFR(CKD) 82.5 (60.0-200.0); Potassium 4.8 mmol/L (3.5-5.5); Sodium 140 mmol/L (135-145); Total Protein 6.3 g/dL (6.2-8.2)
== END | disposition home or self-care (01) ==
LOC: LABWHC1 12:16
PROVIDERS: ATTEND Family Medicine
DX: E11.8 Type 2 diabetes mellitus with unspecified complications (principal)
CPT/HCPCS: 36415; 80053; 80061; 83036; 85025

== ENCOUNTER → 2022-04-11 | Outpatient (CLI) | payer MEDICARE ==
[2022-04-11 18:21] LABS: Basophils # (A) 0.03 X 10*3/uL (0.00-0.10); Basophils % (A) 0.4 %; Eosinophils # (A) 0.36 X 10*3/uL (0.04-0.35); HCT 45.8 % (39.6-50.0); HGB 14.4 g/dL (13.0-17.0); Immature Grans, Automated 0.6 %; Lymphocytes # (A) 1.18 X 10*3/uL (0.90-5.00); Lymphocytes % (A) 16.2 %; MCH 30.3 pg (27.0-32.0); MCHC 31.4 g/dL (32.0-37.0); MCV 96.4 fL (80.0-97.0); Mean Platelet Volume 11.3 fL (9.5-12.2); Monocytes # (A) 0.75 X 10*3/uL (0.20-1.00); Monocytes % (A) 10.3 %; NRBC Per 100 WBC 0 /100 WBCS (0.0-0.0); Neutrophils # (A) 4.91 X 10*3/uL (1.80-7.70); Neutrophils % (A) 67.5 %; Platelet Count 247 X 10*3/uL (140-440); RBC 4.75 X 10*6/uL (4.40-5.60); RDW 14.2 % (11.5-14.5); WBC 7.27 X 10*3/uL (4.50-10.00)
[2022-04-11 19:17] LABS: ALT 16 U/L (10-49); AST 21 U/L (14-35); Albumin 3.8 g/dL (3.8-4.9); Albumin/Globulin Ratio 1.67 (1.60-3.17); Alkaline Phosphatase 78 U/L (41-126); BUN/Creat Ratio 30.78 Ratio (12.00-20.00); Blood Urea Nitrogen 29.3 mg/dL (9.0-27.0); Calcium 9.8 mg/dL (8.7-10.3); Chloride 100 mmol/L (96-109); Chol/HDL Ratio 2.88 Ratio; Globulin 2.3 g/dL (1.6-3.3); Glucose 150 mg/dL (70-110); LDL Cholesterol,Calculated 63.1 mg/dL (0.0-131.0); Non-African American GFR(CKD) 72.5 (60.0-200.0); Potassium 5.1 mmol/L (3.5-5.5); Sodium 139 mmol/L (135-145); Total Protein 6.1 g/dL (6.2-8.2)
== END | disposition home or self-care (01) ==
LOC: LABWHC1 10:19
PROVIDERS: ATTEND Family Medicine
DX: E11.8 Type 2 diabetes mellitus with unspecified complications (principal); E11.42 Type 2 diabetes mellitus with diabetic polyneuropathy
CPT/HCPCS: 36415; 80053; 80061; 83036; 85025

== ENCOUNTER → 2022-08-22 | Outpatient (CLI) | payer MEDICARE ==
[2022-08-22 18:48] LABS: Basophils # (A) 0.03 X 10*3/uL (0.00-0.10); Basophils % (A) 0.4 %; Eosinophils # (A) 0.29 X 10*3/uL (0.04-0.35); Eosinophils % (A) 4.2 %; HCT 45.6 % (39.6-50.0); HGB 13.8 g/dL (13.0-17.0); Immature Grans, Automated 0.1 %; Lymphocytes # (A) 1.23 X 10*3/uL (0.90-5.00); Lymphocytes % (A) 17.9 %; MCH 30.6 pg (27.0-32.0); MCHC 30.3 g/dL (32.0-37.0); MCV 101.1 fL (80.0-97.0); Monocytes # (A) 0.71 X 10*3/uL (0.20-1.00); Monocytes % (A) 10.3 %; NRBC Per 100 WBC 0 /100 WBCS (0.0-0.0); Neutrophils # (A) 4.59 X 10*3/uL (1.80-7.70); Neutrophils % (A) 67.1 %; Platelet Count 252 X 10*3/uL (140-440); RBC 4.51 X 10*6/uL (4.40-5.60); RDW 14.3 % (11.5-14.5); WBC 6.86 X 10*3/uL (4.50-10.00)
[2022-08-22 18:55] LABS: ALT 15 U/L (10-49); AST 21 U/L (14-35); African American GFR (CKD) 89.9 (60.0-200.0); Albumin 3.9 g/dL (3.8-4.9); Albumin/Globulin Ratio 1.44 (1.60-3.17); Alkaline Phosphatase 67 U/L (41-126); BUN/Creat Ratio 23.11 Ratio (12.00-20.00); Blood Urea Nitrogen 20.8 mg/dL (9.0-27.0); Calcium 9.9 mg/dL (8.7-10.3); Carbon Dioxide 27.2 mmol/L (20.0-27.5); Chloride 106 mmol/L (96-109); Chol/HDL Ratio 2.75 Ratio; Globulin 2.7 g/dL (1.6-3.3); Glucose 144 mg/dL (70-110); LDL Cholesterol,Calculated 61.6 mg/dL (0.0-131.0); Non-African American GFR(CKD) 77.6 (60.0-200.0); Potassium 4.9 mmol/L (3.5-5.5); Sodium 141 mmol/L (135-145); Total Protein 6.6 g/dL (6.2-8.2)
== END | disposition home or self-care (01) ==
LOC: LABWHC1 10:02
PROVIDERS: ATTEND Family Medicine
DX: E11.42 Type 2 diabetes mellitus with diabetic polyneuropathy (principal)
CPT/HCPCS: 36415; 80053; 80061; 83036; 85025

== ENCOUNTER → 2022-11-17 | Outpatient (CLI) | payer MEDICARE ==
[2022-11-17 15:22] LABS: Basophils # (A) 0.04 X 10*3/uL (0.00-0.10); Basophils % (A) 0.6 %; Eosinophils # (A) 0.21 X 10*3/uL (0.04-0.35); Eosinophils % (A) 3.2 %; HCT 47.3 % (39.6-50.0); HGB 14.3 g/dL (13.0-17.0); Immature Grans, Automated 0.3 %; Lymphocytes # (A) 1.22 X 10*3/uL (0.90-5.00); Lymphocytes % (A) 18.4 %; MCH 29.7 pg (27.0-32.0); MCHC 30.2 g/dL (32.0-37.0); MCV 98.3 fL (80.0-97.0); Mean Platelet Volume 10.7 fL (9.5-12.2); Monocytes # (A) 0.59 X 10*3/uL (0.20-1.00); Monocytes % (A) 8.9 %; NRBC Per 100 WBC 0 /100 WBCS (0.0-0.0); Neutrophils # (A) 4.54 X 10*3/uL (1.80-7.70); Neutrophils % (A) 68.6 %; Platelet Count 262 X 10*3/uL (140-440); RBC 4.81 X 10*6/uL (4.40-5.60); RDW 14.5 % (11.5-14.5); WBC 6.62 X 10*3/uL (4.50-10.00)
[2022-11-17 15:43] LABS: African American GFR (CKD) 97.1 (60.0-200.0); BUN/Creat Ratio 25.17 Ratio (12.00-20.00); Blood Urea Nitrogen 18.8 mg/dL (9.0-27.0); Calcium 10.1 mg/dL (8.7-10.3); Carbon Dioxide 27.6 mmol/L (20.0-27.5); Chloride 105 mmol/L (96-109); Glucose 125 mg/dL (70-110); Non-African American GFR(CKD) 83.8 (60.0-200.0); Potassium 4.9 mmol/L (3.5-5.5); Sodium 142 mmol/L (135-145); Total Protein 6.3 g/dL (6.2-8.2)
[2022-11-17 15:44] LABS: ALT 16 U/L (10-49); AST 22 U/L (14-35); Albumin/Globulin Ratio 1.75 (1.60-3.17); Alkaline Phosphatase 72 U/L (41-126); Globulin 2.3 g/dL (1.6-3.3); LDL Cholesterol,Calculated 69.1 mg/dL (0.0-131.0)
== END | disposition home or self-care (01) ==
LOC: LABWHC1 09:57
PROVIDERS: ATTEND Family Medicine
DX: Z12.5 Encounter for screening for malignant neoplasm of prostate (principal); E11.8 Type 2 diabetes mellitus with unspecified complications; E11.42 Type 2 diabetes mellitus with diabetic polyneuropathy
CPT/HCPCS: 36415; 80053; 80061; 83036; 84153; 84439; 84443; 85025

== ENCOUNTER → 2023-02-12 | Outpatient (CLI) | payer MEDICARE ==
[2023-02-12 16:04] LABS: Basophils # (A) 0.03 X 10*3/uL (0.00-0.10); Basophils % (A) 0.4 %; Eosinophils # (A) 0.28 X 10*3/uL (0.04-0.35); Eosinophils % (A) 4.1 %; HCT 47.5 % (39.6-50.0); Lymphocytes # (A) 1.21 X 10*3/uL (0.90-5.00); Lymphocytes % (A) 17.8 %; MCH 30.9 pg (27.0-32.0); MCHC 31.6 d/dL (32.0-37.0); MCV 97.7 FL (80.0-97.0); Monocytes # (A) 0.74 X 10*3/uL (0.20-1.00); Monocytes % (A) 10.9 %; NRBC Per 100 WBC 0 X 10*3/uL (0.00-0.01); Neutrophils # (A) 4.49 X 10*3/uL (1.80-7.70); Neutrophils % (A) 66.4 %; Platelet Count 255 X 10*3/uL (140-440); RBC 4.86 X 10*6/uL (4.40-5.60); RDW 14.6 % (11.5-14.5); WBC 6.78 X 10*3/uL (4.50-10.00)
[2023-02-12 16:18] LABS: BUN/Creat Ratio 23.12 Ratio (12.00-20.00); Blood Urea Nitrogen 18.5 mg/dL (9.0-27.0); Chloride 108 mmol/L (96-109); Glucose 133 mg/dL (70-110); Sodium 143 mmol/L (135-145)
[2023-02-12 16:19] LABS: ALT 20 U/L (10-49); AST 24 U/L (14-35); Albumin 4.1 d/dL (3.8-4.9); Albumin/Globulin Ratio 1.71 Ratio (1.60-3.17); Alkaline Phosphatase 68 U/L (41-126); Calcium 10.3 mg/dL (8.7-10.3); Carbon Dioxide 26.9 mmol/L (21.6-31.8); Globulin 2.4 d/dL (1.6-3.3); Total Bilirubin 0.3 mg/dL (0.3-1.2); Total Protein 6.5 d/dL (6.2-8.2)
== END | disposition home or self-care (01) ==
LOC: LABWHC1 10:32
PROVIDERS: ATTEND Family Medicine
DX: E11.42 Type 2 diabetes mellitus with diabetic polyneuropathy (principal)
CPT/HCPCS: 36415; 80053; 83036; 85025

== ENCOUNTER → 2023-05-21 | Outpatient (CLI) | payer MEDICARE ==
[2023-05-21 16:41] LABS: ALT 19 U/L (10-49); AST 23 U/L (14-35); Albumin/Globulin Ratio 1.74 Ratio (1.60-3.17); Alkaline Phosphatase 85 U/L (41-126); BUN/Creat Ratio 20.62 Ratio (12.00-20.00); Blood Urea Nitrogen 16.5 mg/dL (9.0-27.0); Calcium 10.2 mg/dL (8.7-10.3); Carbon Dioxide 27.9 mmol/L (21.6-31.8); Chloride 103 mmol/L (96-109); Chol/HDL Ratio 2.62 Ratio; Globulin 2.3 d/dL (1.6-3.3); Glucose 130 mg/dL (70-110); LDL Cholesterol,Calculated 62.7 mg/dL (0.0-131.0); Potassium 5.1 mmol/L (3.5-5.5); Sodium 142 mmol/L (135-145); Total Bilirubin 0.5 mg/dL (0.3-1.2); Total Protein 6.3 d/dL (6.2-8.2)
[2023-05-21 16:59] LABS: Basophils # (A) 0.05 X 10*3/uL (0.00-0.10); Basophils % (A) 0.7 %; Eosinophils # (A) 0.26 X 10*3/uL (0.04-0.35); Eosinophils % (A) 3.6 %; HCT 46.8 % (39.6-50.0); HGB 14.7 d/dL (13.0-17.0); Lymphocytes # (A) 1.38 X 10*3/uL (0.90-5.00); Lymphocytes % (A) 19.3 %; MCH 31.3 pg (27.0-32.0); MCHC 31.4 d/dL (32.0-37.0); MCV 99.6 FL (80.0-97.0); Monocytes # (A) 0.76 X 10*3/uL (0.20-1.00); Monocytes % (A) 10.6 %; NRBC Per 100 WBC 0 X 10*3/uL (0.00-0.01); Neutrophils # (A) 4.68 X 10*3/uL (1.80-7.70); Neutrophils % (A) 65.5 %; Platelet Count 254 X 10*3/uL (140-440); RDW 13.8 % (11.5-14.5); WBC 7.15 X 10*3/uL (4.50-10.00)
== END | disposition home or self-care (01) ==
LOC: LABWHC1 10:44
PROVIDERS: ATTEND Family Medicine
DX: E11.8 Type 2 diabetes mellitus with unspecified complications (principal); E11.42 Type 2 diabetes mellitus with diabetic polyneuropathy
CPT/HCPCS: 36415; 80053; 80061; 83036; 85025

== ENCOUNTER → 2023-08-21 | Outpatient (CLI) | payer MEDICARE ==
[2023-08-21 15:39] LABS: Basophils # (A) 0.03 X 10*3/uL (0.00-0.10); Basophils % (A) 0.4 %; Eosinophils # (A) 0.26 X 10*3/uL (0.04-0.35); Eosinophils % (A) 3.8 %; HCT 47.5 % (39.6-50.0); HGB 14.8 g/dL (13.0-17.0); Lymphocytes # (A) 1.21 X 10*3/uL (0.90-5.00); Lymphocytes % (A) 17.7 %; MCH 30.9 pg (27.0-32.0); MCHC 31.2 g/dL (32.0-37.0); MCV 99.2 FL (80.0-97.0); Mean Platelet Volume 11.1 FL (9.5-12.2); Monocytes # (A) 0.73 X 10*3/uL (0.20-1.00); Monocytes % (A) 10.7 %; NRBC Per 100 WBC 0 X 10*3/uL (0.00-0.01); Neutrophils # (A) 4.58 X 10*3/uL (1.80-7.70); Platelet Count 255 X 10*3/uL (140-440); RBC 4.79 X 10*6/uL (4.40-5.60); RDW 13.7 % (11.5-14.5); WBC 6.84 X 10*3/uL (4.50-10.00)
[2023-08-21 16:32] LABS: ALT 13 U/L (10-49); AST 20 U/L (14-35); Albumin/Globulin Ratio 1.67 Ratio (1.60-3.17); Alkaline Phosphatase 74 U/L (41-126); BUN/Creat Ratio 26.22 Ratio (12.00-20.00); Blood Urea Nitrogen 23.6 mg/dL (9.0-27.0); Carbon Dioxide 26.8 mmol/L (21.6-31.8); Chloride 106 mmol/L (96-109); Chol/HDL Ratio 2.83 Ratio; Globulin 2.4 g/dL (1.6-3.3); Glucose 149 mg/dL (70-110); LDL Cholesterol,Calculated 67.6 mg/dL (0.0-131.0); Potassium 5.1 mmol/L (3.5-5.5); Sodium 143 mmol/L (135-145); Total Bilirubin 0.4 mg/dL (0.3-1.2); Total Protein 6.4 g/dL (6.2-8.2)
== END | disposition home or self-care (01) ==
LOC: LABWHC1 09:42
PROVIDERS: ATTEND Family Medicine
DX: E11.42 Type 2 diabetes mellitus with diabetic polyneuropathy (principal); E11.8 Type 2 diabetes mellitus with unspecified complications
CPT/HCPCS: 36415; 80053; 80061; 83036; 84443; 84481; 85025

== ENCOUNTER → 2023-08-27 | Outpatient (CLI) | payer MEDICARE ==
--- NOTE | 2023-08-27 15:44 | XR ---
EXAMINATION TYPE: XR chest 2V DATE OF EXAM: 08/27/2023 COMPARISON: 09/30/2021 INDICATION: Heart failure TECHNIQUE: Frontal and lateral views of the chest are obtained. FINDINGS: The heart size is normal. The pulmonary vasculature is normal. The lungs are clear. Hyperinflation flattening the diaphragms compatible with COPD. IMPRESSION: 1. No acute pulmonary process.
== END | disposition home or self-care (01) ==
LOC: RADXRMAIN 14:34
PROVIDERS: ATTEND Family Medicine
DX: I50.9 Heart failure, unspecified (principal)
CPT/HCPCS: 71046

== ENCOUNTER → 2023-11-23 | Outpatient (CLI) | payer MEDICARE ==
[2023-11-23 14:29] LABS: Basophils # (A) 0.04 X 10*3/uL (0.00-0.10); Basophils % (A) 0.5 %; Eosinophils # (A) 0.28 X 10*3/uL (0.04-0.35); Eosinophils % (A) 3.8 %; HCT 47.1 % (39.6-50.0); HGB 15.4 g/dL (13.0-17.0); Lymphocytes # (A) 1.24 X 10*3/uL (0.90-5.00); MCH 31.7 pg (27.0-32.0); MCHC 32.7 g/dL (32.0-37.0); MCV 96.9 FL (80.0-97.0); Mean Platelet Volume 10.7 FL (9.5-12.2); Monocytes # (A) 0.74 X 10*3/uL (0.20-1.00); Monocytes % (A) 10.1 %; NRBC Per 100 WBC 0 X 10*3/uL (0.00-0.01); Neutrophils # (A) 4.99 X 10*3/uL (1.80-7.70); Neutrophils % (A) 68.3 %; Platelet Count 242 X 10*3/uL (140-440); RBC 4.86 X 10*6/uL (4.40-5.60); WBC 7.31 X 10*3/uL (4.50-10.00)
[2023-11-23 14:58] LABS: ALT 16 U/L (10-49); AST 24 U/L (14-35); Alkaline Phosphatase 76 U/L (41-126); Blood Urea Nitrogen 17.5 mg/dL (9.0-27.0); Calcium 10.3 mg/dL (8.7-10.3); Carbon Dioxide 26.3 mmol/L (21.6-31.8); Chloride 104 mmol/L (96-109); Chol/HDL Ratio 2.63 Ratio; Globulin 2.5 g/dL (1.6-3.3); Glucose 116 mg/dL (70-110); LDL Cholesterol,Calculated 60.3 mg/dL (0.0-131.0); Potassium 4.7 mmol/L (3.5-5.5); Sodium 141 mmol/L (135-145); Total Bilirubin 0.3 mg/dL (0.3-1.2); Total Protein 6.5 g/dL (6.2-8.2)
== END | disposition home or self-care (01) ==
LOC: LABWHC1 09:34
PROVIDERS: ATTEND Family Medicine
DX: E11.8 Type 2 diabetes mellitus with unspecified complications (principal); E11.42 Type 2 diabetes mellitus with diabetic polyneuropathy
CPT/HCPCS: 36415; 80053; 80061; 83036; 85025

== ENCOUNTER → 2024-02-22 | Outpatient (CLI) | payer MEDICARE ==
[2024-02-22 17:23] LABS: Basophils # (A) 0.05 X 10*3/uL (0.00-0.10); Basophils % (A) 0.6 %; Eosinophils # (A) 0.27 X 10*3/uL (0.04-0.35); Eosinophils % (A) 3.5 %; HCT 46.7 % (39.6-50.0); HGB 14.9 g/dL (13.0-17.0); Lymphocytes # (A) 1.36 X 10*3/uL (0.90-5.00); Lymphocytes % (A) 17.6 %; MCH 31.4 pg (27.0-32.0); MCHC 31.9 g/dL (32.0-37.0); MCV 98.3 FL (80.0-97.0); Mean Platelet Volume 10.6 FL (9.5-12.2); Monocytes # (A) 0.81 X 10*3/uL (0.20-1.00); Monocytes % (A) 10.5 %; NRBC Per 100 WBC 0 X 10*3/uL (0.00-0.01); Neutrophils # (A) 5.21 X 10*3/uL (1.80-7.70); Neutrophils % (A) 67.3 %; Platelet Count 277 X 10*3/uL (140-440); RBC 4.75 X 10*6/uL (4.40-5.60); RDW 14.2 % (11.5-14.5); WBC 7.74 X 10*3/uL (4.50-10.00)
[2024-02-22 17:27] LABS: ALT 18 U/L (10-49); AST 22 U/L (14-35); Albumin/Globulin Ratio 1.82 Ratio (1.60-3.17); Alkaline Phosphatase 74 U/L (41-126); BUN/Creat Ratio 22.38 Ratio (12.00-20.00); Blood Urea Nitrogen 17.9 mg/dL (9.0-27.0); Calcium 10.1 mg/dL (8.7-10.3); Carbon Dioxide 26.8 mmol/L (21.6-31.8); Chloride 105 mmol/L (96-109); Chol/HDL Ratio 2.74 Ratio; Globulin 2.2 g/dL (1.6-3.3); Glucose 106 mg/dL (70-110); Potassium 4.7 mmol/L (3.5-5.5); Sodium 141 mmol/L (135-145); Total Bilirubin 0.2 mg/dL (0.3-1.2); Total Protein 6.2 g/dL (6.2-8.2)
== END | disposition home or self-care (01) ==
LOC: LABWHC1 10:15
PROVIDERS: ATTEND Family Medicine
DX: Z12.5 Encounter for screening for malignant neoplasm of prostate (principal); E11.22 Type 2 diabetes mellitus with diabetic chronic kidney disease; N18.9 Chronic kidney disease, unspecified; E11.21 Type 2 diabetes mellitus with diabetic nephropathy; E11.65 Type 2 diabetes mellitus with hyperglycemia
CPT/HCPCS: 36415; 80053; 80061; 83036; 84153; 85025

== ENCOUNTER → 2024-05-23 | Outpatient (CLI) | payer MEDICARE ==
[2024-05-23 16:36] LABS: ALT 24 U/L (10-49); AST 25 U/L (14-35); Albumin 3.7 g/dL (3.8-4.9); Albumin/Globulin Ratio 1.68 Ratio (1.60-3.17); Alkaline Phosphatase 80 U/L (41-126); BUN/Creat Ratio 20.88 Ratio (12.00-20.00); Blood Urea Nitrogen 16.7 mg/dL (9.0-27.0); Calcium 9.9 mg/dL (8.7-10.3); Carbon Dioxide 26.3 mmol/L (21.6-31.8); Chloride 106 mmol/L (96-109); Chol/HDL Ratio 2.56 Ratio; Globulin 2.2 g/dL (1.6-3.3); Glucose 124 mg/dL (70-110); LDL Cholesterol,Calculated 60.1 mg/dL (0.0-131.0); Sodium 141 mmol/L (135-145); Total Bilirubin 0.3 mg/dL (0.3-1.2); Total Protein 5.9 g/dL (6.2-8.2); VLDL Calculation 19.06 mg/dL (5.00-40.00)
[2024-05-23 17:15] LABS: Basophils # (A) 0.03 X 10*3/uL (0.00-0.10); Basophils % (A) 0.5 %; Eosinophils # (A) 0.25 X 10*3/uL (0.04-0.35); Eosinophils % (A) 4.3 %; HCT 46.7 % (39.6-50.0); HGB 14.9 g/dL (13.0-17.0); Lymphocytes # (A) 1.02 X 10*3/uL (0.90-5.00); Lymphocytes % (A) 17.7 %; MCH 31.9 pg (27.0-32.0); MCHC 31.9 g/dL (32.0-37.0); Monocytes # (A) 0.73 X 10*3/uL (0.20-1.00); Monocytes % (A) 12.7 %; NRBC Per 100 WBC 0 X 10*3/uL (0.00-0.01); Neutrophils % (A) 64.5 %; Platelet Count 283 X 10*3/uL (140-440); RBC 4.67 X 10*6/uL (4.40-5.60); RDW 14.7 % (11.5-14.5); WBC 5.75 X 10*3/uL (4.50-10.00)
== END | disposition home or self-care (01) ==
LOC: LABWHC1 10:08
PROVIDERS: ATTEND Family Medicine
DX: E11.65 Type 2 diabetes mellitus with hyperglycemia (principal)
CPT/HCPCS: 36415; 80053; 80061; 83036; 85025

== ENCOUNTER → 2024-08-26 | Outpatient (CLI) | payer MEDICARE ==
[2024-08-26 14:57] LABS: Basophils # (A) 0.04 X 10*3/uL (0.00-0.10); Basophils % (A) 0.5 %; Eosinophils # (A) 0.17 X 10*3/uL (0.04-0.35); Eosinophils % (A) 2.3 %; HCT 46.4 % (39.6-50.0); HGB 14.5 g/dL (13.0-17.0); Lymphocytes # (A) 2.55 X 10*3/uL (0.90-5.00); Lymphocytes % (A) 34.6 %; MCH 28.2 pg (27.0-32.0); MCHC 31.3 g/dL (32.0-37.0); MCV 90.1 FL (80.0-97.0); Mean Platelet Volume 11.6 FL (9.5-12.2); Monocytes # (A) 0.43 X 10*3/uL (0.20-1.00); Monocytes % (A) 5.8 %; NRBC Per 100 WBC 0 X 10*3/uL (0.00-0.01); Neutrophils # (A) 4.17 X 10*3/uL (1.80-7.70); Neutrophils % (A) 56.7 %; Platelet Count 212 X 10*3/uL (140-440); RBC 5.15 X 10*6/uL (4.40-5.60); WBC 7.37 X 10*3/uL (4.50-10.00)
[2024-08-26 15:05] LABS: ALT 28 U/L (10-49); AST 30 U/L (14-35); Albumin 3.8 g/dL (3.8-4.9); Albumin/Globulin Ratio 1.46 Ratio (1.60-3.17); Alkaline Phosphatase 99 U/L (41-126); BUN/Creat Ratio 24.75 Ratio (12.00-20.00); Blood Urea Nitrogen 19.8 mg/dL (9.0-27.0); Calcium 10.1 mg/dL (8.7-10.3); Carbon Dioxide 28.8 mmol/L (21.6-31.8); Chloride 105 mmol/L (96-109); Globulin 2.6 g/dL (1.6-3.3); Glucose 143 mg/dL (70-110); LDL Cholesterol,Calculated 60.6 mg/dL (0.0-131.0); Potassium 5.1 mmol/L (3.5-5.5); Sodium 142 mmol/L (135-145); Total Bilirubin 0.4 mg/dL (0.3-1.2); Total Protein 6.4 g/dL (6.2-8.2)
== END | disposition home or self-care (01) ==
LOC: LABWHC1 09:52
PROVIDERS: ATTEND Family Medicine
DX: E11.65 Type 2 diabetes mellitus with hyperglycemia (principal)
CPT/HCPCS: 36415; 80053; 80061; 83036; 85025

== ENCOUNTER → 2024-11-25 | Outpatient (CLI) | payer MEDICARE ==
[2024-11-25 16:06] LABS: Basophils # (A) 0.04 X 10*3/uL (0.00-0.10); Basophils % (A) 0.5 %; Eosinophils # (A) 0.26 X 10*3/uL (0.04-0.35); Eosinophils % (A) 3.6 %; HCT 49.1 % (39.6-50.0); HGB 15.5 g/dL (13.0-17.0); Lymphocytes # (A) 1.09 X 10*3/uL (0.90-5.00); MCH 31.6 pg (27.0-32.0); MCHC 31.6 g/dL (32.0-37.0); Mean Platelet Volume 10.9 FL (9.5-12.2); Monocytes # (A) 0.77 X 10*3/uL (0.20-1.00); Monocytes % (A) 10.6 %; NRBC Per 100 WBC 0 X 10*3/uL (0.00-0.01); Neutrophils # (A) 5.08 X 10*3/uL (1.80-7.70); Neutrophils % (A) 69.8 %; Platelet Count 317 X 10*3/uL (140-440); RBC 4.91 X 10*6/uL (4.40-5.60); RDW 14.6 % (11.5-14.5); WBC 7.28 X 10*3/uL (4.50-10.00)
[2024-11-25 17:18] LABS: ALT 28 U/L (10-49); AST 31 U/L (14-35); Albumin 3.6 g/dL (3.8-4.9); Albumin/Globulin Ratio 1.44 Ratio (1.60-3.17); Alkaline Phosphatase 98 U/L (41-126); BUN/Creat Ratio 25.14 Ratio (12.00-20.00); Blood Urea Nitrogen 17.6 mg/dL (9.0-27.0); Carbon Dioxide 29.4 mmol/L (21.6-31.8); Chloride 107 mmol/L (96-109); Chol/HDL Ratio 2.49 Ratio; Globulin 2.5 g/dL (1.6-3.3); Glucose 144 mg/dL (70-110); LDL Cholesterol,Calculated 53.7 mg/dL (0.0-131.0); Potassium 4.6 mmol/L (3.5-5.5); Sodium 146 mmol/L (135-145); Total Bilirubin 0.3 mg/dL (0.3-1.2); Total Protein 6.1 g/dL (6.2-8.2)
== END | disposition home or self-care (01) ==
LOC: LABWHC1 10:54
PROVIDERS: ATTEND Family Medicine
DX: E11.65 Type 2 diabetes mellitus with hyperglycemia (principal)
CPT/HCPCS: 36415; 80053; 80061; 83036; 85025